=== PATIENT | male | born 1960 | race African-American/Black ===

== ENCOUNTER 2022-04-26 13:00 | Emergency (ER) | payer MEDICAID, SELFPAY ==
[2022-04-26] VITALS (7 sets, daily range): BP systolic 118–157; BP diastolic 45–88; PULSE 53–69; RESP 10–18; TEMP 36.8; O2SAT 98–100; BMI 23.5
--- NOTE | 2022-04-26 14:00 | ED_ITS ---
HPI - Chest Pain General Time Seen by Provider: 14:00 Date Seen: 04/26/22 Chief Complaint: Chest Pain Stated Complaint: Chest pain Time Seen by Provider: 04/26/22 13:59 Source: patient Mode of arrival: ambulatory Limitations: no limitations History of Present Illness HPI narrative: Patient is a 61-year-old male coming in with right-sided chest pain. He feels an area over the rib on the right side where the pain is but pain does not seem to be palpable or reproducible from that area. It is not pleuritic. Does seem to radiate up into the right chest down into the right upper quadrant of his abdomen may be over to the left upper quadrant and will wrap around into his back. There is no associated nausea vomiting or heartburn. No diarrhea. No urinary symptoms. He has not been sick with any cough or cold symptoms. No fevers chills. Denies any recent or remote trauma to the chest wall. He does admit to about a month ago he was lifting 30 lb weights doing some upper body maneuvers but did not have pain immediately at that time. He has no prior cardiopulmonary abnormality that he is aware of. No prior GA or cardiac condition. His mom had something with her heart but it was not a heart attack. He thinks his mom has had gallbladder issues. He does smoke. He has not noted any change in his symptoms with eating. 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 He believes they did routine preoperative stuff in preparation for the surgery but he cannot tell me if anything specific was done as far is stress testing etc.. complaint: chest pain Related Data Home Medications Medication Instructions Recorded Confirmed atorvastatin 80 mg tablet mg 04/26/22 clopidogrel 75 mg tablet mg 04/26/22 hydrochlorothiazide 25 mg tablet mg 04/26/22 morphine 15 mg tablet,extended mg PO 04/26/22 release Allergies Allergy/AdvReac Type Severity Reaction Status Date / Time lisinopril Allergy Verified 04/26/22 13:28 Review of Systems Status of ROS Reports: 10 or more systems reviewed and unremarkable except as noted in History and below [facility] Social History Smoking Status: Current every day smoker What tobacco products do you use: cigarettes Do you use any of these nicotine containing products: None How often do you have a drink containing alcohol: never How often do you have six or more drinks on one occasion: Never AUDIT-C Alcohol total score: 0 Non-prescribed substance use: marijuana (any form) service: No Exam Const Vital Signs, click to edit/add: Vital Signs - 24 hr 04/26/22 13:23 Temperature 98.2 F Pulse Rate [Right Pulse Oximeter] 69 Respiratory Rate 18 Blood Pressure [Left Upper Arm] 147/70 H Pulse Oximetry 98 Oxygen Delivery Method Room Air Documenting provider has reviewed patient's vital signs: yes Common normals: no apparent distress, oriented x3, no limitations, healthy appearing, alert and well nourished General appearance: cooperative, comfortable and well kempt Nutritional appearance: thin HENMT Common normals: normocephalic, head/scalp atraumatic, hearing grossly normal bilaterally, external ears normal and external nose normal Head and scalp: normocephalic and atraumatic Nose: external nose normal External ear: external ears normal Eye Common normals: PERRL, EOMs intact bilaterally, conjunctivae normal and no scleral icterus Conjunctiva: conjunctiva(e) normal Pupil: PERRL Neck & C-Spine Common normals: full ROM, no lymphadenopathy, supple, no meningeal signs, no JVD and thyroid normal Thyroid: thyroid normal Chest Common normals: inspection of chest normal Other: On the right anterior chest wall probably along the mid anterior axillary line there is a prominence of 1 of his ribs but there is no tenderness. I cannot say that it feels like a discrete mass but does seem more prominent in comparison to the other ribs in that area on the same side as well as the contralateral side. Resp Common normals: normal respiratory effort, no retractions, no use of accessory muscles and clear to auscultation bilaterally Auscultation: clear to auscultation bilaterally Cardio Common normals: no JVD, regular rate, regular rhythm, S1 normal heart sound, S2 normal heart sound, no gallops, no clicks, no murmurs and no rub Rate: regular rate Rhythm: regular rhythm Heart sounds: S1 normal and S2 normal GI Common normals: Normal to inspection, nondistended, normoactive bowel sounds present, soft to palpation, non-tender, no hepatosplenomegaly and no masses Palpation: soft and no hepatosplenomegaly Extremity Common normals: normal to inspection, full ROM, normal capillary refill, no joint enlargement, no clubbing, cyanosis or edema, no calf tenderness and no pedal edema Neuro Common normals: oriented x3 Sensorium/orientation: alert Meningeal signs: no meningeal signs Psych Appearance: well kempt Course Course Hospital Course: Reviewed with patient to the differential does include cardiopulmonary disease. Think a remote possibility could be gallbladder disease but on clinical examination he has no features of any right upper quadrant tenderness at all. Will get appropriate labs. He will be monitored on cardiac monitoring and pulse oximetry while here. Get initial EKG, portable chest x-ray. Given that he has had this for days, will look at the initial EKG. I think it is less likely to be ischemic heart disease given the duration. Will consider aspirin if I see anything different on his labs or cardiac monitoring. Reevaluation(s) Reevaluation #1: Reviewed with patient that the EKG, cardiac monitoring during his time here, D- dimer and troponin are normal. His AST is just mildly up and lipase is very minimally elevated at 325. I do not feel he has active pancreatitis at this time but do believe I would prefer to have a right upper quadrant ultrasound done to ensure no gallbladder pathology. If the ultrasound is normal, he understands I will discharge him to home for followup for repeat lipase within the next 1-2 weeks or sooner if increasing pain. This time he tells me he is out of his medicines, has an appointment with his [facility] tomorrow. States he is on gabapentin morphine and tramadol. I did subsequently go on [place] prescribing website and he indeed is on gabapentin, tramadol and morphine. He takes gabapentin 600 mg tablets, tramadol 50 mg tablets in morphine extended release 15 mg tablets. His tramadol and morphine prescriptions were obtained March 29 in should be a 30 day supply. Note March does have 1 extra day but he is seemingly off by 1 day by my count. Time: 15:25 Reevaluation #2: Patient and I discussed that his prelim ultrasound is limited by a eating recently. The preliminary report is that there is nothing significant there. If he has ongoing symptoms, would recommend re-evaluation and consideration for formal gallbladder ultrasound. We will provide 1 dose of tramadol and 1 dose of MS Contin here, he understands that he needs to obtain these through his Pain Clinic, not go through medicines early. This will be a 1 and only stop gap from us. He does understand that. Time: 16:19 Vital Signs Vital signs: Initial Vital Signs Temperature 98.2 F 04/26/22 13:23 Temperature Source Temporal Artery Scan 04/26/22 13:23 Pulse Rate 69 04/26/22 13:23 Respiratory Rate 18 04/26/22 13:23 Blood Pressure 147/70 H 04/26/22 13:23 Blood Pressure Mean 95 04/26/22 13:23 Blood Pressure Position Sitting 04/26/22 13:23 Pulse Oximetry 98 04/26/22 13:23 Oxygen Delivery Method 04/26/22 13:23 Vital Signs Temperature 98.2 F 04/26/22 13:23 Pulse Rate 69 04/26/22 13:23 Respiratory Rate 18 04/26/22 13:23 Blood Pressure 147/70 H 04/26/22 13:23 Pulse Oximetry 98 04/26/22 13:23 Oxygen Delivery Method 04/26/22 13:23 Temperature 98.2 F 04/26/22 13:23 Pulse Rate 69 04/26/22 13:23 Respiratory Rate 18 04/26/22 13:23 Blood Pressure 147/70 H 04/26/22 13:23 Pulse Oximetry 98 04/26/22 13:23 Oxygen Delivery Method 04/26/22 13:23 MDM - Chest Pain Lab Data Attestation: I reviewed the patient's lab results. Labs: Lab Results 04/26/22 04/26/22 04/26/22 Range/Units 14:20 14:20 14:20 WBC 7.18 (4.50-11.00) K/uL RBC 3.76 L (4.30-5.90) m/uL Hgb 11.5 L (13.5-17.5) gm/dL Hct 35.0 L (37.0-53.0) % MCV 93 (80-100) fL MCH 31 (26-34) pg MCHC 33 (32-36) gm/dL RDW Coeff of Lucius 14.7 (11.5-15.5) % Plt Count 247 (140-440) K/uL Neut % (Auto) 70.9 (42.0-72.0) % Lymph % (Auto) 19.8 L (20-44) % [place] % (Auto) 7.2 (0.0-11.0) % Eos % (Auto) 1.7 (0.0-7.0) % Baso % (Auto) 0.3 (0.0-3.0) % Neut # (Auto) 5.09 (1.7-7.0) K/uL Lymph # (Auto) 1.40 (0.90-2.90) K/uL [place] # (Auto) 0.50 (0.00-0.90) K/UL Eos # (Auto) 0.12 (0.00-0.50) K/uL Baso # (Auto) 0.02 (0.00-0.30) K/uL Abs Immat Gran (auto) 0.01 (0.00-0.30) K/uL D-Dimer Quant (PE/DVT) 0.47 (0.00-0.50) ug/ml Sodium 142 (135-149) mmol/L Potassium 4.5 (3.6-5.1) mmol/L Chloride 106 (96-114) mmol/L Carbon Dioxide 27 (20-32) mmol/L BUN 22 (7-30) mg/dL Creatinine 1.6 H (0.5-1.5) mg/dL Estimated Creat Clear 49.43 Estimated GFR 48 ml/min Glucose 103 (60-115) mg/dL Lactate (0.5-1.9) mmol/L Calcium 9.6 (8.4-10.6) mg/dL Total Bilirubin 0.3 (0.1-1.5) mg/dL AST 50 H (12-35) U/L ALT 46 (4-50) U/L Alkaline Phosphatase 117 (40-150) U/L Troponin I < 0.01 L (0.01-0.04) ng/mL C-Reactive Protein < 0.5 L (0.5-1.0) mg/dL NT-Pro-B Natriuret Pep 45 (0-125) PG/mL Total Protein 8.3 (6.0-8.3) g/dL Albumin 4.4 (3.3-5.0) g/dL Lipase 325 H (23-300) U/L 04/26/22 Range/Units 14:20 WBC (4.50-11.00) K/uL RBC (4.30-5.90) m/uL Hgb (13.5-17.5) gm/dL Hct (37.0-53.0) % MCV (80-100) fL MCH (26-34) pg MCHC (32-36) gm/dL RDW Coeff of Lucius (11.5-15.5) % Plt Count (140-440) K/uL Neut % (Auto) (42.0-72.0) % Lymph % (Auto) (20-44) % [place] % (Auto) (0.0-11.0) % Eos % (Auto) (0.0-7.0) % Baso % (Auto) (0.0-3.0) % Neut # (Auto) (1.7-7.0) K/uL Lymph # (Auto) (0.90-2.90) K/uL [place] # (Auto) (0.00-0.90) K/UL Eos # (Auto) (0.00-0.50) K/uL Baso # (Auto) (0.00-0.30) K/uL Abs Immat Gran (auto) (0.00-0.30) K/uL D-Dimer Quant (PE/DVT) (0.00-0.50) ug/ml Sodium (135-149) mmol/L Potassium (3.6-5.1) mmol/L Chloride (96-114) mmol/L Carbon Dioxide (20-32) mmol/L BUN (7-30) mg/dL Creatinine (0.5-1.5) mg/dL Estimated Creat Clear Estimated GFR ml/min Glucose (60-115) mg/dL Lactate 1.5 (0.5-1.9) mmol/L Calcium (8.4-10.6) mg/dL Total Bilirubin (0.1-1.5) mg/dL AST (12-35) U/L ALT (4-50) U/L Alkaline Phosphatase (40-150) U/L Troponin I (0.01-0.04) ng/mL C-Reactive Protein (0.5-1.0) mg/dL NT-Pro-B Natriuret Pep (0-125) PG/mL Total Protein (6.0-8.3) g/dL Albumin (3.3-5.0) g/dL Lipase (23-300) U/L Imaging Data Chest x-ray: Attestation: I have reviewed the pertinent imaging results. Radiologist's impression: Patient: AYO VARGHESE Facility:?[facility] Patient ID:?[id number] Site Patient ID:?[id number]. Site :?[id number] Study:?XRay Chest PCXR-04/26/2022 3:03:19 PM Ordering Physician:Floridalma Foote Final Report: Indication: Right chest pain. Technique: One view portable sitting AP upright chest x-ray. Comparison: None are available Findings: Lungs clear. Heart and pulmonary vascularity within normal limits. No pleural fluid or pneumothorax. Minor spurring both acromioclavicular joints. No other musculoskeletal abnormality identified. Impression: No evidence for acute cardiopulmonary pathology. Dictated by Flakito Pires MD @ 04/26/2022 3:06:27 PM (Electronic Signature) ECG Data Attestation: I personally reviewed and interpreted this ECG as follows: (Sinus bradycardia, 59 beats per minute. No acute pathology.) ECG interpretation date: 04/26/22 ECG interpretation time: 14:27 Prior ECG tracings: not available for review Critical Care Time Critical Care Time Critical Care Time: No Discharge Plan Discharge Clinical Impression: Chronic pain, Right-sided chest pain Condition: Stable Instructions: Chest Pain (ED), Noncardiac Chest Pain (ED) Additional Instructions: Need to schedule a follow-up with your primary care provider in the next 1-2 weeks, request that lipase and liver functions be redrawn that visit. Hopefully the level being minimally elevated today is just spurious as we sometimes can see in medicine. If you do develop increasing chest, right upper quadrant pain, develop fever or vomiting with this, do need to seek re-evaluation. Need to keep your pain clinic appointment tomorrow to get refills of your pain medicine. We will be unable to give further pain medicines for your chronic pain condition here. I would also like you to talk to your primary care provider and see if any cardiac stress testing has been done recently. Activity Level: Activity as Tolerated Prescriptions: No Action atorvastatin 80 mg tablet clopidogrel 75 mg tablet morphine 15 mg tablet extended release PO Label Comments: TAKE 1 TABLET BY MOUTH EVERY 12 HOURS FOR CHRONIC PAIN hydrochlorothiazide 25 mg tablet Follow Up/Referrals: Darby Ramirez DO [Primary Care Provider] - Stand Alone Forms: [employer] Info Instructions
--- NOTE | 2022-04-26 14:02 | CRLHL7_ITS ---
For Patients: As a result of the Century Cures Act, medical imaging exams and procedure reports are released immediately into your electronic medical record. You may view this report before your referring provider. If you have questions, please contact your health care provider. Indication: Right chest pain. Technique: One view portable sitting AP upright chest x-ray. Comparison: None are available Findings: Lungs clear. Heart and pulmonary vascularity within normal limits. No pleural fluid or pneumothorax. Minor spurring both acromioclavicular joints. No other musculoskeletal abnormality identified. Impression: No evidence for acute cardiopulmonary pathology. Dictated by Flakito Pires MD @ 04/26/2022 3:06:27 PM (Electronically Signed)
[2022-04-26 14:25] LABS: Lactate* 1.5 mmol/L (0.5-1.9)
[2022-04-26 14:26] LABS: Basophils Absolute Auto 0.02 K/uL (0.00-0.30); Basophils Percent Auto 0.3 % (0.0-3.0); Eosinophils Absolute Auto 0.12 K/uL (0.00-0.50); Eosinophils Percent Auto 1.7 % (0.0-7.0); Hemoglobin* 11.5 gm/dL (13.5-17.5); Immature Granulocytes Abs Auto 0.01 K/uL (0.00-0.30); Lymphocytes Percent Auto 19.8 % (20-44); Mean Corpuscular HGB Conc 33 gm/dL (32-36); Mean Corpuscular Hemoglobin 31 pg (26-34); Mean Corpuscular Volume 93 fL (80-100); Monocytes Percent Auto 7.2 % (0.0-11.0); Neutrophils Absolute Auto 5.09 K/uL (1.7-7.0); Neutrophils Percent Auto 70.9 % (42.0-72.0); Platelet Count* 247 K/uL (140-440); RDW Coefficient of Variation % 14.7 % (11.5-15.5); Red Blood Count 3.76 m/uL (4.30-5.90); White Blood Count* 7.18 K/uL (4.50-11.00)
[2022-04-26 14:29] LABS: Slide Review Reflex No
[2022-04-26 14:48] LABS: Albumin* 4.4 g/dL (3.3-5.0); Chloride* 106 mmol/L (96-114); Sodium* 142 mmol/L (135-149)
[2022-04-26 14:49] LABS: Potassium* 4.5 mmol/L (3.6-5.1)
[2022-04-26 14:50] LABS: Creatinine* 1.6 mg/dL (0.5-1.5); Est. Creatinine Clearance* 49.43; Estimated Glomerular Filt Rate 48 ml/min
[2022-04-26 14:51] LABS: Alanine Aminotransferase* 46 U/L (4-50); Alkaline Phosphatase* 117 U/L (40-150); Aspartate Amino Transferase* 50 U/L (12-35); Bilirubin Total* 0.3 mg/dL (0.1-1.5); Blood Urea Nitrogen* 22 mg/dL (7-30); Carbon Dioxide* 27 mmol/L (20-32); Lipase* 325 U/L (23-300); Total Protein* 8.3 g/dL (6.0-8.3)
[2022-04-26 14:52] LABS: Calcium* 9.6 mg/dL (8.4-10.6); D Dimer Quantitative* 0.47 ug/ml (0.00-0.50); Glucose* 103 mg/dL (60-115)
[2022-04-26 14:59] LABS: C Reactive Protein* < 0.5 mg/dL (0.5-1.0)
[2022-04-26 15:00] LABS: NT Pro B Type NatriureticPept* 45 PG/mL (0-125)
[2022-04-26 15:11] LABS: Troponin I* < 0.01 ng/mL (0.01-0.04)
--- NOTE | 2022-04-26 15:16 | CRLHL7_ITS ---
For Patients: As a result of the Century Cures Act, medical imaging exams and procedure reports are released immediately into your electronic medical record. You may view this report before your referring provider. If you have questions, please contact your health care provider. INDICATION: Right upper quadrant abdomen pain. TECHNIQUE: Ultrasound abdomen limited. Sonographic images of the right upper quadrant were obtained using roberts-scale and color Doppler images. COMPARISON: None. FINDINGS: Liver: The liver echotexture is slightly coarse and heterogeneous.. No masses. No intrahepatic biliary dilatation. Gallbladder: Gallbladder is decompressed, likely due to post-prandial state. Wall thickness is up to 3 millimeters, upper limits of normal but likely related to incomplete distention. No stones or sludge identified. Common bile duct: 6 millimeters. The duct is not well visualized at the pancreatic head due to overlying bowel gas. Pancreas: Not visualized due to overlying bowel gas. Right kidney: Normal in size. Normal echotexture and cortex. No suspicious masses, stones, or hydronephrosis. IMPRESSION: Pancreas is not well visualized due to overlying bowel gas. Gallbladder is decompressed. No intra or extrahepatic biliary ductal dilatation is identified within the limitations. Dictated by Lottie Peña MD @ 04/26/2022 4:37:52 PM (Electronically Signed)
[2022-04-26] MEDS: TRAMADOL HCL 50 MG TABLET PO (16:25)
== END 2022-04-26 16:50 | disposition home or self-care (01) ==
PROVIDERS: Emergency Provider Family Medicine; PCP Family Medicine
DX: R07.89 Other chest pain (principal); G89.29 Other chronic pain
CPT/HCPCS: 36415; 71045; 76705; 80053; 83605; 83690; 83880; 84484; 85025; 85379; 86140; 93005; 99284; A9270

== ENCOUNTER 2022-11-18 14:29 | Outpatient (CLI) | payer MEDICAID, SELFPAY ==
--- NOTE | 2022-11-18 14:30 | CRLHL7_ITS ---
For Patients: As a result of the Cures Act, medical imaging exams and procedure reports are released immediately into your electronic medical record. You may view this report before your referring provider. If you have questions, please contact your health care provider. Indication: Sacroiliitis Technique: Three views SI joints Comparison: None Findings: The SI joints appear intact without erosion or sclerosis. Degenerative changes L5-S1. No fracture. Vascular calcifications. Impression: Normal films of the SI joints. Dictated by Joni Glover MD @ 11/21/2022 8:55:49 AM (Electronically Signed)
--- NOTE | 2022-11-18 14:30 | CRLHL7_ITS ---
For Patients: As a result of the Century Cures Act, medical imaging exams and procedure reports are released immediately into your electronic medical record. You may view this report before your referring provider. If you have questions, please contact your health care provider. Indication: Sacroiliitis Technique: Pelvis and both hips 5 views Comparison: None Findings: Dense vascular calcifications are present. Narrowing and spurring are noted at both hips, right greater than left. Intact symphysis pubis. Small chronic ossicles adjacent to the lesser trochanters. Degenerative changes lower lumbar spine. The sacroiliac joints appear normal. No fracture. Impression: Degenerative joint disease both hips, right greater than left. Dictated by Joni Glover MD @ 11/21/2022 8:54:44 AM (Electronically Signed)
== END 2022-11-18 14:30 | disposition home or self-care (01) ==
PROVIDERS: PCP Family Medicine; Visit Provider Nurse Practitioner Family
DX: M46.1 Sacroiliitis, not elsewhere classified (principal)
CPT/HCPCS: 72202; 73521

== ENCOUNTER 2023-04-17 07:10 | Emergency (ER) | payer MEDICAID, SELFPAY ==
[2023-04-17 07:15] VITALS: BP 162/71; PULSE 77; RESP 18; TEMP 36.8; O2SAT 98; BMI 23.5
--- NOTE | 2023-04-17 07:27 | ED_ITS ---
HPI - General Adult General Time Seen by Provider: 07:27 Date Seen: 04/17/23 Chief complaint: Weakness Stated complaint: unable to hold food down Time Seen by Provider: 04/17/23 07:20 Source: patient Mode of arrival: ambulatory Limitations: no limitations History of Present Illness HPI narrative: Patient is a 62-year-old male with history of hypertension presents into the emergency department for nausea and vomiting. He states for past 3 days he has not been able to hold any solid food down. He has been able to eat a couple crackers occasionally. He has been drinking fluids without issue. Has been taking his medication as directed. States whenever he tries to eat solid foods it will cause him to vomit. Denies having symptoms like this before. Has not been around any sick people he is aware of. Denies fevers or chills. Has had diarrhea and that is the to 1 episode of incontinence yesterday. States he is feeling weak from this. Denies fevers, chills, headache, vision changes, chest pain, shortness of breath, numbness, dysuria. Does admit to some periumbilical abdominal pain. No previous abdominal surgery. Related Data Home Medications Medication Instructions Recorded Confirmed atorvastatin 80 mg tablet mg 04/26/22 03/24/23 clopidogrel 75 mg tablet mg 04/26/22 03/24/23 hydrochlorothiazide 25 mg tablet mg 04/26/22 03/24/23 allopurinol 300 mg tablet 300 mg PO 08/22/22 03/24/23 gabapentin 600 mg tablet 600 mg PO 08/22/22 03/24/23 losartan 50 mg tablet 50 mg PO 08/22/22 03/24/23 tramadol 50 mg tablet 50 mg PO 08/22/22 03/24/23 Previous Rx's Medication Instructions Recorded amoxicillin 875 mg-potassium 1 tab PO BID #20 tabs 03/24/23 clavulanate 125 mg tablet ondansetron 4 mg disintegrating 4 mg PO Q6H #20 tabs 04/17/23 tablet Allergies Allergy/AdvReac Type Severity Reaction Status Date / Time lisinopril Allergy Verified 08/22/22 12:48 Review of Systems Status of ROS: Reports: 10 or more systems reviewed and unremarkable except as noted in History and below [facility] Medical History (Updated 03/24/23 @ 17:11 by Leda Tucker APRN, DIRECTOR OF SPECIAL EVENTS) Oral infection ?K12.2 - Cellulitis and abscess of mouth (ICD-10) Social History Smoking Status: Current every day smoker What tobacco products do you use: cigarettes Do you use any of these nicotine containing products: None Second hand tobacco smoke exposure: No How often do you have a drink containing alcohol: never How often do you have six or more drinks on one occasion: Never AUDIT-C Alcohol total score: 0 Non-prescribed substance use: marijuana (any form) service: No Exam Narrative: Exam Narrative: Const: Well-nourished, Well-developed, in mild distress Eyes: PERRL, no conjunctival injection, and symmetrical lids ENMT: Atraumatic external nose and ears. Moist mucous membranes. Neck: Symmetric, trachea midline, No thyromegaly. CVS: RRR, No murmurs or gallops. Peripheral pulses 2+ and equal in all extremities RESP: Unlabored respiratory effort. Clear to auscultation bilaterally. GI: Mild periumbilical tenderness, Nondistended, No rebound or guarding. MSK:Extremities w/o deformity, Normal Active ROM Skin: Warm, Dry. No rashes or lesions. Neuro: Normal Muscle tone, No focal neurological deficits. Psych: Awake, Alert, & Oriented x3. Appropriate mood and affect. Const: Vital Signs, click to edit/add: Vital Signs - 24 hr 04/17/23 07:15 Temperature 98.3 F Pulse Rate [Pulse Oximeter] 77 Respiratory Rate 18 Blood Pressure [Ri ght Upper Arm] 162/71 H Pulse Oximetry 98 Oxygen Delivery Me thod Room Air Course Vital Signs Vital signs: Initial Vital Signs Temperature 98.3 F 04/17/23 07:15 Temperature Source Temporal Artery Scan 04/17/23 07:15 Pulse Rate 77 04/17/23 07:15 Pulse Rhythm Regular 04/17/23 07:15 Respiratory Rate 18 04/17/23 07:15 Blood Pressure 162/71 H 04/17/23 07:15 Blood Pressure Mean 101 04/17/23 07:15 Blood Pressure Position Supine 04/17/23 07:15 Pulse Oximetry 98 04/17/23 07:15 Oxygen Delivery Method Room Air 04/17/23 07:15 Vital Signs Temperature 98.3 F 04/17/23 07:15 Pulse Rate 77 04/17/23 07:15 Respiratory Rate 18 04/17/23 07:15 Blood Pressure 162/71 H 04/17/23 07:15 Pulse Oximetry 98 04/17/23 07:15 Oxygen Delivery Method Room Air 04/17/23 07:15 Temperature 98.3 F 04/17/23 07:15 Pulse Rate 77 04/17/23 07:15 Respiratory Rate 18 04/17/23 07:15 Blood Pressure 162/71 H 04/17/23 07:15 Pulse Oximetry 98 04/17/23 07:15 Oxygen Delivery Method Room Air 04/17/23 07:15 Medical Decision Making MDM Narrative Medical decision making narrative: Patient is a 62-year-old male presented emergency department for nausea and vomiting has been going on for the past 3 days. He has been able to eat very little solid food without vomiting. Has also associated diarrhea. Has been able to keep down fluids. No known sick contacts. Mild periumbilical pain no previous abdominal surgeries. Cbc, CMP, lipase all ordered for this patient. We also will give him Zofran for his nausea. At this time patient likely has a viral gastritis causing his symptoms above differential includes early appendicitis, cholecystitis, pancreatitis, very unlikely be SBO considering his no history of previous abdominal surgeries. Cbc and CMP returned showing no concerning abnormalities. We are unable to do a lipase at this time so cannot definitively rule out pancreatitis. Co was that fluids as RSV is negative. This evening his age and his symptoms I believe it is in his best interest of his CT scan of his abdomen pelvis to look for any further abnormalities. At this time CT scan has not been done new be signed out to my colleague Dr. Coronado. Lab Data Labs: Lab Results 04/17/23 04/17/23 Range/Units 07:28 07:39 WBC 6.31 (4.50-11.00) K/uL RBC 4.09 L (4.30-5.90) m/uL Hgb 12.6 L (13.5-17.5) gm/dL Hct 38.4 (37.0-53.0) % MCV 94 (80-100) fL MCH 31 (26-34) pg MCHC 33 (32-36) gm/dL RDW Coeff of Lucius 14.4 (11.5-15.5) % Plt Count 243 (140-440) K/uL Neut % (Auto) 65.8 (42.0-72.0) % Lymph % (Auto) 24.1 (20-44) % [place] % (Auto) 6.8 (0.0-11.0) % Eos % (Auto) 3.0 (0.0-7.0) % Baso % (Auto) 0.3 (0.0-3.0) % Neut # (Auto) 4.15 (1.7-7.0) K/uL Lymph # (Auto) 1.52 (0.90-2.90) K/uL [place] # (Auto) 0.40 (0.00-0.90) K/UL Eos # (Auto) 0.19 (0.00-0.50) K/uL Baso # (Auto) 0.02 (0.00-0.30) K/uL Abs Immat Gran (auto) 0.00 (0.00-0.30) K/uL Imm/Tot Granulo (auto) 0.0 % Sodium 138 (135-149) mmol/L Potassium 4.5 (3.6-5.1) mmol/L Chloride 104 (96-114) mmol/L Carbon Dioxide 25 (20-32) mmol/L Anion Gap 9 (7-15) mEq/L BUN 24 (7-30) mg/dL Creatinine 1.5 (0.5-1.5) mg/dL Estimated Creat Clear 52.05 Estimated GFR 52 ml/min Glucose 86 (60-115) mg/dL Calcium 10.1 (8.4-10.6) mg/dL Total Bilirubin 0.6 (0.1-1.5) mg/dL AST 44 H (12-35) U/L ALT 27 (4-50) U/L Alkaline Phosphatase 112 (40-150) U/L Total Protein 8.2 (6.0-8.3) g/dL Albumin 4.3 (3.3-5.0) g/dL SARS-CoV-2 (PCR) Negative SARS-CoV-2 (Negative) Influenza Type A (PCR) Negative PCR FLU A (Negative) Influenza Type B (PCR) Negative PCR FLU B (Negative) RSV (PCR) Negative PCR RSV (Negative) Discharge Plan Discharge Prescriptions: New ondansetron 4 mg tablet,disintegrating 4 mg PO Q6H Qty: 20 0RF No Action gabapentin 600 mg tablet 600 mg PO losartan 50 mg tablet 50 mg PO tramadol 50 mg tablet 50 mg PO allopurinol 300 mg tablet 300 mg PO amoxicillin-pot clavulanate 875-125 mg tablet 1 tab PO BID Qty: 20 0RF atorvastatin 80 mg tablet clopidogrel 75 mg tablet hydrochlorothiazide 25 mg tablet Follow Up/Referrals: Darby Ramirez DO [Primary Care Provider] -
[2023-04-17 07:50] LABS: Basophils Absolute Auto 0.02 K/uL (0.00-0.30); Basophils Percent Auto 0.3 % (0.0-3.0); Eosinophils Absolute Auto 0.19 K/uL (0.00-0.50); Hematocrit 38.4 % (37.0-53.0); Hemoglobin* 12.6 gm/dL (13.5-17.5); Lymphocytes Absolute Auto 1.52 K/uL (0.90-2.90); Lymphocytes Percent Auto 24.1 % (20-44); Mean Corpuscular HGB Conc 33 gm/dL (32-36); Mean Corpuscular Hemoglobin 31 pg (26-34); Mean Corpuscular Volume 94 fL (80-100); Monocytes Percent Auto 6.8 % (0.0-11.0); Neutrophils Absolute Auto 4.15 K/uL (1.7-7.0); Neutrophils Percent Auto 65.8 % (42.0-72.0); Platelet Count* 243 K/uL (140-440); RDW Coefficient of Variation % 14.4 % (11.5-15.5); Red Blood Count 4.09 m/uL (4.30-5.90); White Blood Count* 6.31 K/uL (4.50-11.00)
[2023-04-17 07:51] LABS: Slide Review Reflex No
[2023-04-17 08:02] LABS: Albumin* 4.3 g/dL (3.3-5.0); Chloride* 104 mmol/L (96-114)
[2023-04-17 08:03] LABS: Potassium* 4.5 mmol/L (3.6-5.1); Sodium* 138 mmol/L (135-149)
[2023-04-17 08:05] LABS: Alanine Aminotransferase* 27 U/L (4-50); Alkaline Phosphatase* 112 U/L (40-150); Anion Gap 9 mEq/L (7-15); Aspartate Amino Transferase* 44 U/L (12-35); Bilirubin Total* 0.6 mg/dL (0.1-1.5); Blood Urea Nitrogen* 24 mg/dL (7-30); Carbon Dioxide* 25 mmol/L (20-32); Creatinine* 1.5 mg/dL (0.5-1.5); Est. Creatinine Clearance* 52.05; Estimated Glomerular Filt Rate 52 ml/min; Total Protein* 8.2 g/dL (6.0-8.3)
[2023-04-17 08:06] LABS: Calcium* 10.1 mg/dL (8.4-10.6); Glucose* 86 mg/dL (60-115)
[2023-04-17 08:11] LABS: PCR FLU A Negative PCR FLU A (Negative); PCR FLU B Negative PCR FLU B (Negative); PCR RSV Negative PCR RSV (Negative)
--- NOTE | 2023-04-17 08:13 | CRLHL7_ITS ---
For Patients: As a result of the Century Cures Act, medical imaging exams and procedure reports are released immediately into your electronic medical record. You may view this report before your referring provider. If you have questions, please contact your health care provider. INDICATION: Nausea and periumbilical abdominal pain TECHNIQUE: Axial images were obtained from the diaphragm to the pubic symphysis. Reformats were obtained in the coronal and sagittal plane. IV Contrast: 80 cc Isovue 370 Oral Contrast: None COMPARISON: None. FINDINGS: Lower chest: No acute pulmonary consolidation. Severe coronary atherosclerosis. Liver: Unremarkable. Normal in size and attenuation. No masses. Gallbladder and bile ducts: Unremarkable. No stones or inflammation. No biliary dilatation. Spleen: Unremarkable. Normal in size without mass. Pancreas: Unremarkable. No mass or inflammation. Adrenal glands: Unremarkable. No nodules. Kidneys: Symmetric renal enhancement without hydronephrosis. Subcentimeter hypodense lesion within the left kidney, too small for characterization. Vasculature: Prominent atherosclerotic calcification with aunt abdominal aortic aneurysm. Slight fat stranding along the margin of the superior mesenteric artery proximally (series 2, image 60; series 5, image 73). GI tract: The stomach is unremarkable. No dilated loops of large or small intestine. Appendix unremarkable. Colonic diverticulosis. Pelvis: Moderate prostatic enlargement. Bones: Spondylolysis L4 with anterolisthesis L4-5 measuring 10 millimeters. IMPRESSION: 1. Colonic diverticulosis without CT evidence of diverticulitis. 2. Prominent atherosclerotic calcification with some slight fat stranding along the margin of the superior mesenteric artery. Differential includes idiopathic, retroperitoneal fibrosis or part of a vasculitis. 3. Moderate prostatic enlargement. 4. 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 Note the nomenclature is based on a rudimentary disc at the L5-S1 level. Please note that all CT scans at this facility use dose modulation, iterative reconstruction, and/or weight-based dosing when appropriate to reduce radiation dose to as low as reasonably achievable. Dictated by Emanuel Edgar MD @ 04/17/2023 10:30:49 AM (Electronically Signed)
[2023-04-17 08:15] LABS: SARS PCR* Negative SARS-CoV-2 (Negative)
[2023-04-17 08:42] VITALS: BP 127/58; PULSE 57; RESP 18; O2SAT 98
[2023-04-17] MEDS: ONDANSETRON ODT 4 MG TAB PO (08:53)
[2023-04-18 11:09] LABS: Lipase* 63 U/L (23-300)
== END 2023-04-17 10:53 | disposition home or self-care (01) ==
PROVIDERS: Emergency Provider Student in an Organized Health Care Education/Training Program; PCP Family Medicine
DX: Z20.822 Contact with and (suspected) exposure to COVID-19 (principal); K52.9 Noninfective gastroenteritis and colitis, unspecified
CPT/HCPCS: 36415; 74177; 80053; 83690; 85025; 87631; 99283; 99285; A9270; Q9967

== ENCOUNTER 2023-04-21 08:45 | Outpatient (RCR) | payer MEDICAID, SELFPAY | END 2023-06-28 10:50 | disposition home or self-care (01) | PROVIDERS: PCP Family Medicine; Visit Provider Nurse Practitioner Family | DX: M54.16 Radiculopathy, lumbar region (principal); Z51.89 Encounter for other specified aftercare | CPT/HCPCS: 97110; 97112; 97140; 97162 ==

== ENCOUNTER 2023-06-20 07:10 | Emergency (ER) | payer MEDICAID, SELFPAY ==
[2023-06-20 07:20] VITALS: BP 128/81; PULSE 87; RESP 16; TEMP 36.9; O2SAT 99; BMI 23.5
--- NOTE | 2023-06-20 09:30 | ED_ITS ---
HPI - General Adult General Chief complaint: Eye Problems Stated complaint: swollen r eye, redness Time Seen by Provider: 06/20/23 08:26 History of Present Illness HPI narrative: Pt wanting to get his eyes checked. C/o redness and swelling over the past couple days. 62-year-old man presenting to the emergency department with concern of pain and swelling in his right eye now 2nd day. Went to rub it and was particularly sore today. Family apparently noticed that it was swollen. Has not had any drainage. No trauma. No suspected foreign body. No visual changes. He does recall having stye sometime ago in his left eye that was treated with some antibiotic drops/ointment. Related Data Home Medications Medication Instructions Recorded Confirmed atorvastatin 80 mg tablet mg 04/26/22 03/24/23 clopidogrel 75 mg tablet mg 04/26/22 03/24/23 hydrochlorothiazide 25 mg tablet mg 04/26/22 03/24/23 allopurinol 300 mg tablet 300 mg PO 08/22/22 03/24/23 gabapentin 600 mg tablet 600 mg PO 08/22/22 03/24/23 losartan 50 mg tablet 50 mg PO 08/22/22 03/24/23 tramadol 50 mg tablet 50 mg PO 08/22/22 03/24/23 morphine 15 mg tablet,extended 15 mg PO Q8H chronic pain 06/20/23 06/20/23 release Previous Rx's Medication Instructions Recorded amoxicillin 875 mg-potassium 1 tab PO BID #20 tabs 03/24/23 clavulanate 125 mg tablet ondansetron 4 mg disintegrating 4 mg PO Q6H #20 tabs 04/17/23 tablet Allergies Allergy/AdvReac Type Severity Reaction Status Date / Time lisinopril Allergy Verified 06/20/23 07:25 Review of Systems Status of ROS: Reports: 6 or more systems reviewed and unremarkable except as noted in History and below [facility] Medical History Oral infection ?K12.2 - Cellulitis and abscess of mouth (ICD-10) Social History Smoking Status: Current every day smoker What tobacco products do you use: cigarettes Do you use any of these nicotine containing products: None Second hand tobacco smoke exposure: No How often do you have a drink containing alcohol: never How often do you have six or more drinks on one occasion: Never AUDIT-C Alcohol total score: 0 Non-prescribed substance use: marijuana (any form) service: No Exam Narrative: Exam Narrative: Very pleasant. NAD. Breathing easily. Left eye unremarkable. Right eye without notable scleral injection. There is perhaps some mild swelling of the upper lid but more so the right lower lid and more medially there is a punctum along the lower lid edge. Palpable nodules less swelling below that. Tender. No significant inflammatory changes or induration. Const: Vital Signs, click to edit/add: Vital Signs - 24 hr 06/20/23 07:20 Temperature 98.4 F Pulse Rate [Left P ulse Oximeter] 87 Respiratory Rate 16 Blood Pressure [Ri ght Upper Arm] 128/81 Pulse Oximetry 99 Oxygen Delivery Me thod Room Air Documenting provider has reviewed patient's vital signs: yes Course Vital Signs Vital signs: Initial Vital Signs Temperature 98.4 F 06/20/23 07:20 Temperature Source Temporal Artery Scan 06/20/23 07:20 Pulse Rate 87 06/20/23 07:20 Pulse Rhythm Regular 06/20/23 07:20 Respiratory Rate 16 06/20/23 07:20 Blood Pressure 128/81 06/20/23 07:20 Blood Pressure Mean 96 06/20/23 07:20 Blood Pressure Position Sitting 06/20/23 07:20 Pulse Oximetry 99 06/20/23 07:20 Oxygen Delivery Method Room Air 06/20/23 07:20 Vital Signs Temperature 98.4 F 06/20/23 07:20 Pulse Rate 87 06/20/23 07:20 Respiratory Rate 16 06/20/23 07:20 Blood Pressure 128/81 06/20/23 07:20 Pulse Oximetry 99 06/20/23 07:20 Oxygen Delivery Method Room Air 06/20/23 07:20 Temperature 98.4 F 06/20/23 07:20 Pulse Rate 87 06/20/23 07:20 Respiratory Rate 16 06/20/23 07:20 Blood Pressure 128/81 06/20/23 07:20 Pulse Oximetry 99 06/20/23 07:20 Oxygen Delivery Method Room Air 06/20/23 07:20 Medical Decision Making MDM Narrative Medical decision making narrative: Is not demonstrating significant discomfort that would be consistent with corneal ulceration or scleral abrasion perhaps. Clear findings of external hordeolum. Will treat as such. Given erythromycin ointment from stock. See patient discharge plan Discharge Plan Discharge Clinical Impression: Hordeolum externum of right lower eyelid Patient Disposition: Home, Self-Care Condition: Stable Additional Instructions: You might wash your eye with non-tearing baby shampoo couple of times daily over the next week. Place half a cm ribbon of this erythromycin ointment anterior right eye 3-4 times daily over the next week. Last dosing should be before you go to sleep. A couple of times daily apply warm moist compress. Prescriptions: No Action gabapentin 600 mg tablet 600 mg PO losartan 50 mg tablet 50 mg PO tramadol 50 mg tablet 50 mg PO allopurinol 300 mg tablet 300 mg PO amoxicillin-pot clavulanate 875-125 mg tablet 1 tab PO BID Qty: 20 0RF ondansetron 4 mg tablet,disintegrating 4 mg PO Q6H Qty: 20 0RF morphine 15 mg tablet extended release 15 mg PO Q8H atorvastatin 80 mg tablet clopidogrel 75 mg tablet hydrochlorothiazide 25 mg tablet Follow Up/Referrals: Darby Ramirez DO [Primary Care Provider] - Stand Alone Forms: [employer] Info Instructions
[2023-06-20] MEDS: ERYTHROMYCIN OPHTH OINT 3.5 GM 1 APPLIC EYE-RIGHT (09:38)
== END 2023-06-20 09:38 | disposition home or self-care (01) ==
PROVIDERS: Emergency Provider Family Medicine; PCP Family Medicine
DX: H00.012 Hordeolum externum right lower eyelid (principal)
CPT/HCPCS: 99283; A9270

== ENCOUNTER 2024-01-20 06:23 | Emergency (ER) | payer MEDICARE, MEDICAID, SELFPAY ==
[2024-01-20 06:27] VITALS: BP 152/82; PULSE 91; RESP 16; TEMP 35.6; O2SAT 98; BMI 23.5
--- NOTE | 2024-01-20 06:40 | ED_ITS ---
HPI - Nausea/Vomiting/Diarrhea General Date Seen: 01/20/24 Chief complaint: Diarrhea Stated complaint: diarrhea Time Seen by Provider: 01/20/24 06:26 Source: patient Mode of arrival: ambulatory Limitations: no limitations History of Present Illness HPI Narrative: Patient is a 63-year-old male with history of peripheral artery disease, hypertension presenting to emergency department for diarrhea. States for the past 3 days he has been having diarrhea every single time he eats or drinks anything. He describes it as watery diarrhea. States he has similar symptoms in past and was given some medication that helped. States the med that was given dissolved under his tongue. Denies lightheadedness, dizziness, chest pain, shortness of breath, abdominal pain, nausea, vomiting, weakness. No other concerns at all at this time other than the diarrhea. Denies any recent antibiotic use. No history of C diff. Related Data Home Medications ?Medication ?Instructions ?Recorded ?Confirmed atorvastatin 80 mg tablet mg 04/26/22 03/24/23 clopidogrel 75 mg tablet mg 04/26/22 03/24/23 hydrochlorothiazide 25 mg tablet mg 04/26/22 03/24/23 allopurinol 300 mg tablet 300 mg PO 08/22/22 03/24/23 gabapentin 600 mg tablet 600 mg PO 08/22/22 03/24/23 losartan 50 mg tablet 50 mg PO 08/22/22 03/24/23 tramadol 50 mg tablet 50 mg PO 08/22/22 03/24/23 morphine 15 mg tablet,extended 15 mg PO Q8H chronic pain 06/20/23 06/20/23 release Previous Rx's ?Medication ?Instructions ?Recorded amoxicillin 875 mg-potassium 1 tab PO BID #20 tabs 03/24/23 clavulanate 125 mg tablet ondansetron 4 mg disintegrating 4 mg PO Q6H #20 tabs 04/17/23 tablet loperamide 2 mg capsule (Imodium 2 mg PO Q6H PRN loose stool #20 01/20/24 A-D) caps ondansetron 4 mg disintegrating 4 mg PO Q6H #20 tabs 01/20/24 tablet Allergies Allergy/AdvReac Type Severity Reaction Status Date / Time lisinopril Allergy Verified 06/20/23 07:25 Review of Systems Status of ROS: Reports: 10 or more systems reviewed and unremarkable except as noted in History and below PFSH PFSH Medical History Oral infection ?K12.2 - Cellulitis and abscess of mouth (ICD-10) Social History Smoking Status: Current every day smoker What tobacco products do you use: cigarettes Do you use any of these nicotine containing products: None Second hand tobacco smoke exposure: No How often do you have a drink containing alcohol: never How often do you have six or more drinks on one occasion: Never AUDIT-C Alcohol total score: 0 Non-prescribed substance use: marijuana (any form) service: No Exam Narrative: Exam Narrative: Const: Well-nourished, Well-developed, in no distress Eyes: PERRL, no conjunctival injection, and symmetrical lids HENT: Atraumatic external nose and ears. Moist mucous membranes. Neck: Symmetric, trachea midline, No thyromegaly. CVS: RRR, No murmurs or gallops. Peripheral pulses 2+ and equal in all extremities RESP: Unlabored respiratory effort. Clear to auscultation bilaterally. GI: Nontender/Nondistended, No rebound or guarding. MSK:Extremities w/o deformity, Normal Active ROM Skin: Warm, Dry. No rashes or lesions. Neuro: Normal Muscle tone, No focal neurological deficits. Psych: Awake, Alert, & Oriented x3. Appropriate mood and affect. Const: Vital Signs, click to edit/add: Vital Signs - 24 hr 01/20/24 06:27 Temperature 96.1 F L Pulse Rate [Pulse Oximeter] 91 Respiratory Rate 16 Blood Pressure [Ri ght Upper Arm] 152/82 H Pulse Oximetry 98 Oxygen Delivery Me thod Room Air Course Vital Signs Vital signs: Initial Vital Signs Temperature 96.1 F L 01/20/24 06:27 Temperature Source Temporal Artery Scan 01/20/24 06:27 Pulse Rate 91 01/20/24 06:27 Pulse Rhythm Regular 01/20/24 06:27 Respiratory Rate 16 01/20/24 06:27 Blood Pressure 152/82 H 01/20/24 06:27 Blood Pressure Mean 105 01/20/24 06:27 Blood Pressure Position Sitting 01/20/24 06:27 Pulse Oximetry 98 01/20/24 06:27 Oxygen Delivery Method Room Air 01/20/24 06:27 Vital Signs Temperature 96.1 F L 01/20/24 06:27 Pulse Rate 91 01/20/24 06:27 Respiratory Rate 16 01/20/24 06:27 Blood Pressure 152/82 H 01/20/24 06:27 Pulse Oximetry 98 01/20/24 06:27 Oxygen Delivery Method Room Air 01/20/24 06:27 Temperature 96.1 F L 01/20/24 06:27 Pulse Rate 91 01/20/24 06:27 Respiratory Rate 16 01/20/24 06:27 Blood Pressure 152/82 H 01/20/24 06:27 Pulse Oximetry 98 01/20/24 06:27 Oxygen Delivery Method Room Air 01/20/24 06:27 MDM - Nausea/Vomiting/Diarrhea MDM Narrative Medical decision making narrative: Patient is a 63-year-old male presenting to the emergency department for diarrhea. No history of C diff and no recent antibiotic use. C diff seems very unlikely. States he only has the diarrhea after he eats. Describes as liquidy in nature. Considering he is having a lot of diarrhea I will order CBC, CMP, magnesium. He is having a pulse rate of 91 which is when the criteria for SIRS and his temperature was 96.1? but this was taken via the temporal thermometer. Either way will do a lactate. Since he is not having any abdominal pain I do not believe is necessary to do a CT scan at this time. Does not seem to be dehydrated and fluids were not given. His lab work returned showing no concerning abnormalities. He now states he has some very mild nausea and would like some Zofran. This was given to him. Also given prescription for Zofran and Imodium. He is agreeable to this plan. Has not had any bowel movements 1 the emergency department and I do not believe is necessary to test for C diff. Lab Data Labs: Lab Results 01/20/24 Range/Units 06:55 WBC 6.43 (4.50-11.00) K/uL RBC 3.89 L (4.30-5.90) m/uL Hgb 12.0 L (13.5-17.5) gm/dL Hct 36.4 L (37.0-53.0) % MCV 94 (80-100) fL MCH 31 (26-34) pg MCHC 33 (32-36) gm/dL RDW Coeff of Lucius 14.6 (11.5-15.5) % Plt Count 267 (140-440) K/uL Neut % (Auto) 67.4 (42.0-72.0) % Lymph % (Auto) 24.1 (20-44) % [place] % (Auto) 5.4 (0.0-11.0) % Eos % (Auto) 2.0 (0.0-7.0) % Baso % (Auto) 0.2 (0.0-3.0) % Neut # (Auto) 4.33 (1.7-7.0) K/uL Lymph # (Auto) 1.55 (0.90-2.90) K/uL [place] # (Auto) 0.30 (0.00-0.90) K/UL Eos # (Auto) 0.13 (0.00-0.50) K/uL Baso # (Auto) 0.01 (0.00-0.30) K/uL Abs Immat Gran (auto) 0.06 (0.00-0.30) K/uL Imm/Tot Granulo (auto) 0.9 % Sodium 140 (135-149) mmol/L Potassium 4.9 (3.6-5.1) mmol/L Chloride 109 (96-114) mmol/L Carbon Dioxide 27 (20-32) mmol/L Anion Gap 4 L (7-15) mEq/L BUN 13 (7-30) mg/dL Creatinine 1.1 (0.5-1.5) mg/dL Estimated Creat Clear 70.05 Estimated GFR 75 ml/min Glucose 102 (60-115) mg/dL Lactate 0.8 (0.5-1.9) mmol/L Calcium 9.9 (8.4-10.6) mg/dL Magnesium 1.9 (1.5-2.6) mg/dL Total Bilirubin 0.8 (0.1-1.5) mg/dL AST 39 H (12-35) U/L ALT 25 (4-50) U/L Alkaline Phosphatase 90 (40-150) U/L Total Protein 9.1 H (6.0-8.3) g/dL Albumin 4.9 (3.3-5.0) g/dL Discharge Plan Discharge Clinical Impression: Diarrhea Patient Disposition: Home, Self-Care Condition: Stable Instructions: Acute Diarrhea (ED) Additional Instructions: Use the Zofran as needed for nausea. Take female DM as directed for diarrhea. Return to emergency department for new or worsening symptoms. Make sure to stay well hydrated. Prescriptions: New loperamide [Imodium A-D] 2 mg capsule 2 mg PO Q6H PRN (Reason: loose stool) Qty: 20 0RF ondansetron 4 mg tablet,disintegrating 4 mg PO Q6H Qty: 20 0RF No Action gabapentin 600 mg tablet 600 mg PO losartan 50 mg tablet 50 mg PO tramadol 50 mg tablet 50 mg PO allopurinol 300 mg tablet 300 mg PO amoxicillin-pot clavulanate 875-125 mg tablet 1 tab PO BID Qty: 20 0RF ondansetron 4 mg tablet,disintegrating 4 mg PO Q6H Qty: 20 0RF morphine 15 mg tablet extended release 15 mg PO Q8H atorvastatin 80 mg tablet clopidogrel 75 mg tablet hydrochlorothiazide 25 mg tablet Follow Up/Referrals: Darby Ramirez DO [Primary Care Provider] - Stand Alone Forms: [employer] Info Instructions
[2024-01-20 07:00] LABS: Lactate* 0.8 mmol/L (0.5-1.9)
[2024-01-20 07:03] LABS: Basophils Absolute Auto 0.01 K/uL (0.00-0.30); Basophils Percent Auto 0.2 % (0.0-3.0); Eosinophils Absolute Auto 0.13 K/uL (0.00-0.50); Hematocrit 36.4 % (37.0-53.0); Immature Granulocytes Abs Auto 0.06 K/uL (0.00-0.30); Immature Granulocytes Pct Auto 0.9 %; Lymphocytes Absolute Auto 1.55 K/uL (0.90-2.90); Lymphocytes Percent Auto 24.1 % (20-44); Mean Corpuscular HGB Conc 33 gm/dL (32-36); Mean Corpuscular Hemoglobin 31 pg (26-34); Mean Corpuscular Volume 94 fL (80-100); Monocytes Percent Auto 5.4 % (0.0-11.0); Neutrophils Absolute Auto 4.33 K/uL (1.7-7.0); Neutrophils Percent Auto 67.4 % (42.0-72.0); Platelet Count* 267 K/uL (140-440); RDW Coefficient of Variation % 14.6 % (11.5-15.5); Red Blood Count 3.89 m/uL (4.30-5.90); White Blood Count* 6.43 K/uL (4.50-11.00)
[2024-01-20 07:09] LABS: Slide Review Reflex No
--- OUTSIDE RECORDS SUMMARY | 2024-01-20 07:22 | XMS_ITS | Referral Summary ---
Author Organization [facility] Address [address] [place] [address] Care Team Providers Care Tool Grinding Machine Operator Name Role Phone Theodore Denise MD Unavailable [phone] No Ref-Primary, Physician Primary Care Provider Allergies Active Allergy Reactions Criticality Noted Date Comments Tk Inhibitors Angioedema 12/27/2021 lip swelling. Medications Medication Sig Dispensed Refills Start Date End Date Status allopurinoL (ZYLOPRIM) 300 MG tablet [ALLOPURINOL (ZYLOPRIM) 300 MG TABLET] Take 300 mg by mouth. 08/20/2020 Active gabapentin (NEURONTIN) 600 MG tablet [GABAPENTIN (NEURONTIN) 600 MG TABLET] Take 600 mg by mouth. 07/08/2020 Active morphine (MS CONTIN) 15 MG 12 hr tablet [MORPHINE (MS CONTIN) 15 MG 12 HR TABLET] Take 15 mg by mouth. 08/05/2020 Active sildenafil (REVATIO) 20 mg tablet [SILDENAFIL (REVATIO) 20 MG TABLET] Take by mouth as needed. 08/12/2019 Active traMADoL (ULTRAM) 50 mg tablet [TRAMADOL (ULTRAM) 50 MG TABLET] TAKE 1 TABLET BY MOUTH THREE TIMES DAILY NEEDED FOR PAIN 08/28/2020 Active docusate sodium (COLACE) 100 MG capsule Take 100 mg by mouth 10/22/2021 Active hydrochlorothiazide (HYDRODIURIL) 25 MG tablet Take 25 mg by mouth 12/27/2021 Active losartan (COZAAR) 50 MG tablet Take 50 mg by mouth 12/27/2021 Active aspirin (ASA) 81 MG EC tablet Take 81 mg by mouth 04/15/2022 Active cilostazol (PLETAL) 100 MG tabletIndications:P AD (peripheral artery disease) (H24) Take 1 tablet (100 mg) by mouth 2 times daily 180 tablet 3 05/26/2022 Active diclofenac (VOLTAREN) 1 % topical gel APPLY 2GRAMS BY TOPICAL ROUTE THREE TIMES DAILY TO THE AFFECTED AREAS NEEDED FOR OA. Active RECTASMOOTHE 5 % CREA APPLY PEA SIZED AMOUNT TOPICALLY BOTH FEET THREE TIMES DAILY NEEDED 05/05/2023 Active ibuprofen (ADVIL/MOTRIN) 600 MG tablet TAKE 1 TABLET BY MOUTH EVERY 6 HOURS FOR DENTAL PAIN 12/02/2022 Active erythromycin (ROMYCIN) 5 MG/GM ophthalmic ointment 08/22/2022 Activ e atorvastatin (LIPITOR) 80 MG tabletIndications:P AD (peripheral artery disease) (H24) Take 1 tablet (80 mg) by mouth at bedtime 90 tablet 3 07/27/2023 Active Active Problems Problem Noted Date Diagnosed Date Hand pain, right 08/25/2015 Overview: Aug 2015: EMG shows mild Carpal Tunnel Syndrome findings, but normal Ulnar nerve. Pain medication agreement 12/19/2014 History of hand fracture 05/28/2014 Erectile dysfunction 08/19/2013 Tobacco use disorder 04/13/2012 Gout 01/06/2012 Hidradenitis suppurativa 01/06/2012 Hypertension 01/06/2012 Social History Tobacco Use Types Packs/Day Years Used Date Smoking Tobacco: Every Day Cigarettes Smokeless Tobacco: Never Tobacco Cessation:Ready to Q uit: No; Counseling Given: No Alcohol Use Standard Drinks/Week Comments Not Currently 0 (1 standard drink = 0.6 oz pur e alcohol) Adolescent Education Answer Date Record ed Getting School Help Needed Not on file 05/13 Sex and Gender Information Value Date Recorded Sex Assigned at Not on file Gender Identity Not on file Sexual Orientation Not on file Last Filed Vital Signs Vital Sign Reading Time Taken Comments Blood Pressure 138/71 06/05/2023 12:52 PM CDT Pulse 67 06/05/2023 12:52 PM CDT Temperature 36.4 ??C (97.5 ??F) 04/06/2022 10:15 AM C DT Respiratory Rate 18 06/05/2023 12:52 PM CDT Oxygen Saturation 99% 06/05/2023 12:52 PM CDT Inhaled Oxygen Concentration - - Weight 74.4 kg (164 lb) 05/26/2022 1:20 PM CDT Height 177.8 cm (5' 10) 04/06/2022 7:26 AM CDT Body Mass Index 23.53 04/06/2022 7:26 AM CDT Plan of Treatment Not on file Procedures Procedure Name Priority Date/Time Associated Diagnosis Comments BASIC METABOLIC PANEL STAT 04/06/2022 7:11 AM CDT HEPATITIS C (HIM EXTERNAL RESULT) Routine 08/28/2019 LIPID PROFILE Routine 04/15/2019 HIM COLONOSCOPY SCAN Routine 03/17/2016 from Last 3 Months or Most Recently Relevant to Health Maintenance Results * (ABNORMAL) Basic metabolic panel (04/06/2022 7:11 AM CDT) Sodium 141 136 - 145 mmol/L 04/06/2022 7:54 AM CDT [facility] Potassium 4.5 3.5 - 5.0 mmol/L 04/06/2022 7:54 AM CDT [facility] Chloride 108(H) 98 - 107 mmol/L 04/06/2022 7:54 AM CDT [facility] Carbon Dioxide (CO2) 28 22 - 31 mmol/L 04/06/2022 7:54 AM CDT [facility] Anion Gap 5 5 - 18 mmol/L 04/06/2022 7:54 AM CDT N [facility] Urea Nitrogen 18 8 - 22 mg/dL 04/06/2022 7:54 AM CDT [facility] Creatinine 1.37(H) 0.70 - 1.30 mg/dL 04/06/2022 7:54 AM CDT [facility] Calcium 9.5 8.5 - 10.5 mg/dL 04/06/2022 7:54 AM CDT [facility] Glucose 95 70 - 125 mg/dL 04/06/2022 7:54 AM CDT [facility] GFR Estimate 58(L) >60 mL/min/1.7 3m2 04/06/2022 7:54 AM CDT [facility] Comment:Effective July 222020 eGFRcr in adults is calculated using the 2020 CKD-EPI creatinine equation which includes age and gender (Anshul et al., NEJM, DOI: 10.1056/TXEWae3564790) Blood STRUCTURE OF LEFT UPPER LIMB / Unknown Venipuncture / Unknown 04/06/2022 7:11 AM CDT 04/06/2022 7:35 AM CDT Sheri Thompson DO LAB - BLOOD ORDERABL ES Performing Organization Address City/[facility]/ZIP Co de Phone Number [facility] [address] [place] [address], [facility] [phone] * Hep C - HIM (08/28/2019) Hep C HIM See Scanned Report [facility] Comment:Non-Reactive 08/28/2019 Narrative 08/28/2019 [facility] External Result Historical Provider LAB - HIM EXTERNAL R ESULT Performing Organization Address [facility] Co de Phone Number [facility] [address] [place] [address] * Lipid Profile (04/15/2019) Cholesterol 142 100 - 199 mg/dL [facility] Triglycerides 61 <150 mg/dL [facility] HDL Cholesterol 44 >40 mg/dL [facility] LDL Cholesterol Calculated 86 <=130 mg/dL [facility] Non HDL Chol. (LDL+VLDL) 98 <145 mg/dL [facility] Blood specimen (specimen) 04/15/2019 Narrative 04/15/2019 [facility] External Result Historical Provider LAB - BLOOD ORDERABL ES Performing Organization Address [facility] Co de Phone Number [facility] [address] [place] [address] * - HIM Screen Colonoscopy Scan (03/17/2016) Narrative Hyacinth Doran - 03/17/2016 This order was created through External Result Entry [facility] - progress note Historical Provider PROCEDURES from Last 3 Months or Most Recently Relevant to Health Maintenance Care Teams Tool Grinding Machine Operator Relationship Specialty Start Date End Date No Ref-Primary, Physician PCP - General 01/12/22 Theodore Denise MD [address] [address] Assigned Heart and Vascular Provider 03/05/21
--- OUTSIDE RECORDS SUMMARY | 2024-01-20 07:22 | XMS_ITS | Clinical Summary ---
Author Organization [facility] Address [address] [place] [address] Care Team Providers Care Department Head College Or [employer] Name Role Phone Theodore Denise MD Unavailable [phone] No Ref-Primary, Physician Primary Care Provider Allergies [...] 04/06/2022 7:26 AM CDT Plan of Treatment Health Maintenance Due Date Last Done Comments ADVANCE CARE PLANNING 1960 ANNUAL REVIEW OF HM ORDERS 1959 CT COLONOGRAPHY 1959 FIT 1959 FLEX SIG 1959 NICOTINE/TOBACCO CESSATION COUNSELING Q 1 YR 1959 YEARLY PREVENTIVE VISIT 1959 sDNA (Cologuard) 1959 HIV SCREENING 11/11/1974 LUNG CANCER SCREENING 11/11/2009 ZOSTER IMMUNIZATION (1 of 2) 11/11/2009 Pneumococcal Vaccine: Pediatrics (0 to 5 Years) and At-Risk Patients (6 to 64 Years) (2 of 2 - PCV) 11/10/2011 11/09/2010 RSV VACCINE ( & 60+ ) (1 - 1-dose 60+ series) 2019 LIPID 04/15/2020 04/15/2019 COVID-19 Vaccine (3 - 2022-2 4 season) 2023 05/20/2021, 04/12/2021 PHQ-2 (once per calendar year) 2023 INFLUENZA VACCINE (Season Ended) 2024 GLUCOSE 04/06/2025 04/06/2022 COLONOSCOPY 03/17/2026 03/17/2016 COLORECTAL CANCER SCREENING 03/17/2026 DTAP/TDAP/TD IMMUNIZATION (3 - Td or Tdap) 10/23/2031 10/22/2021, 11/09/2010 HEPATITIS C SCREENING Completed 08/28/2019 HPV IMMUNIZATION Aged Out No longer e ligible based on patient's age to complete this topic IPV IMMUNIZATION Aged Out No longer e ligible based on patient's age to complete this topic MENINGITIS IMMUNIZATION Aged Out No l onger eligible based on patient's age to complete this topic RSV MONOCLONAL ANTIBODY Aged Out No l onger eligible based on patient's age to complete this topic Procedures Procedure Name Priority Date/Time Associated Diagnosis [...] - 18 mmol/L 04/06/2022 7:54 AM CDT [facility] Urea Nitrogen 18 8 - 22 mg/dL 04/06/2022 7:54 AM CDT [facility] Creatinine 1.37(H) 0.70 - 1.30 mg/dL 04/06/2022 7:54 AM CDT [facility] Calcium 9.5 8.5 - 10.5 mg/dL 04/06/2022 7:54 AM CDT [facility] Glucose 95 70 - 125 mg/dL 04/06/2022 7:54 AM CDT [facility] GFR Estimate 58(L) >60 mL/min/1.7 3m2 04/06/2022 7:54 AM CDT [facility] Comment:Effective July 222020 eGFRcr in adults is calculated using the 2020 CKD-EPI creatinine equation which includes age and gender (Anshul et al., NEJM, DOI: 10.1056/UTHPfq3696295) Blood STRUCTURE OF LEFT UPPER LIMB / Unknown Venipuncture / Unknown 04/06/2022 7:11 AM CDT 04/06/2022 7:35 AM CDT Sheri Thompson DO LAB - BLOOD ORDERABL ES [facility] [address] [place] [address], [facility] [phone] * Hep C - HIM (08/28/2019) Hep C HIM See Scanned Report [facility] Comment:Non-Reactive 08/28/2019 Narrative 08/28/2019 [facility] External Result Historical Provider LAB - HIM EXTERNAL R ESULT Performing Organization Address [facility] Co de Phone Number [facility] [address] [place] [address] * Lipid Profile (04/15/2019) Cholesterol 142 100 - 199 mg/dL [facility] Triglycerides 61 <150 mg/dL [facility] HDL Cholesterol 44 >40 mg/dL [facility] LDL Cholesterol Calculated 86 <=130 mg/dL [facility] Non HDL Chol. (LDL+VLDL) 98 <145 mg/dL [facility] Blood specimen (specimen) 04/15/2019 Narrative 04/15/2019 [facility] External Result Historical Provider LAB - BLOOD ORDERABL ES Performing Organization Address [facility] Co de Phone Number [facility] [address] [place] [address] * - HIM Screen Colonoscopy Scan (03/17/2016) Narrative Hyacinth Doran - 03/17/2016 This order was created through External Result Entry [facility] - progress note Historical Provider PROCEDURES from Last 3 Months or Most Recently Relevant to Health Maintenance Care Teams Department Head College Or University Relationship Specialty Start Date End Date No Ref-Primary, Physician PCP - General 01/12/22 Theodore Denise MD [address] [facility] [address] [address] Assigned Heart and Vascular Provider 03/05/21
[2024-01-20 07:23] LABS: Albumin* 4.9 g/dL (3.3-5.0); Chloride* 109 mmol/L (96-114)
--- OUTSIDE RECORDS SUMMARY | 2024-01-20 07:23 | XMS_ITS | Clinical Summary ---
Author Organization [facility] Address [place], [place] [address] Care Team Providers Care Oil And Gas Recruiter Name Role Phone Darby Ramirez DO Primary Care Provider Allergies Active Allergy Reactions Criticality Noted Date Comments Tk Inhibitors Angioedema 12/27/2021 lip swelling. Medications Medication Sig Dispensed Refills Start Date End Date Status morphine CONTROLLED-RELEASE (MS CONTIN) 15 mg tabletIndications: Claudication of both lower extremities (HC) Take 1 Tablet (15 mg) by mouth every 12 hours. 60 Tablet 02/18/2021 Active cilostazoL (PLETAL) 50 mg tabletIndications: Claudication of both lower extremities (HC),PAD (peripheral artery disease) (HC) Take 1 Tablet (50 mg) by mouth 2 times daily before meals. 0 10/22/2021 Active sildenafiL, pulm.hypertension, (REVATIO) 20 mg tabletIndications: Other male erectile dysfunction TAKE 1 TO 3 TABLETS BY MOUTH EVERY DAY NEEDED 20 Tablet 3 12/27/2021 Active aspirin (ECOTRIN) 81 mg enteric coated tabletIndications: PAD (peripheral artery disease) (HC) Take 1 Tablet (81 mg) by mouth once daily with a meal. 0 04/15/2022 Active sennosides (SENNA) 8.6 mg tabletIndications: Chronic constipation Take 1 Tablet (8.6 mg) by mouth 2 times daily if needed for Constipation. 120 Tablet 5 12/26/2022 Active polyethylene glycol-electrolyte (GOLYTELY) 236-22.74-6.74 -5.86 gram suspensionIndicati ons:Encounter for screening colonoscopy Drink 2 liters the day before the procedure and 2 liters 6 hours prior to procedure. 4000 mL 10/13/2023 Active atorvastatin (LIPITOR) 80 mg tabletIndications: Hypertension,Jona ication of both lower extremities (HC),PAD (peripheral artery disease) (HC) TAKE 1 TABLET(80 MG) BY MOUTH EVERY DAY WITH THE EVENING MEAL 90 Tablet 2 07/27/2023 Active HYDROcodone-acetam inophen (5-325 mg/tablet) TAKE 1 TABLET BY MOUTH EVERY 6 HOURS NEEDED. MAX 4 PER DAY 08/23/2023 Active losartan (COZAAR) 50 mg tabletIndications: Hypertension TAKE 1 TABLET(50 MG) BY MOUTH EVERY DAY 90 Tablet 2 09/24/2023 Active hydroCHLOROthiazid e (HCTZ) 25 mg tabletIndications: Hypertension TAKE 1 TABLET(25 MG) BY MOUTH EVERY DAY 90 Tablet 2 09/24/2023 Active gabapentin (NEURONTIN) 300 mg capsuleIndications :Lumbar radiculopathy TAKE 2 CAPSULE BY MOUTH IN THE AM AND IN THE AFTERNOON AND 3 CAPSULES AT BEDTIME 630 Capsule 11/09/2023 Active allopurinoL (ZYLOPRIM) 300 mg tabletIndications: Acute idiopathic gout, unspecified site Take 1 Tablet (300 mg) by mouth once daily. 90 Tablet 1 11/26/2023 Active traMADoL (ULTRAM) 50 mg tabletIndications: Hand pain, right TAKE 1 TABLET BY MOUTH THREE TIMES DAILY NEEDED FOR PAIN 90 Tablet 2 04/15/2022 4 Discontinued (*Patient states no longer taking) erythromycin ophthalmic ointment 0.5% 08/22/2022 4 Discontinued (*Patient states no longer taking) amoxicillin-clavul anate 875-125 mg tablet (AUGMENTIN)Indicat ions:Tooth infection Take 1 Tablet by mouth two times daily with meals for 10 days. 20 Tablet 12/26/2023 4 Active Problems Problem Noted Date Diagnosed Date Chronic pain due to injury 10/22/2021 Overview: sees pain clinical partner for pain medications. Hand pain, right 08/25/2015 Overview: Aug 2015: EMG shows mild Carpal Tunnel Syndrome findings, but normal Ulnar nerve. Pain medication agreement 12/19/2014 History of hand fracture 05/28/2014 Erectile dysfunction 08/19/2013 Tobacco use disorder 04/13/2012 Hidradenitis suppurativa 01/06/2012 Hypertension 01/06/2012 Gout, unspecified 01/06/2012 Resolved Problems Problem Noted Date Diagnosed Date Resolved Date Controlled substance agreement broken 12/08/2017 01/05/2018 Encounters Date Type Department Care Team Description 12/26/2023 9:05 AM CDT Office Visit [facility] [address] [place] [address] Pao Pacheco PA Dental Problem 12/26/2023 Travel 12/26/2023 Nurse Triage [facility] [address] [place] [address] Darby Ramirez DO 12/22/2023 Orders Only [facility] Scanner 1 scan: (1-Ord) CAROL 11/25/2023 Refill [facility] [address] [place] [address] Darby Ramirez DO Refill Request (Allopurinol) 11/08/2023 Refill [facility] [address] [place] [address] Darby Ramirez DO Refill Request (Gabapentin) from Last 3 Months Immunizations Name Administration Dates Next Due COVID-19 vaccine (Moderna 100mcg/0.5mL) OSMEL HUDSON 05/20/2021,04/12/2021 Pneumococcal Poly,23-Valent (Pneumovax) 11/10/19 11 Td (Age >=7 Years) 10/22/2021 Tdap 11/09/2010 Family History Medical History Relation Name Comments Diabetes Brother 1 Stroke Brother 2 Hypertension Father Stroke Father Diabetes Mother Stroke Mother Diabetes Sister Relation Name Status Comments Brother 1 Brother 2 Father Mother Alive Sister Social History Tobacco Use Types Packs/Day Years Used Date Smoking Tobacco: Every Day Cigarettes 1.5 10 Smokeless Tobacco: Never Tobacco Cessation:Ready to Q uit: Not Asked; Counseling Given: Not Answered Comments:advised to pick quit date Alcohol Use Standard Drinks/Week Comments No 0 (1 standard drink = 0.6 oz pur e alcohol) PHQ-2 Answer Date Recorded PHQ-2 TOTAL SCORE 0 06/28/2023 Social Connections Answer Date Recorded Frequency of Communication with Friends and Fami ly 0 06/28/2023 Financial Resource Strain Answer Date R ecorded Difficulty of Paying Living Expenses 2 06/28/2023 Difficulty of Paying Living Expenses 1 06/28/2023 Food Insecurity Answer Date Recorded Worried About Running Out of Food in the Last Ye ar 1 06/28/2023 Transportation Needs Answer Date Record ed Lack of Transportation (Medical) 2 06/28/2023 Housing Stability Answer Date Recorded Unable to Pay for Housing in the Last Year 1 06/28/2023 Sex and Gender Information Value Date Recorded Sex Assigned at Not on file Gender Identity Not on file Sexual Orientation Not on file Obstetrics History Last Filed Vital Signs Vital Sign Reading Time Taken Comments Blood Pressure 116/65 12/26/2023 9:02 AM CDT Pulse 74 12/26/2023 9:02 AM CDT Temperature 36.8 ??C (98.2 ??F) 12/26/2023 9:02 AM CD T Respiratory Rate - - Oxygen Saturation 95% 12/26/2023 9:02 AM CDT Inhaled Oxygen Concentration - - Weight 75.3 kg (166 lb 1.6 oz) 12/26/2023 9:02 A M CDT Height 174 cm (5' 8.5) 06/28/2023 9:08 AM TUBE LASER OPERATOR Body Mass Index 24.89 06/28/2023 9:08 AM TUBE LASER OPERATOR Plan of Treatment Health Maintenance Due Date Last Done Comments Zoster (shingles) series for age 50+ (1 of 2) 11/11/2009 Pneumococcal series for age 6-64 (2 of 2 - PCV) 11/10/2011 11/09/2010 Colonoscopy through age 75 03/28/202103/28, 03/28/2016, 12/22/2009 COVID-19 vaccine series ( season) 2023 05/20/2021, 04/12/2021 Influenza for age 50-64 04/21/2024 BMI (ht and wt on same day) for age 18+ 06/28/2024 06/28/2023, 08/10/2020, 02/21/2020, Additional history exists Depression screening for age 12+ 06/28/2024 06/28/2023, 06/28/2023, 10/22/2021, Additional history exists Lipids for age 45-75 07/06/2028 07/06/2023, 12/26/2022, 10/22/2021, Additional history exists Tetanus booster 10/23/2031 10/22/2021, 11/09/2010 Tdap Completed 11/09/2010 Fecal testing non-DNA (FIT,FOBT,iFOBT) for age 45-75 Discontinued 03/30/2015 Hepatitis C screening for ag e 18-79 Completed 08/28/2019 HIV for age 15-65 Completed 07/06/2023 Goals Goal Patient Goal Type Associated Problems Recent Progress Patient-Stated? Author BLOOD PRESSURE - MAINTAINS BP less than 140/90 Blood Pressure No Gume Fuentes MD Procedures Procedure Name Priority Date/Time Associated Diagnosis Comments SCAN-ELECTROMYOGR AM EMG 12/22/2023 12:00 AM CDT ANTI HIV 1/2 Routine 07/06/2023 9:20 AM TUBE LASER OPERATOR Screening for HIV (human immunodeficiency virus) LIPID PANEL W REFLEX MEASURED LDL Routine 07/06/2023 9:20 AM TUBE LASER OPERATOR Lipid screening ANTI HCV Routine 08/28/2019 4:49 PM TUBE LASER OPERATOR Unexplained weight loss SCAN-COLONOSCOPY 03/28/2016 12:0 0 AM CDT OCCULT BLOOD IFOBT STOOL Routine 03/30/2015 1:08 PM CDT Screening for colorectal cancer from Last 3 Months or Most Recently Relevant to Health Maintenance Results * SCAN-ELECTROMYOGRAM EMG (12/22/2023 12:00 AM CDT) Scanner OTHER * LIPID PANEL W REFLEX MEASURED LDL (07/06/2023 9:20 AM TUBE LASER OPERATOR) CHOLESTEROL,TOTAL 133 100 - 199 mg/dL 07/06/2023 5:44 PM TUBE LASER OPERATOR [facility] Comment: Cholesterol, Total Reference Ranges Desirable <200 mg/dL Borderline 200-239 mg/dL High >=240 mg/dL TRIGLYCERIDES 57 <150 mg/dL 07/06/2023 5:44 PM TUBE LASER OPERATOR [facility] HDL CHOLESTEROL 50 >40 mg/dL 5:44 PM TUBE LASER OPERATOR [facility] NON-HDL CHOLESTEROL 83 <145 mg/dl 07/06/2023 5:44 PM TUBE LASER OPERATOR [facility] CHOL/HDL RATIO 2.66 <4.50 07/06/2023 5:44 PM TUBE LASER OPERATOR [facility] LDL CHOLESTEROL 72 <=130 mg/dL 07/06/2023 5:44 PM TUBE LASER OPERATOR [facility] VLDL CHOLESTEROL 11 <=30 mg/dL 07/06/2023 5:44 PM TUBE LASER OPERATOR [facility] PROVIDER ORDERED STATUS RANDOM 07/06/2023 5:44 PM TUBE LASER OPERATOR [facility] Blood BLOOD SPECIMEN / Unknown Venipuncture / Unknown 07/06/2023 9:20 AM TUBE LASER OPERATOR 07/06/2023 9:22 AM TUBE LASER OPERATOR Darby Ramirez DO CHEMISTRY Performing Organization Address City/[facility]/ZIP Co de Phone Number [facility] [address] [place] [address], * ANTI HIV 1/2 [46301.0] (07/06/2023 9:20 AM TUBE LASER OPERATOR) HIV-1/HIV-2 SCREEN Non-Reacti ve Non-Reacti ve 07/06/2023 6:15 PM TUBE LASER OPERATOR [facility] Comment:HIV-1 p24 and HIV-1/ HIV-2 Ab Not Detected. Blood BLOOD SPECIMEN / Unknown Venipuncture / Unknown 07/06/2023 9:20 AM TUBE LASER OPERATOR 07/06/2023 9:22 AM TUBE LASER OPERATOR Darby Ramirez DO SEND OUTS Performing Organization Address City/[facility]/ZIP Co de Phone Number [facility] [address] [place] [address], * ANTI HCV (08/28/2019 4:49 PM TUBE LASER OPERATOR) HEPATITIS C ANTIBODY Non-React alexandra Non-React alexandra 08/29/2019 1:59 PM TUBE LASER OPERATOR [facility] Comment:Antibodies to HCV no t detected; does not exclude the possibility of exposure to HCV. Blood BLOOD SPECIMEN / Unknown Butterfly / Unknown 08/28/2019 4:49 PM TUBE LASER OPERATOR 08/28/2019 4:50 PM TUBE LASER OPERATOR Darby Ramirez DO [facility]END OUTS [facility] [address] [place] [address], * SCAN-COLONOSCOPY (03/28/2016 12:00 AM CDT) Scanner OTHER * OCCULT BLOOD IFOBT STOOL (03/30/2015 1:08 PM CDT) STOOL BLOOD ,IFOBT Negative Negative, Invalid 04/03/2015 1:55 PM CDT [facility] Stool specimen (specimen) STOOL SPECIMEN / Unknown Non-Blood / Unknown 03/30/2015 1:08 PM CDT 04/03/2015 1:08 PM CDT Darby Ramirez DO LABORATORY [facility] [address] [place] [address], from Last 3 Months or Most Recently Relevant to Health Maintenance Care Teams Oil And Gas Recruiter Relationship Specialty Start Date End Date Darby Ramirez DO [address] [place] [address] PCP - General Family Practice 11/02/21
--- OUTSIDE RECORDS SUMMARY | 2024-01-20 07:23 | XMS_ITS | Encounter Summary ---
Author Organization [facility] Address [address] [place] [address] Care Team Providers Care Top Steep Tender Name Role Phone Theodore Denise MD Unavailable [phone] No Ref-Primary, Physician Primary Care Provider Reason for Visit * Reason Onset Date Comments symptome 04/07/2022 Encounter Details Date Type Department Care Team (Late st Contact Info) Description 04/07/[address] [phone] Theodore Denise MD [address] [place] [id number] symptome Social History Tobacco Use Types Packs/Day Years Used Date Smoking Tobacco: Every Day Cigarettes Smokeless Tobacco: Never Alcohol Use Standard Drinks/Week Comments Not Currently 0 (1 standard drink = 0.6 oz pur e alcohol) Sex and Gender Information Value Date Recorded Sex Assigned at Not on file Gender Identity Not on file Sexual Orientation Not on file COVID-19 Exposure Response Date Recorded In the last 10 days, have yo u been in contact with someone who was confirmed or suspected to have Coronavirus/COVID-19? No / Unsure 04/06/2022 6:32 AM CDT documented as of this encounter Miscellaneous Notes * Telephone Encounter - Leda Licea - 04/07/2022 7:57 AM CDT Reason for call: Patient reporting a symptom Symptom or request: Right side pain Duration (how long have symptoms been present): 04/06/22 Have you been treated for this before? No Additional comments: Patient called stating he had surgery yesterday on left side and that feel fine. Patient is complaining his right side is tender and cant put any weight on it without pain and iswondering if this is normal. Phone Number patient can be reached at: Home number on file [phone] (home) Best Time: anytime Can we leave a detailed message on this number: YES Call taken on 04/07/2022 at 7:57 AM by Leda Licea documented in this encounter Plan of Treatment Not on file documented as of this encounter Visit Diagnoses Not on filedocumented in this encounter Care Teams Top Steep Tender Relationship Specialty Start Date End Date No Ref-Primary, Physician PCP - General 01/12/22 Theodore Denise MD [address] [place] [id number] Assigned Heart and Vascular Provider 03/05/21 documented as of this encounter
--- OUTSIDE RECORDS SUMMARY | 2024-01-20 07:23 | XMS_ITS | Encounter Summary ---
Author Organization [facility] Address [address] [place] [address] Care Team Providers Care Vamp Maker Name Role Phone Theodore Denise MD Unavailable [phone] No Ref-Primary, Physician Primary Care Provider Reason for Visit * Reason Comments Leg Pain Encounter Details Date Type Department Care Team (Late st Contact Info) Description 02/22/2021 Office Visit - [facility] [address] [place] [phone] Theodore Denise MD [address] [place] [phone] PAD (peripheral artery disease) (H) Social History Tobacco Use Types Packs/Day Years Used Date Smoking Tobacco: Every Day Cigarettes Smokeless Tobacco: Never Alcohol Use Standard Drinks/Week Comments Not Currently 0 (1 standard drink = 0.6 oz pur e alcohol) Sex and Gender Information Value Date Recorded Sex Assigned at Not on file Gender Identity Not on file Sexual Orientation Not on file documented as of this encounter Last Filed Vital Signs Vital Sign Reading Time Taken Comments Blood Pressure 126/52 02/22/2021 11:11 AM CDT Pulse 64 02/22/2021 11:11 AM CDT Temperature 36.9 ??C (98.5 ??F) 02/22/2021 11:11 AM C DT Respiratory Rate - - Oxygen Saturation - - Inhaled Oxygen Concentration - - Weight - - Height - - Body Mass Index - - documented in this encounter Progress Notes * Yaa Hyatt - 02/22/2021 11:00 AM CDT Progress Notes by Yaa Hyatt LPN at 02/22/2021 11:00 AM Author: Yaa Hyatt LPN Service: -- Author Type: Licensed Nurse Filed: 02/22/2021 11:45 AM Encounter Date: 02/22/2021 Status: Signed Teacher Theater Arts: Yaa Hyatt LPN (Licensed Nurse) 6 month follow up- Bilateral lower extremity claudication. Carotid US today. Patient states he can walk a block or two before experiencing pain, but the pain doesn't begin until he becomes stationary. * Theodore Denise MD - 02/22/2021 11:00 AM CDT Progress Notes by Theodore Denise MD at 02/22/2021 11:00 AM Author: Theodore Denise MD Service: -- Author Type: Physician Filed: 02/22/2021 11:45 AM Encounter Date: 02/22/2021 Status: Signed Teacher Theater Arts: Theodore Denise MD (Physician) VASCULAR SURGERY PROGRESS NOTE VASCULAR SURGEON: Theodore Denise MD, RPVI LOCATION: [facility] Velasquez Abreu Date of : 1960 Age: 60 y.o. Date of Service: 02/22/2021 PRIMARY CARE PROVIDER: Provider, No Primary Care Reason for visit: Follow-up IMPRESSION: Bilateral lower extremity claudication, right is worse than left. Underlying peripheralarterial disease with multifocal disease involving bilateral SFAs. Patient is improving clinically being on best medical management therapy including aspirin, statin, and cilostazol. Patient continues to smoke three fourths of a pack a day. He states that his symptoms are not lifestyle limiting. The exercise program was not covered by his insurance but he mentions that he uses treadmill every day. RECOMMENDATION/RISKS: Patient patient symptoms I would not recommend any intervention. Would recommend follow-up in 1 year with repeat noninvasive vascular studies. Continue best medical management therapy. Emphasized importance of smoking cessation. HPI: Velasquez Abreu is a 60 y.o. male who was seen today for follow-up. Overall patient is doing well inall regards and denies any new complaints. He states that he can walk for over a block without stopping. He says that his symptoms are overall improved since we started best medical management therapy. He completed exercise program and continues to use treadmill every day. REVIEW OF SYSTEMS: A 12 point ROS was reviewed and is negative except for right lower extremity claudication PHH: No past medical history on file. No past surgical history on file. ALLERGIES: Patient has no known allergies. MEDS: Current Outpatient Medications: ? allopurinoL (ZYLOPRIM) 300 MG tablet, Take 300 mg by mouth., Disp: , Rfl: ? atorvastatin (LIPITOR) 80 MG tablet, Take 1 tablet (80 mg total) by mouth at bedtime., Disp: 90 tablet, Rfl: 3 ? gabapentin (NEURONTIN) 600 MG tablet, Take 600 mg by mouth., Disp: , Rfl: ? lisinopriL-hydrochlorothiazide (PRINZIDE,ZESTORETIC) 20-25 mg per tablet, Take 1 tablet by mouth., Disp: , Rfl: ? morphine (MS CONTIN) 15 MG 12 hr tablet, Take 15 mg by mouth., Disp: , Rfl: ? sildenafil (REVATIO) 20 mg tablet, Take by mouth as needed. , Disp: , Rfl: ? traMADoL (ULTRAM) 50 mg tablet, TAKE 1 TABLET BY MOUTH THREE TIMES DAILY NEEDED FOR PAIN, Disp: , Rfl: ? cilostazoL (PLETAL) 50 MG tablet, Take 1 tablet (50 mg total) by mouth daily for 14 days, THEN 1 tablet (50 mg total) 2 (two) times a day for 14 days, THEN 2 tablets (100 mg total) 2 (two) times a day., Disp: 402 tablet, Rfl: 0 SOCIAL HABITS: Social History Tobacco Use Smoking Status Current Every Day Smoker ? Packs/day: 0.75 ? Types: Cigarettes Smokeless Tobacco Never Used Social History Substance and Sexual Activity Alcohol Use Not Currently ? Frequency: Never ? Binge frequency: Never Social History Substance and Sexual Activity Drug Use Not on file FAMILY HISTORY: No family history on file. PE: BP 126/52 Pulse 64 Temp 98.5 ??F (36.9 ??C) Wt Readings from Last 1 Encounters: 09/24/20 168 lb (76.2 kg) There is no height or weight on file to calculate BMI. EXAM: GENERAL: This is a well-developed 60 y.o. male who appears his stated age EYES: Grossly normal. MOUTH: Buccal mucosa normal CARDIAC: Normal S1 and S2, no Murmur CHEST/LUNG: Clear lung hobson bilaterally GASTROINTESINAL (ABDOMEN):Soft, non-tender, B/S present, no pulsatile mass MUSCULOSKELETAL: Grossly normal and both lower extremities are intact. HEME/LYMPH: No lymphedema NEUROLOGIC: Focally intact, Alert and oriented x 3. PSYCH: appropriate affect INTEGUMENT: No open lesions or ulcers Pulse Exam: Monophasic signals present bilaterally DIAGNOSTIC STUDIES: Images: Us Carotid Bilateral Result Date: 02/22/2021 BILATERAL CAROTID ULTRASOUND (02/22/21) Indication: SURVEILLANCE BILATERAL CAROTID STENOSIS. Previous: NONE Symptoms: Hypertension and Current Smoker TECHNIQUE: Duplex exam performed utilizing 2D roberts-scale imaging, Doppler interrogation with color-flow and spectral waveform analysis. Right Velocity Chart (cm/sec) Location Right CCA-PS 110 CCA- ED 15 ICA-PS 130 ICA-ED 28 ECA-PS 156 ECA-ED 8.6 Vertebral- Antegrade 80 Subclavian A- Triphasic 153 Ratio ICA/CCA-PS 1.18 Ratio ICA/CCA-ED 1.86 Left Velocity Chart (cm/sec) Location Left CCA-PS 93 CCA- ED 14 ICA-PS 98 ICA-ED 21 ECA-PS 147 ECA-ED 15 Vertebral- Antegrade 92 Subclavian A- Biphasic 95 Ratio ICA/CCA-PS 1.05 Ratio ICA/CCA-ED 1.5 FINDINGS:RIGHT: There is uniformly echogenic atheromatous plaque. LEFT: There is uniformly echogenic atheromatous plaque. RIGHT: Vertebral artery and subclavian artery waveforms are antegrade. LEFT: Vertebralartery and subclavian artery waveforms are antegrade. Impression: 1. 50-69% diameter stenosis of the right ICA relative to the distal ICA diameter. The waveform is relatively normal with precise spectral window present, this would suggest that elevated velocities are probably related to tortuosity of ICA instead of real stenosis. 2. Less than 50% diameter stenosis of the left ICA relative to the distal ICA diameter. Evaluation based on velocities and NASCET criteria Category PSV (cm/s) Plaque Imaging EDV (cm/s) ICA/CCA Ratio Normal, <125 None <40 <2 Mild <50% <125 < than 50%DR stenosis <40 <2 Moderate Disease 50-69% 125-230 > than 50% DR stenosis 40-100 2.0-4.0 Severe->70% but less than near occlusion >230 > than 50% DR stenosis >100 >4.0 Near Occlusion May be low or undetectable Visible, extensive Variable Variable Occlusion No Flow Visible with no detectable lumen N/A N/A Plaquetype Description Type 1 Uniformly echolucent Type 2 Predominantly echolucent >50% Type 3 Predominantly echogenic >50% Type 4 Uniformly echogenic Type 5 Unclassified due to poor visualization Ulcer Visible Ulcerative Plaque Us Arterial Legs Bilateral Complete Result Date: 02/22/2021 Arterial Duplex Ultrasound (02/22/21) Lower Extremity Artery Evaluation Indication: SURVEILLANCE: BILATERAL LEG CLAUDICATION. RIGHT MORE THAN LEFT. Previous: NONE. 09/24/2020 CTA ABD/AO/ ILIOFEM WITH RUNOFF History: Current Smoker, Hypertension, PAD, Rest Pain and Claudication Technique: Duplex imaging is performed utilizing roberts-scale, two-dimensional images, and color-flow imaging. Doppler waveform analysis and spectral Doppler imaging is also performed. LOWER EXTREMITY ARTERIAL DUPLEX EXAM WITH WAVEFORMS Right Leg:(cm/s) Location: Velocities Waveforms EIA: 121 B TOBACCO SAMPLE PULLER: 104 B PFA: 190 B SFA Proximal: 80 /94 M SFA Mid: 119 /222/199 M SFA Distal: 97 /73 M Popliteal Artery: 62/67 M FIRE FIGHTER AIRPORT: 42 M MELLISA: 40 M DPA: 38 M Waveforms: T=Triphasic, M=Monophasic, B=Biphasic Stenotic Profile Ratio: 222 / 119 = 1.86 Left Leg:(cm/s) Location: Velocities Waveforms EIA: 75 M TOBACCO SAMPLE PULLER: 135 B PFA: 305 /149 B SFA Proximal: OCC N/A SFA Mid: OCC/ 257(RECANN.)/76 M SFA Distal: 45 M Popliteal Artery: 107/67 M FIRE FIGHTER AIRPORT: 41 M AT A: 15 M DPA: 58 M Waveforms: T=Triphasic, M=Monophasic, B=Biphasic Stenotic Profile Ratio: 305 / 135 = 2.25 Impression: Right Lower Extremity: Moderately elevated velocities at the level of mid SFA. Transition to monophasic flow with flattened systolic upstroke suggesting hemodynamically significant stenosis in the proximal SFA/mid SFA. Left Lower Extremity: Long segment occlusion of the proximalto mid SFA with transition to monophasic flow with flattened systolic upstroke distally. Moderatelyelevated velocities in the proximal profunda femoris suggesting orificial stenosis. Reference: Category Normal 1-19% 20-49% 50-99% Occluded PSV <160 cm/sec without spectral broadening <160 cm/sec with spectral broadening Increased Increased Absent Flow Ratio N/A N/A < 2.0 >2.0 N/A Post-Stenotic Turbulence No No No Yes N/A Us Ankle Brachial Indices Pre And Post Exercise Result Date: 02/22/2021 BILATERAL Ankle Brachial Index with Exercise (02/22/21) Indication: SURVEILLANCE DOM'S: BILATERAL LEG CLAUDICATION. RIGHT MORE THAN LEFT. Previous: NONE. 09/24/2020 CTA ABD/AO/ ILIOFEM WITH RUNOFF History: Current Smoker, Hypertension, PAD, Rest Pain and Claudication Resting DOM's Right: mmHg Index Brachial: 127 Ankle-(PT): 88 0.69 Ankle-(DP): 78 0.61 Digit: 63 0.49 Left: mmHg Index Brachial: 128 Ankle-(PT): 87 0.68 Ankle-(DP): 102 0.80 Digit: 68 0.53 Resting ankle-brachial index of 0.69 on the right. Toe Pressures of 63 mmHg and TBI of 0.49. Resting ankle-brachial index of 0.80 on the left. Toe Pressures of 68 mmHg and TBI of 0.53. WAVEFORMS: The right dorsalis pedis and posterior tibial usha min show monphasic waveforms. The left dorsalis pedis and posterior tibial arteries show monophasic waveforms. Exercise Testing: PAYAN RICCI TESTING: Time (min) Grade Level % Rate MPH Level of Pain (1-10) Area of Pain 1 0 2.0 0 2 0 2.0 0 3 2 2.0 0 4 2 2.0 0 5 4 2.0 6 LEFT CALF PAIN 6 4 2.0 3 BILATERAL CALF PAIN 7 6 2.0 3 BILATERAL CALF PAIN 8 6 2.0 8 STOPPED 7:42/ TOO PAINFUL Post Exercise Pressures: Location: Rest 1 minute 3 minute 5 minute 7 minute 10 minute Right Ankle PT 88 42 41 38 3838 Left Ankle DP 102 47 44 51 51 53 Left Brachial 128 156 138 133 125 117 Right DOM: 0.69 0.27 0.300.29 0.30 0.32 Left DOM: 0.80 0.30 0.32 0.38 0.41 0.45 Impression: 1. RIGHT LOWER EXTREMITY: DOM isAbnormal with an DOM of 0.69. and Mildly abnormal, but adequate for healing toe pressures of 64 mmHg. 2. LEFT LOWER EXTREMITY: DOM is Abnormal with an DOM of 0.80. and Mildly abnormal, but adequate for healing toe pressures of 68 mmHg. 3. PAYAN RICCI TESTING: Patient able to walk for a total of10 minutes . Significant drop in DOM supports that the patient's symptoms may be consistent with vascular claudication. Reference: Wound classification Grade DOM Ankle Systolic Pressure Toe Pressures0 > 0.80 > 100 mmHg > 60 mmHg 1 0.6 - 0.79 70 - 100 mmHg 40 - 59 mmHg 2 0.4 - 0.59 50-70 mmHg 30 - 39 mmHg 3 < 0.39 < 50 mmHg < 30 mmHg Digit Pressures DBI Disease Category > 0.70 Normal < 0.70 Abnormal > 30 mmHg Potential wound healing < 30 mmHg Impaired wound healingAnkle Brachial Pressures DOM Disease Category > 1.3 Likely vessel calcification with monophasic waveforms, non-diagnostic 0.95-1.30 Normal with multiphasic waveforms 0.50-0.95 Single level disease0.30-0.50 Multilevel disease < 0.30 Critical limb ischema Post Exercise Stress Testing Normal Post Stress DOM > resting DOM, or Ankle systolic pressure falls < 20% below resting DOM with return to baseline in 3 minutes Abnormal Ankle systolic pressure falls > 20% below resting DOM and /or without return to baseline within 3 minutes Volume Plethysmography Recording (VPR) at all levels Normal Sharp systolic peak, fast upstroke, prominent dicrotic notch in wave Mild Sharp systolic peak, fast upstroke, absent dicrotic notch in wave Moderate Flattened systolic peak, slowed upstroke, absent dicrotic notch in wave Severe Low-amplitude wave with = upslope and down slope Occluded Flat Line Multiple Level Segmental Pressures Normal Abnormal Upper Thigh > 1.2 pressure indices, <30 mmHg between lateral and horizontal cuffs < 0.8 pressure indices suggest proximal occlusion, 0.8-1.2 pressure indices suggest inflow disease, > 30 mmHg between lateral and horizontal cuffs LowerThigh < 30 mmHg between lateral and horizontal cuffs > 30 mmHg between lateral and horizontalcuffs Upper Calf < 30 mmHg between lateral and horizontal cuffs > 30 mmHg between lateral andhorizontal cuffs Note: As limb diameter increases, pressure measurements also increase. I personally reviewed the images and my interpretation is stable ABIs and bilateral lower extremityduplex. LABS: Creatinine Date Value Ref Range Status 08/28/2019 1.60 (H) 0.72 - 1.25 mg/dL Final 04/15/2019 1.30 (H) 0.72 - 1.25 mg/dL Final Total time spent 30 minutes face to face with patient with more than 50% time spent in counseling and coordination of care. Theodore Denise MD, [facility]GERY documented in this encounter Miscellaneous Notes * Patient Instructions - HE - Tara Moore RN - 02/22/2021 11:00 AM CDT Images from the original note were not included. Patient Instructions by Halley Moore RN at 02/22/2021 11:00 AM Author: Halley Moore RN Service: -- Author Type: Registered Nurse Filed: 02/22/2021 11:44 AM Encounter Date: 02/22/2021 Status: Signed Teacher Theater Arts: Halley Moore RN (Registered Nurse) Take 100mg of Pletal two times a day Lower Extremity Arterial Ultrasound Description Ultrasound examinations are painless and easy for the patient. The vascular laboratory will containa bed and just two or three pieces of equipment. You will be asked to remove pants or shorts and gowns will be provided. It usually takes about 30 minutes. The auto emissions technician will tuck a towel under your underpants in the groin. The gel is water-soluble and will not stain your skin or clothes. Ultrasound gel, usually warmed for your comfort, will be placed on the inner side of your legs. Through the gel, the auto emissions technician will apply to your legs a small hand-held device that emits sound waves. When the test is completed, the auto emissions technician will remove excess gel from your legs. Risks There are typically no side effects or complications associated with a lower extremity arterial duplex ultrasound. How to Prepare Eat and take medications as usual. There is no preparation required for a lower extremity arterial duplex ultrasound. What Can I Expect After the Test? The auto emissions technician will send the ultrasound images to your vascular surgeon for evaluation. Typically, a report is available in 2-3 days. If anything critical is found, it is standard practice to notify the vascular surgeon immediately. Reference: https://vascular.org/patient-resources/vascular-tests Ankle-Brachial Index (DOM) or Physiologic Test Description An ankle-brachial index test is relatively pain free. Blood pressure cuffs of various sizes are placed on your thigh, calf, foot and toes. Similar to having your blood pressure checked with an arm cuff, as the auto emissions technician inflates the cuffs, they progressively tighten and are then quickly released. You may feel some discomfort, but generally for less than 60 seconds for each measurement. You will be asked to remove your socks and shoes and possibly your pants or shorts. Gowns will be provided. It usually takes about 30-60 minutes. Depending on the initial readings and patient symptoms, you may be asked to perform a light walk linda treadmill. The auto emissions technician will apply ultrasound gel, usually warmed for your comfort, to your ankles and wrists. Through the gel, the auto emissions technician will use a small hand- held device that emits sound waves. Risks There are typically no side effects or complications associated with a physiologic study. How to Prepare Eat and take medications as usual. There is no preparation required for an ankle-brachial index (DOM) or physiologic exam. What Can I Expect After the Test? The auto emissions technician will send the ultrasound images to your vascular surgeon for evaluation. Typically, a report is available in 2-3 days. If anything critical is found, it is standard practice to notify the vascular surgeon immediately. Reference: https://vascular.org/patient-resources/vascular-tests documented in this encounter Plan of Treatment Not on file documented as of this encounter Visit Diagnoses Diagnosis PAD (peripheral artery disease) (H24) Unspecified disorders of arteries and arterioles documented in this encounter Care Teams Vamp Maker Relationship Specialty Start Date End Date No Ref-Primary, Physician PCP - General 01/12/22 Theodore Denise MD [address] [place] [address], [place] [address] Assigned Heart and Vascular Provider 03/05/21 documented as of this encounter
--- OUTSIDE RECORDS SUMMARY | 2024-01-20 07:23 | XMS_ITS | Encounter Summary ---
Author Organization [facility] Address [address] [place] [address] Care Team Providers Care Coffee Grower Name Role Phone Theodore Denise MD Unavailable [phone] No Ref-Primary, Physician Primary Care Provider Encounter Details Date Type Department Care Team (Late st Contact Info) Description 09/02/2020 Records - [facility] CONVERSION Scan, Non-Provider Social History Tobacco Use Types Packs/Day Years Used Date Smoking Tobacco: Never Assessed Sex and Gender Information Value Date Recorded Sex Assigned at Not on file Gender Identity Not on file Sexual Orientation Not on file documented as of this encounter Plan of Treatment Not on file documented as of this encounter Visit Diagnoses Not on filedocumented in this encounter Care Teams Coffee Grower Relationship Specialty Start Date End Date No Ref-Primary, Physician PCP - General 01/12/22 Theodore Denise MD [address] [facility] [address] [place] [address] Assigned Heart and Vascular Provider 03/05/21 documented as of this encounter
--- OUTSIDE RECORDS SUMMARY | 2024-01-20 07:23 | XMS_ITS | Continuity of Care Document ---
Author Organization [facility] Address [address] [place] [address] Care Team Providers Care Web Services Architect Name Role Phone Kenji Sheikh CRNA Unavailable Unavailable Procedures Procedure Date Percutaneous Image guided injection, dra pozo, or Advance Directives Directive Yes / No Effective Date File Name No Information Encounters Encounter Description Practice Location Reason(s) For Visit Diagnoses Date Provider Providers Copied on Encounter [facility], [address] [place], [place], [id number], [facility] No Information Aguilar Phillip. [address] [place], [place], [id number] , . tel:[phone] Referring Provider: Kellen Shrestha, [address] [place], [address] . tel:[phone] Family History Family Member Type Diagnosis Age At Onset No Information Payers Payer name Insurance type Covered alliance party ID Authoriza tion(s) No Information Social History Type Description Quantity Date Captured Comments Sex Male Smoking Status No Information Chief Complaint And Reason For Visit No Information Reason For Referral Reason For Referral No Information History Of Present Illness Encounter Date Complaint History Of Prese nt Illness No Information Functional Status Date Functional Assessmen t No Information Instructions Date Instruction Additional Infor mation No Information Assessments Type Assessment Date No Information Patient Care Teams Name Effective Dates (start - stop) Status Members No Information
--- OUTSIDE RECORDS SUMMARY | 2024-01-20 07:23 | XMS_ITS | Continuity of Care Document ---
Author Organization [facility] enter Address [address] [phone] Phone Care Team Providers Care Popcorn Candy Maker Name Role Phone [facility] Unavailable Unava ilable Procedures Procedure Date INJ FORAMEN EPIDURAL L/S Advance Directives Directive Yes / No Effective Date File Name No Information Encounters Encounter Description Practice Location Reason(s) For Visit Diagnoses Date Provider Providers Copied on Encounter [facility], [address] [place] [address], [id number], tel:[phone] [facility] No Information [facility]. [address] [place] [address], [id number], . tel:[phone] Referring Provider: Kellen Shrestha, [address] [place], [address] . tel:[phone] Family History Family Member Type Diagnosis Age [...]
--- OUTSIDE RECORDS SUMMARY | 2024-01-20 07:23 | XMS_ITS | Continuity of Care Document ---
Author Organization [facility] Address [address] [place] [address] Phone Care Team Providers Care Senior Principal Name Role Phone Dante ASAFSandy Unavailable Unavailable Allergies, Adverse Reactions, Alerts Substance Reaction Status Criticality lisinopril Lip swelling Active No Information Medications Medication Instructions Dosage Effective Dates (start - stop) Status Comments gabapentin 300 mg capsule take 3 capsule by oral route 3 times every day 900 MG - Active senna 8.6 mg tablet Take 1 Tablet (8.6 mg) by mouth 2 times daily if needed for Constipation. - Active aspirin 81 mg tablet,delayed release Take 81 mg by mouth - Active losartan 50 mg tablet Take 50 mg by mouth - Active hydrochlorothiazide 25 mg tablet Take 25 mg by mouth - Active amoxicillin 875 mg-potassium clavulanate 125 mg tablet take 1 tablet by oral route every 12 hours 1.00 tablet - Active Colace Clear 50 mg capsule take 1 capsule by oral route 2 times every day at bedtime as needed 50 MG - Active Revatio 20 mg tablet take 1 tablet by oral route 3 times every day 20 MG - Active atorvastatin 80 mg tablet take 1 tablet by oral route every day 80 MG - Active gabapentin 600 mg tablet take 1 tablet b y oral route 3 times every day 600 MG - Active cilostazol 50 mg tablet take 1 tablet by oral route 2 times every day 1/2 hour before or 2 hours after breakfast and dinner 50 MG - Active allopurinol 300 mg tablet take 1 tablet by oral route every day 300 MG - Active MS Contin 15 mg tablet,extended release take 1 tablet by ORAL route every 8 hours for chronic pain 15 MG - No Longer Active hydrocodone 5 mg-acetaminophen 325 mg tablet take 1 tablet by ORAL route every 6 hours prn, max 4 per day - No Longer Active MS Contin 15 mg tablet,extended release take 1 tablet by ORAL route every 8 hours for chronic pain 15 MG - No Longer Active hydrocodone 5 mg-acetaminophen 325 mg tablet take 1 tablet by ORAL route every 6 hours prn, max 4 per day - No Longer Active Procedures Procedure Date OFFICE/OUTPATIENT VISIT, EST Drug Urine Toxology With Chromatography Drug test def 8-14 classes OFFICE/OUTPATIENT VISIT, EST OFFICE/OUTPATIENT VISIT, EST OFFICE/OUTPATIENT VISIT, EST OFFICE/OUTPATIENT VISIT, EST Drug Urine Toxology With Chromatography Drug test def 8-14 classes OFFICE/OUTPATIENT VISIT, EST OFFICE/OUTPATIENT VISIT, EST OFFICE/OUTPATIENT VISIT, EST OFFICE/OUTPATIENT VISIT, EST Drug Urine Toxology With Chromatography Drug test def 8-14 classes OFFICE/OUTPATIENT VISIT, EST OFFICE/OUTPATIENT VISIT, EST OFFICE/OUTPATIENT VISIT, EST OFFICE/OUTPATIENT VISIT, EST OFFICE/OUTPATIENT VISIT, EST Foll-up eval q3mo opiod tx OFFICE/OUTPATIENT VISIT, EST Foll-up eval q3mo opiod tx OFFICE/OUTPATIENT VISIT, EST Foll-up eval q3mo opiod tx OFFICE/OUTPATIENT VISIT, EST Drug Urine Toxology With Chromatography Drug test def 8-14 classes Foll-up eval q3mo opiod tx OFFICE/OUTPATIENT VISIT, EST Foll-up eval q3mo opiod tx OFFICE/OUTPATIENT VISIT, EST INJ FORAMEN EPIDURAL L/S BILATERAL Dec- Foll-up eval q3mo opiod tx OFFICE/OUTPATIENT VISIT, EST Foll-up eval q3mo opiod tx OFFICE/OUTPATIENT VISIT, EST Foll-up eval q3mo opiod tx OFFICE/OUTPATIENT VISIT, EST Drug test def 8-14 classes Drug Urine Toxology With Chromatography Foll-up eval q3mo opiod tx OFFICE/OUTPATIENT VISIT, EST Substance Interv 15-30mn Foll-up eval q3mo opiod tx OFFICE/OUTPATIENT VISIT, EST Drug test def 8-14 classes Drug Urine Toxology With Chromatography Foll-up eval q3mo opiod tx OFFICE/OUTPATIENT VISIT, EST Foll-up eval q3mo opiod tx OFFICE/OUTPATIENT VISIT, EST OFFICE/OUTPATIENT VISIT, EST Foll-up eval q3mo opiod tx Foll-up eval q3mo opiod tx Drug test def 8-14 classes Drug Urine Toxology With Chromatography Foll-up eval q3mo opiod tx OFFICE/OUTPATIENT VISIT, EST Foll-up eval q3mo opiod tx OFFICE/OUTPATIENT VISIT, EST Foll-up eval q3mo opiod tx OFFICE/OUTPATIENT VISIT, EST Foll-up eval q3mo opiod tx OFFICE/OUTPATIENT VISIT, EST Foll-up eval q3mo opiod tx OFFICE/OUTPATIENT VISIT, EST ROUTINE BLOOD DRAW Drug test def 1-7 classes Drug Urine Toxology With Chromatography DAST 15-30 MIN OFFICE/OUTPATIENT VISIT, NEW Results Test Name Date and Time Measure Units Reference Range Abnormal Flag Status Comments Panel Description: URINE DRUG SCREEN Preliminar y Image UDT 1 AMPHETAMINE 01:46:00 -85 (Negativ e) ng/mL 0 Preliminary Performed by:[facility] (1) BARBITURATES 01:46:00 -89 (Negativ e) ng/mL 0 Preliminary Performed by:[facility] (1) COCAINE 01:46:00 -96 (Negativ e) ng/mL 0 Preliminary Performed by:[facility] (1) METHADONE 01:46:00 -101 (Negativ e) ng/mL 0 Preliminary Performed by:[facility] (1) OPIATES 01:46:00 390 (Positiv e) ng/mL 0 A Preliminary Performed by:[facility] (1) BENZODIAZEPINES 01:46:00 -103 (Negativ e) ng/mL 0 Preliminary Performed by:[facility] (1) PHENCYCLIDINE - PCP 01:47:00 -94.00 (Negativ e) ng/mL 0.00 Preliminary Performed by:[facility] (1) CANNABINOIDS - THC - MARIJUANA 01:47:00 97 (Positiv e) ng/mL 0 A Preliminary Performed by:[facility] (1) ECSTASY - MDMA 01:47:00 -79 (Negativ e) ng/mL 0 Preliminary Performed by:[facility] (1) OXYCODONE 01:47:00 -103 (Negativ e) ng/mL 0 Preliminary Performed by:[facility] (1) ETHYL ALCOHOL 01:47:00 1 (Negativ e) mg/dL 100 Preliminary Performed by:[facility] (1) URINE SPECIFIC GRAVITY 01:47:00 1.013 (Accepta ble) 1.003 - 1.035 Preliminary Performed by:[facility] (1) URINE PH 01:47:00 5.4 (Accepta ble) 4.4 - 9.0 Preliminary Performed by:[facility] (1) URINE CREATININE 01:47:00 166 (Accepta ble) mg/dL 20 - 400 Preliminary Performed by:[facility] (1) Panel Description: Full Confirmation Panel Renee khan Alprazolam 12:19:00 < 20 (CONSIST ENT) ng/mL 20.0 Final Performed by:[facility] (1) 7-Idjip-Qddesraxae 12:19:00 < 40 (CONSIST ENT) ng/mL 40.0 Final Performed by:[facility] (1) Nordiazepam 12:19:00 < 20 (CONSIST ENT) ng/mL 20.0 Final Performed by:[facility] (1) Temazepam 12:19:00 < 20 (CONSIST ENT) ng/mL 20.0 Final Performed by:[facility] (1) Lorazepam 12:19:00 < 20 (CONSIST ENT) ng/ml 20.0 Final Performed by:[facility] (1) Amphetamine 12:19:00 < 50 (CONSIST ENT) ng/mL 50.0 Final Performed by:[facility] (1) Methamphetamine 12:19:00 < 50 (CONSIST ENT) ng/mL 50.0 Final Performed by:[facility] (1) Methylphenidate 12:19:00 < 40 (CONSIST ENT) ng/mL 40.0 Final Performed by:[facility] (1) MDMA 12:19:00 < 50 (CONSIST ENT) ng/mL 50.0 Final Performed by:[facility] (1) Buprenorphine 12:19:00 < 10 (CONSIST ENT) ng/mL 10.0 Final Performed by:[facility] (1) Norbuprenorphine 12:19:00 < 40 (CONSIST ENT) ng/mL 40.0 Final Performed by:[facility] (1) Naloxone 12:19:00 < 20 (CONSIST ENT) ng/mL 20.0 Final Performed by:[facility] (1) Propoxyphene 12:19:00 < 20 (CONSIST ENT) ng/mL 20.0 Final Performed by:[facility] (1) EDDP 12:19:00 < 20 (CONSIST ENT) ng/mL 20.0 Final Performed by:[facility] (1) Carisoprodol 12:19:00 < 50 (CONSIST ENT) ng/mL 50.0 Final Performed by:[facility] (1) Meprobamate 12:19:00 < 50 (CONSIST ENT) ng/mL 50.0 Final Performed by:[facility] (1) Zolpidem 12:19:00 < 20 (CONSIST ENT) ng/mL 20.0 Final Performed by:[facility] (1) Codeine 12:19:00 < 50 (CONSIST ENT) ng/mL 50.0 Final Performed by:[facility] (1) Morphine 12:19:00 > 800 (CONSIST ENT) ng/mL 20.0 Final Performed by:[facility] (1) Hydrocodone 12:19:00 222.6 (CONSIST ENT) ng/mL 20.0 Final Performed by:[facility] (1) Hydromorphone 12:19:00 463.8 (CONSIST ENT) ng/mL 20.0 Final Performed by:[facility] (1) Oxycodone 12:19:00 < 50 (CONSIST ENT) ng/mL 50.0 Final Performed by:[facility] (1) Oxymorphone 12:19:00 < 20 (CONSIST ENT) ng/mL 20.0 Final Performed by:[facility] (1) Thebaine 12:19:00 < 10 (CONSIST ENT) ng/mL 10.0 Final Performed by:[facility] (1) Norfentanyl 12:19:00 < 20 (CONSIST ENT) ng/mL 20.0 Final Performed by:[facility] (1) 6-Acetyl Morphine 12:19:00 < 20 (CONSIST ENT) ng/mL 20.0 Final Performed by:[facility] (1) Phencyclidine 12:19:00 < 20 (CONSIST ENT) ng/mL 20.0 Final Performed by:[facility] (1) Ketamine 12:19:00 < 40 (CONSIST ENT) ng/mL 40.0 Final Performed by:[facility] (1) Benzoylecgonine(Co c Met) 12:19:00 < 10 (CONSIST ENT) ng/ml 20.0 Final Performed by:[facility] (1) Nortriptyline 12:19:00 < 50 (CONSIST ENT) ng/mL 50.0 Final Performed by:[facility] (1) Amtriptyline 12:19:00 < 50 (CONSIST ENT) ng/mL 50.0 Final Performed by:[facility] (1) Fentanyl 12:19:00 < 10 (CONSIST ENT) ng/mL 10.0 Final Performed by:[facility] (1) Norfentanyl 12:19:00 < 20 (CONSIST ENT) ng/mL 20.0 Final Performed by:[facility] (1) LSD 12:19:00 < 10 (CONSIST ENT) ng/ml 10.0 Final Performed by:[facility] (1) O Desmethyl Cis Tramadol 12:19:00 < 50 (CONSIST ENT) ng/ml 50.0 Final Performed by:[facility] (1) Zolpidem 12:19:00 < 20 (CONSIST ENT) ng/mL 20.0 Final Performed by:[facility] (1) Tapentadol 12:19:00 < 40 (CONSIST ENT) ng/mL 40.0 Final Performed by:[facility] (1) Pregabalin 12:19:00 < 50 (CONSIST ENT) ng/mL 50.0 Final Performed by:[facility] (1) Panel Description: URINE DRUG SCREEN Final Image UDT 2 AMPHETAMINE 12:19:00 -85 (Negativ e) ng/mL 0 Final Performed by:[facility] (1) BARBITURATES 12:19:00 -89 (Negativ e) ng/mL 0 Final Performed by:[facility] (1) COCAINE 12:19:00 -96 (Negativ e) ng/mL 0 Final Performed by:[facility] (1) METHADONE 12:19:00 -101 (Negativ e) ng/mL 0 Final Performed by:[facility] (1) OPIATES 12:19:00 390 (Positiv e) ng/mL 0 A Final Performed by:[facility] (1) BENZODIAZEPINES 12:19:00 -103 (Negativ e) ng/mL 0 Final Performed by:[facility] (1) PHENCYCLIDINE - PCP 12:19:00 -94.00 (Negativ e) ng/mL 0.00 Final Performed by:[facility] (1) CANNABINOIDS - THC - MARIJUANA 12:19:00 97 (Positiv e) ng/mL 0 A Final Performed by:[facility] (1) ECSTASY - MDMA 12:19:00 -79 (Negativ e) ng/mL 0 Final Performed by:[facility] (1) OXYCODONE 12:19:00 -103 (Negativ e) ng/mL 0 Final Performed by:[facility] (1) ETHYL ALCOHOL 12:19:00 1 (Negativ e) mg/dL 100 Final Performed by:[facility] (1) URINE SPECIFIC GRAVITY 12:19:00 1.013 (Accepta ble) 1.003 - 1.035 Final Performed by:[facility] (1) URINE PH 12:19:00 5.4 (Accepta ble) 4.4 - 9.0 Final Performed by:[facility] (1) URINE CREATININE 12:19:00 166 (Accepta ble) mg/dL 20 - 400 Final Performed by:[facility] (1) Advance Directives Directive Yes / No Effective Date File Name No Information Encounters Encounter Description Practice Location Reason(s) For Visit Diagnoses Date Provider Providers Copied on Encounter OFFICE/OUTPA TIENT VISIT, EST [facility], [address] [place] [address], [id number] , [place] tel: [phone] [facility] low back pain (chief complaint) Chronic pain syndromePADRadiculo ramy, lumbar regionPain in right handPain in right footLong term (current) use of opiate analgesicEncounter for therapeutic drug level monitoring 4 Dante Delgado. [address], [place], [id number] , [place]. tel: [phone] Referring Provider: Ac Ortiz[address], [address]. tel:[phone] [facility], [address] [place] [address], [id number] , [place] tel: [phone] [facility] No Information 4 Dante Delgado. [address] [facility] [address], [place], [place], [id number] , [place]. tel: [phone] OFFICE/OUTPA TIENT VISIT, EST [facility], [address] [place] [address], [id number] , [place] tel:[phone] [facility] low back pain (chief complaint) Chronic pain syndromePADRadiculo ramy, lumbar regionPain in right handPain in right footLong term (current) use of opiate analgesic Nov-0 - 4 Dante Delgado. [address] [place] [address], [place], [place], [id number] , [place]. tel:[phone] Referring Provider: Darby Ramirez [address], [address]. tel:[phone] OFFICE/OUTPA TIENT VISIT, [facility], [address] [place] [address], [id number] , [place] tel:[phone] [facility] low back pain (chief complaint) Chronic pain syndromePADRadiculo ramy, lumbar regionPain in right handPain in right footLong term (current) use of opiate analgesic Oct-0 [address] Tiffany Sandy[address] [place] [address], [id number] , [place]. tel:[phone] Referring Provider: Darby Ramirez [address], [address]. tel:[phone] OFFICE/OUTPA TIENT VISIT, [facility], [address] [place] [address], [id number] , [place] tel:[phone] [facility] low back pain (chief complaint) Chronic pain syndromePADRadiculo ramy, lumbar regionPain in right handPain in right footLong term (current) use of opiate analgesic Fe-0 4 Nyonge Sandy. [address] [place] [address], [id number] , [place]. tel:[phone] Referring Provider: Darby Ramirez [address], [address]. tel:[phone] OFFICE/OUTPA TIENT VISIT, [facility], [address] [place] [address], [id number] , [place] tel:[phone] [facility] low back pain (chief complaint) Chronic pain syndromePADRadiculo ramy, lumbar regionPain in right handPain in right footLong term (current) use of opiate analgesic Doni-0 4 Nyongesa Sandy. [address] [place] [address] e, [place], [id number] , [place]. tel:[phone] Referring Provider: Jenni [facility] [address], [address]. tel:[phone] [facility], [address] [place] [address], [id number] , [place] tel: [phone] [facility] No Information 3 [facility]. [address], [place], [place], [id number] , [place]. tel: [phone] OFFICE/OUTPA TIENT VISIT, [facility], [address] [place] [address], [id number] , [place] tel: [phone] [facility] low back pain (chief complaint) Chronic pain syndromePADRadiculo ramy, lumbar regionPain in right handPain in right footLong term (current) use of opiate analgesicEncounter for therapeutic drug level monitoring 3 [facility]. [address] [place] [address], [id number] , [place]. tel:[phone] Referring Provider: Darby Ramirez [address], [address]. tel:[phone] OFFICE/OUTPA TIENT VISIT, [facility], [address] [place] [address], [id number] , [place] tel:[phone] [facility] low back pain (chief complaint) Chronic pain syndromePADRadiculo ramy, lumbar regionPain in right footLong term (current) use of opiate analgesicPain in right hand 3 [facility]. [address] [place] [address], [id number] , [place]. tel:[phone] Referring Provider: Darby Ramirez [address], [address]. tel:[phone] OFFICE/OUTPA TIENT VISIT, [facility], [address] [place] [address], [id number] , [place] [phone] [facility] [place] low back pain (chief complaint) Chronic pain syndromePADRadiculo ramy, lumbar regionPain in right footPain in left footLong term (current) use of opiate analgesic May-0 3 [facility]. [address] [facility] [address], [place], [place], [id number] , [place]. tel:[phone] Referring Provider: Darby Ramirez [address], [address]. tel:[phone] OFFICE/OUTPA TIENT VISIT, [facility], [address] [place] [address], [id number] , [place] [phone] [facility] low back pain (chief complaint) Chronic pain syndromePADRadiculo ramy, lumbar regionLong term (current) use of opiate analgesicEncounter for therapeutic drug level monitoringPain in right footPain in left foot Sep-0 3 [facility]. [address] [facility] [address], [place], [place], [id number] , [place]. tel:[phone] Referring Provider: Darby Ramirez [address], [address]. tel:[phone] [facility], [address] [place] [address], [id number] , [place] [phone] [facility] [place] No Information Sep-0 3 [facility]. [address] [address] [address] [address], [place], [place], [id number] , [place]. [phone] OFFICE/OUTPA TIENT VISIT, [facility], [address] [place] [address], [id number] , [place] tel:[phone] [facility] [place] low back pain (chief complaint) Chronic pain syndromePADPain in right hipPain in left hipSacroiliitis, not elsewhere classifiedRadiculop athy, lumbar regionPain in right handLong term (current) use of opiate analgesic 3 Nyongesa Sandy. [address] [facility] [address], [place], [place], [id number] , [place]. tel:[phone] Referring Provider: Darby Ramirez [address], [address]. tel:[phone] OFFICE/OUTPA TIENT VISIT, [facility], [address] [place] [address], [id number] , [place] tel: [phone] [facility] low back pain (chief complaint) Chronic pain syndromePADPain in right hipPain in left hipSacroiliitis, not elsewhere classifiedRadiculop athy, lumbar regionPain in right handLong term (current) use of opiate analgesic 3 Wyongesa Sandy. [address] [facility] [address] [facility] [address], [place], [place], [id number] , [place]. tel:[phone] Referring Provider: Darby Ramirez [address], [address]. tel:[phone] OFFICE/OUTPA TIENT VISIT, [facility], [address] [place] [address], [id number] , [place] tel: [phone] [facility] low back pain (chief complaint) Chronic pain syndromePADPain in right hipPain in left hipSacroiliitis, not elsewhere classifiedRadiculop athy, lumbar regionPain in right handLong term (current) use of opiate analgesic 3 Wyongesa Sandy. [address] [place] [address], [place], [place], [id number] , [place]. tel:[phone] Referring Provider: Darby Ramirez [facility] [address], [address]. tel:[phone] OFFICE/OUTPA TIENT VISIT, [facility], [address] [place] [address], [id number] , [place] tel:[phone] [facility] low back pain (chief complaint) Chronic pain syndromePADPain in right hipPain in left hipSacroiliitis, not elsewhere classifiedRadiculop athy, lumbar regionPain in right handLong term (current) use of opiate analgesicEncounter for therapeutic drug level monitoring 3 Dante Delgado. [address] [facility] [address], [place], [id number] , [place]. tel:[phone] Referring Provider: Darby Ramirez [address], [address]. tel:[phone] OFFICE/OUTPA TIENT VISIT, [facility], [address] [place] [address], [id number] , [place] tel:[phone] [facility] [place] low back pain (chief complaint) Chronic pain syndromePADSacroili itis, not elsewhere classifiedRadiculop athy, lumbar regionPain in right handLong term (current) use of opiate analgesicPain in right hipPain in left hip 3 Dante Delgado. [address] [facility] [address], [place], [id number] , [place]. tel:[phone] Referring Provider: Darby Ramirez[address], [address]. tel:[phone] [facility], [address] [place] [address], [id number] , [place] tel:[phone] [facility] [place] No Information 3 Diogo Dey. [address] [place] [address], [id number] , [place]. tel:[phone] OFFICE/OUTPA TIENT VISIT, EST [facility], [address] [place] [address], [id number] , [place] tel:[phone] [facility] [place] low back pain (chief complaint) Chronic pain syndromePADSacroili itis, not elsewhere classifiedRadiculop athy, lumbar regionPain in right handLong term (current) use of opiate analgesic 3 Dante Delgado. [address] [facility], [place], [id number] , [place]. tel: [phone] Referring Provider: Darby Ramirez [address], [address]. tel:[phone] OFFICE/OUTPA TIENT VISIT, [facility], [address] [place] [address], [id number] , [place] tel: [phone] [facility] low back pain (chief complaint) Chronic pain syndromePADSacroili itis, not elsewhere classifiedRadiculop athy, lumbar regionPain in right handLong term (current) use of opiate analgesic Oct-2 0- 3 [facility]. [address] [address], [place], [place], [id number] , [place]. tel: [phone] Referring Provider: Darby Ramirez [address], [address]. tel:[phone] OFFICE/OUTPA TIENT VISIT, [facility], [address] [place] [address], [id number] , [place] tel: [phone] [facility] low back pain (chief complaint) Chronic pain syndromePADSacroili itis, not elsewhere classifiedRadiculop athy, lumbar regionPain in right handLong term (current) use of opiate analgesicEncounter for therapeutic drug level monitoring 3 [facility]. [address] [facility] [address], [place], [place], [id number] , [place]. tel: [phone] Referring Provider: Darby Ramirez [address], [address]. tel:[phone] [facility], [address] [place] [address], [id number] , [place] tel: [phone] [facility] No Information 3 [facility]. [address] [facility] [address], [place], [place], [id number] , [place]. tel: [phone] Referring Provider: Darby Ramirez [address], [address]. tel:[phone] OFFICE/OUTPA TIENT VISIT, [facility], [address] [place] [address], [id number] , [place] tel: [phone] [facility] low back pain (chief complaint) Chronic pain syndromePADRadiculo ramy, lumbar regionPain in right handLong term (current) use of opiate analgesicSacroiliit is, not elsewhere classified 3 Nyongesa Sandy. [address] [place] [address] [address], [place], [place], [id number] , [place]. tel: [phone] Referring Provider: Jenni Ortiz [address], [facility]. tel:[phone] OFFICE/OUTPA TIENT VISIT, [facility], [address] [place] [address], [id number] , [place] tel: [phone] [facility] Pain [facility] low back pain (chief complaint) Chronic pain syndromePADRadiculo ramy, lumbar regionPain in right handLong term (current) use of opiate analgesic 2 Nyongesa Sandy. [id number] [place] [address] [address], [place], [place], [id number] , [place]. tel: [phone] Referring Provider: [facility] [address], [address]. tel:[phone] [facility], [address] [place] [address], [id number] , [place] tel: [phone] [facility]inosaur Radiculopathy, lumbar region 2 Henrietta Foreman. [address] [place] [address], [id number] , [place]. tel: [phone] Referring Provider: Jenni Ortiz [address], [address]. tel:[phone] OFFICE/OUTPA TIENT VISIT, [facility], [address] [place] [address], [id number] , [place] tel:[phone] [facility] low back pain (chief complaint) Chronic pain syndromePADRadiculo ramy, lumbar regionPain in right handLong term (current) use of opiate analgesic Jun-2 2 Nyongesa Sandy. [address] [facility] [address], [place], [place], [id number] , [place]. tel:[phone] Referring Provider: Darby Ramirez [address], [address]. tel:[phone] OFFICE/OUTPA TIENT VISIT, [facility], [address] [place] [address], [id number] , [place] tel:[phone] [facility] low back pain (chief complaint) Chronic pain syndromePADRadiculo ramy, lumbar regionPain in right handLong term (current) use of opiate analgesic Jun-0 2 Nyongesa Sandy. [address] [address], [place], [place], [id number] , [place]. tel:[phone] Referring Provider: Darby Ramirez [address], [address]. tel:[phone] OFFICE/OUTPA TIENT VISIT, EST [facility], [address] [place] [address], [id number] , [place] tel:[phone] [facility] low back pain (chief complaint) Chronic pain syndromePADRadiculo ramy, lumbar regionPain in right handLong term (current) use of opiate analgesicEncounter for therapeutic drug level monitoring 2 Nyongesa Sandy. [address] [facility] [address] [address], [place], [place], [id number] , [place]. tel:[phone] Referring Provider: Darby Ramirez [address], [address]. tel:[phone] [facility], [address] [place] [address], [id number] , [place] tel:[phone] [facility] No Information 0 2 Nyongesa Sandy. [address], [place], [id number] , [place]. tel:[phone] Referring Provider: Darby Ramirez [address], [address]. tel:[phone] OFFICE/OUTPA TIENT VISIT, [facility], [address] [place] [address], [id number] , [place] tel: [phone] [facility] low back pain (chief complaint) Chronic pain syndromePADRadiculo ramy, lumbar regionPain in right handLong term (current) use of opiate analgesicEncounter for screening for other disorder Sep-0 2 Wyjerri Delgado. [id number] [place] [address], [place], [place], [id number] , [place]. tel:[phone] Referring Provider: Darby Ramirez [address], [address]. tel:[phone] OFFICE/OUTPA TIENT VISIT, [facility], [address] [place] [address], [id number] , [place] tel: [phone] [facility] low back pain (chief complaint) Chronic pain syndromeRadiculopat hy, lumbar regionPain in right handLong term (current) use of opiate analgesicPAD Aug-0 2 Wyjerri Delgado. [address] [facility] [address] [address], [place], [place], [id number] , [place]. tel:[phone] Referring Provider: Darby Ramirez [address], [address]. tel:[phone] [facility], [address] [place] [address], [id number] , [place] tel:[phone] [facility] No Information 0 2 Dante Delgado. [address] [facility] 11 [facility] 100, [place], [id number] , [place]. tel:[phone] Referring Provider: Tiburcio Montes, [address] [place], [address] . tel:[phone] OFFICE/OUTPA TIENT VISIT, [facility], [address] [place] [address], [id number] , [place] tel: [phone] [facility] low back pain (chief complaint) Chronic pain syndromeRadiculopat hy, lumbar regionPain in right handUnspecified Housing or Economic ProblemLong term (current) use of opiate analgesic Tal-0 6- 2 Nyongesa Sandy. [address], [place], [place], [id number] , [place]. tel: [phone] Referring Provider: [facility] [address], [address]. tel:[phone] OFFICE/OUTPA TIENT VISIT, [facility], [address] [place] [address], [id number] , [place] tel: [phone] [facility] low back pain (chief complaint) Chronic pain syndromeRadiculopat hy, lumbar regionPain in right handUnspecified Housing or Economic ProblemLong term (current) use of opiate analgesic Eric-0 2 Nyongesa Sandy. [address] [place] [address], [place], [place], [id number] , [place]. tel: [phone] Referring Provider: Ac Ortiz[address], [address]. tel:[phone] OFFICE/OUTPA TIENT VISIT, [facility], [address] [place] [address], [id number] , [place] tel: [phone] [facility] low back pain (chief complaint) Chronic pain syndromeRadiculopat hy, lumbar regionPain in right handLong term (current) use of opiate analgesicUnspecifie d Housing or Economic Problem May-0 5- 2 Nyongesa Sandy. [address], [place], [place], [id number] , [place]. tel:[phone] Referring Provider: Darby Detert, [address], [address]. tel:[phone] [facility], [address] [place] [address], [id number] , [place] tel:[phone] [facility] low back pain (chief complaint) Chronic pain syndromeRadiculopat hy, lumbar regionPain in right handLong term (current) use of opiate analgesic Apr-0 2 Arpitaongesa Sandy. [address] [facility] [address], [place], [place], [id number] , [place]. tel:[phone] Referring Provider: Darby Ramirez, [address], [address]. tel:[phone] [facility], [address] [place] [address], [id number] , [place] tel:[phone] [facility] No Information 2 Nyongesa Sandy. [address] [place] [address] [address], [place], [id number] , [place]. tel:[phone] Referring Provider: Tiburcio Montes, [address] [place], [place] [address], [address] . tel:[phone] OFFICE/OUTPA TIENT VISIT, [facility], [address] [place] [address], [id number] , [place] tel:[phone] [facility] low back pain (chief complaint) Pain in right handLong term (current) use of opiate analgesicChronic pain syndromeRadiculopat hy, lumbar regionEncounter for therapeutic drug level monitoring 2 Tiffanysa Sandy. [address] [facility] [address], [place], [id number] , [place]. tel:[phone] Referring Provider: Darby Ramirez, [address], [address]. tel:[phone] OFFICE/OUTPA TIENT VISIT, [facility], [address] [place] [address], [id number] , [place] tel: [phone] [facility] low back pain (chief complaint) Pain in right handLong term (current) use of opiate analgesicChronic pain syndromeRadiculopat hy, lumbar region 1 Nyongesa Sandy. [address] [facility] 11 [facility] 100, [place], [place], [id number] , [place]. tel: [phone] Referring Provider: Darby Ramirez [address], [address]. tel:[phone] OFFICE/OUTPA TIENT VISIT, [facility], [address] [place] [address], [id number] , [place] tel: [phone] [facility] low back pain (chief complaint) Pain in right handLong term (current) use of opiate analgesicChronic pain syndromeRadiculopat hy, lumbar region 1 Nyongesa Sandy. [address] [address], [place], [place], [id number] , [place]. tel: [phone] Referring Provider: Darby Ramirez [address], [address]. tel:[phone] OFFICE/OUTPA TIENT VISIT, [facility], [address] [place] [address], [id number] , [place] tel: [phone] [facility] low back pain (chief complaint) Radiculopathy, lumbar regionPain in right handLong term (current) use of opiate analgesicChronic pain syndrome Sep-0 1 Nyongesa Sandy. [address] [facility] 11 [facility] [address], [place], [place], [id number] , [place]. tel: [phone] Referring Provider: Darby Ramirez [address], [address]. tel:[phone] OFFICE/OUTPA TIENT VISIT, [facility], [address] [place] [address], [id number] , [place] tel: [phone] [facility] low back pain (chief complaint) Radiculopathy, lumbar regionPain in right handLong term (current) use of opiate analgesicChronic pain syndrome 1 Dante Delgado. [address] [facility] [address], [place], [id number] , [place]. [phone] Referring Provider: Ac Ortiz[address], [address]. tel:[phone] [facility], [address] [place] [address], [id number] , [place] [phone] [facility] No Information Dante Delgado. [address] [facility] [address], [place], [id number] , [place]. [phone] Referring Provider: Tiburcio Montes, [address] [place] [address] [place], [address] . tel:[phone] OFFICE/OUTPA TIENT VISIT, [facility], [address] [place] [address], [id number] , [place] tel:[phone] [facility] low back pain (chief complaint) hand pain right (chief complaint) Chronic pain syndromeEncounter for screening for other disorderRadiculopat hy, lumbar regionPain in right handEncounter for therapeutic drug level monitoringLong term (current) use of opiate analgesic Dante Delgado. [address] [facility] [address], [place], [id number] , [place]. [phone] Referring Provider: Jenni Ortiz [address], [address]. tel:[phone] Family History Family Member Type Diagnosis Age At Onset No Information Payers Payer name Insurance type Covered green party ID Khanh onofre(s) Medicare MB [id number] Ne [facility] [id number] Social History Type Description Quantity Date Captured Comments Alcohol Use Details No Caffeine Use Details Unknown Tobacco Use Status Occasional cigarette smoker Smoking Status Heavy tobacco smoker Smoking Tobacco Use Details Cigarette: No Details Available Cigarette: 1 Packs per day Sex Male Chief Complaint And Reason For Visit From encounter dated 12/20/2023 09:20'. low back pain (chief complaint). Description: Severity level is 5. Duration: chronic. The problem is stable. It occurs persistently. The client describes the pain as tingling. Symptoms are aggravatedby bending, lifting, lying/rest, sitting, twisting, walking, housework, movement, rising from sitting position, standing on one leg and prolonged positioning. Symptoms are relieved by heat, pain meds/drugs and sitting. Reason For Referral Reason For Referral No Information Plan Of Treatment Date Type Action Status Goal Medication Recon ciliation. Due on due Goal FIT. Due on due Goal OARS. Due on due Goal AST (SGOT). Due on due Goal Order Annual PT. Due on due Goal TECHNICIAN TERMINAL AND REPEATER Paperwork. Due on due Goal SPECIAL NEEDS NANNY Scanned. Due on due Goal Creatinine. Due on due Goal ALT (SGPT). Due on due Goal UDT. Due on due Goal Unhealthy drug u se screening. Due on due Goal PHQ-9. Due on du e Goal Height. Due on d ue Goal FIT-DNA. Due on due Goal Hepatitis C scre ening. Due on due Goal Update Social Hi story. Due on due Goal Lipid panel. Due on due Goal CT-Colonography. Due on due Goal Weight. Due on d ue Goal Zoster vaccine ( 1st). Due on due Goal Tobacco Use. Due on due Goal Review Allergy L ist. Due on due Goal ALT (SGPT). Due on due Goal OARS. Due on due Goal Creatinine. Due on due Goal CT-Colonography. Due on due Goal Unhealthy drug u se screening. Due on due Goal Hepatitis C scre ening. Due on due Goal Review Allergy L ist. Due on due Goal Medication Recon ciliation. Due on due Goal Tobacco Use. Due on due Goal Height. Due on d ue Goal Zoster vaccine ( 1st). Due on due Goal Weight. Due on d ue Goal FIT-DNA. Due on due Goal Update Social Hi story. Due on due Goal PHQ-9. Due on du e Goal Lipid panel. Due on due Goal FIT. Due on due Goal TECHNICIAN TERMINAL AND REPEATER Paperwork. Due on due Goal SPECIAL NEEDS NANNY Scanned. Due on due Goal AST (SGOT). Due on due Goal UDT. Due on due Goal Order Annual PT. Due on due Goal Creatinine. Due on due Goal Medication Recon ciliation. Due on due Goal SPECIAL NEEDS NANNY Scanned. Due on due Goal TECHNICIAN TERMINAL AND REPEATER Paperwork. Due on due Goal AST (SGOT). Due on due Goal ALT (SGPT). Due on due Goal OARS. Due on due Goal UDT. Due on due Goal Order Annual PT. Due on due Goal Update Social Hi story. Due on due Goal Tobacco Use. Due on due Goal Zoster vaccine ( 1st). Due on due Goal FIT. Due on due Goal Unhealthy drug u se screening. Due on due Goal Lipid panel. Due on due Goal CT-Colonography. Due on due Goal Height. Due on d ue Goal Weight. Due on d ue Goal Hepatitis C scre ening. Due on due Goal Review Allergy L ist. Due on due Goal PHQ-9. Due on du e Goal FIT-DNA. Due on due Goal Order Annual PT. Due on due Goal Unhealthy drug u se screening. Due on due Goal SPECIAL NEEDS NANNY Scanned. Due on due Goal ALT (SGPT). Due on due Goal Creatinine. Due on due Goal UDT. Due on due Goal TECHNICIAN TERMINAL AND REPEATER Paperwork. Due on due Goal OARS. Due on due Goal AST (SGOT). Due on due Goal Review Allergy L ist. Due on due Goal Tobacco Use. Due on due Goal Weight. Due on d ue Goal CT-Colonography. Due on due Goal Zoster vaccine ( 1st). Due on due Goal PHQ-9. Due on du e Goal Height. Due on d ue Goal FIT. Due on due Goal Update Social Hi story. Due on due Goal Hepatitis C scre ening. Due on due Goal Lipid panel. Due on due Goal Medication Recon ciliation. Due on due Goal FIT-DNA. Due on due Goal AST (SGOT). Due on due Goal OARS. Due on due Goal UDT. Due on due Goal SPECIAL NEEDS NANNY Scanned. Due on due Goal ALT (SGPT). Due on due Goal Order Annual PT. Due on due Goal Creatinine. Due on due Goal TECHNICIAN TERMINAL AND REPEATER Paperwork. Due on due Goal Tobacco Use. Due on due Goal Review Allergy L ist. Due on due Goal Weight. Due on d ue Goal Update Social Hi story. Due on due Goal Height. Due on d ue Goal CT-Colonography. Due on due Goal Hepatitis C scre ening. Due on due Goal PHQ-9. Due on du e Goal Zoster vaccine ( ). Due on due Goal FIT. Due on due Goal FIT-DNA. Due on due Goal Unhealthy drug u se screening. Due on due Goal Medication Recon ciliation. Due on due Goal Lipid panel. Due on due Goal TECHNICIAN TERMINAL AND REPEATER Paperwork. Due on due Goal Unhealthy drug u se screening. Due on due Goal UDT. Due on due Goal AST (SGOT). Due on due Goal OARS. Due on due Goal Creatinine. Due on due Goal ALT (SGPT). Due on due Goal Order Annual PT. Due on due Goal SPECIAL NEEDS NANNY Scanned. Due on due Goal PHQ-9. Due on du e Goal Hepatitis C scre ening. Due on due Goal Lipid panel. Due on due Goal Zoster vaccine ( ). Due on due Goal FIT-DNA. Due on due Goal Tobacco Use. Due on 022 due Goal Height. Due on d ue Goal Update Social Hi story. Due on due Goal CT-Colonography. Due on due Goal Review Allergy L ist. Due on due Goal FIT. Due on due Goal Weight. Due on d ue Goal Medication Recon ciliation. Due on due Goal Medication Recon ciliation. Due on due Goal Unhealthy drug u se screening. Due on due Goal Weight. Due on d ue Goal FIT. Due on due Goal Review Allergy L ist. Due on due Goal CT-Colonography. Due on due Goal Update Social Hi story. Due on due Goal Height. Due on d ue Goal Tobacco Use. Due on due Goal FIT-DNA. Due on due Goal Zoster vaccine ( 1st). Due on due Goal Lipid panel. Due on due Goal Hepatitis C scre ening. Due on due Goal PHQ-9. Due on du e Goal SPECIAL NEEDS NANNY Scanned. Due on due Goal Order Annual PT. Due on due Goal ALT (SGPT). Due on due Goal Creatinine. Due on due Goal OARS. Due on due Goal AST (SGOT). Due on due Goal UDT. Due on due Goal TECHNICIAN TERMINAL AND REPEATER Paperwork. Due on due Goal Unhealthy drug u se screening. Due on due Goal Height. Due on d ue Goal ALT (SGPT). Due on due Goal SPECIAL NEEDS NANNY Scanned. Due on due Goal UDT. Due on due Goal TECHNICIAN TERMINAL AND REPEATER Paperwork. Due on due Goal Order Annual PT. Due on due Goal OARS. Due on due Goal AST (SGOT). Due on due Goal Creatinine. Due on due Goal FIT-DNA. Due on due Goal Medication Recon ciliation. Due on due Goal Zoster vaccine ( 1st). Due on due Goal PHQ-9. Due on du e Goal Hepatitis C scre ening. Due on due Goal Tobacco Use. Due on 022 due Goal Update Social Hi story. Due on due Goal Lipid panel. Due on due Goal FIT. Due on due Goal Review Allergy L ist. Due on due Goal Weight. Due on d ue Goal CT-Colonography. Due on due Goal FIT-DNA. Due on due Goal Medication Recon ciliation. Due on due Goal SPECIAL NEEDS NANNY Scanned. Due on due Goal Creatinine. Due on due Goal AST (SGOT). Due on due Goal Order Annual PT. Due on due Goal OARS. Due on due Goal ALT (SGPT). Due on due Goal TECHNICIAN TERMINAL AND REPEATER Paperwork. Due on due Goal UDT. Due on due Goal CT-Colonography. Due on due Goal Update Social Hi story. Due on due Goal Zoster vaccine ( 1st). Due on due Goal Unhealthy drug u se screening. Due on due Goal PHQ-9. Due on du e Goal Hepatitis C scre ening. Due on due Goal Height. Due on d ue Goal Tobacco Use. Due on due Goal Review Allergy L ist. Due on due Goal FIT. Due on due Goal Lipid panel. Due on due Goal Weight. Due on d ue Goal AST (SGOT). Due on due Goal Lipid panel. Due on due Goal TECHNICIAN TERMINAL AND REPEATER Paperwork. Due on due Goal Order Annual PT. Due on due Goal OARS. Due on due Goal SPECIAL NEEDS NANNY Scanned. Due on due Goal UDT. Due on due Goal ALT (SGPT). Due on due Goal Creatinine. Due on due Goal Tobacco Use. Due on due Goal Unhealthy drug u se screening. Due on due Goal Zoster vaccine ( 1st). Due on due Goal Update Social Hi story. Due on due Goal FIT. Due on due Goal Weight. Due on d ue Goal FIT-DNA. Due on due Goal Review Allergy L ist. Due on due Goal PHQ-9. Due on du e Goal CT-Colonography. Due on due Goal Medication Recon ciliation. Due on due Goal Height. Due on d ue Goal Hepatitis C scre ening. Due on due Goal Order Annual PT. Due on due Goal Medication Recon ciliation. Due on due Goal TECHNICIAN TERMINAL AND REPEATER Paperwork. Due on due Goal ALT (SGPT). Due on due Goal AST (SGOT). Due on due Goal SPECIAL NEEDS NANNY Scanned. Due on due Goal Creatinine. Due on due Goal OARS. Due on due Goal UDT. Due on due Goal Hepatitis C scre ening. Due on due Goal Review Allergy L ist. Due on due Goal Weight. Due on d ue Goal Update Social Hi story. Due on due Goal FIT. Due on due Goal Lipid panel. Due on 023 due Goal Tobacco Use. Due on 022 due Goal FIT-DNA. Due on due Goal CT-Colonography. Due on due Goal Height. Due on d ue Goal Unhealthy drug u se screening. Due on due Goal PHQ-9. Due on du e Goal Zoster vaccine ( ). Due on due Goal TECHNICIAN TERMINAL AND REPEATER Paperwork. Due on due Goal Review Allergy L ist. Due on due Goal Update Social Hi story. Due on due Goal FIT-DNA. Due on due Goal CT-Colonography. Due on due Goal Height. Due on d ue Goal Zoster vaccine ( ). Due on due Goal Hepatitis C scre ening. Due on due Goal PHQ-9. Due on du e Goal Unhealthy drug u se screening. Due on due Goal ALT (SGPT). Due on due Goal UDT. Due on due Goal AST (SGOT). Due on due Goal Order Annual PT. Due on due Goal SPECIAL NEEDS NANNY Scanned. Due on 023 due Goal Creatinine. Due on due Goal OARS. Due on due Goal Medication Recon ciliation. Due on due Goal Tobacco Use. Due on due Goal Lipid panel. Due on due Goal FIT. Due on due Goal Weight. Due on d ue Goal OARS. Due on due Goal Medication Recon ciliation. Due on due Goal SPECIAL NEEDS NANNY Scanned. Due on due Goal Creatinine. Due on due Goal TECHNICIAN TERMINAL AND REPEATER Paperwork. Due on due Goal ALT (SGPT). Due on due Goal AST (SGOT). Due on due Goal Order Annual PT. Due on due Goal UDT. Due on due Goal FIT-DNA. Due on due Goal Review Allergy L ist. Due on due Goal Tobacco Use. Due on due Goal Update Social Hi story. Due on due Goal Lipid panel. Due on due Goal Unhealthy drug u se screening. Due on due Goal CT-Colonography. Due on due Goal Hepatitis C scre ening. Due on due Goal Height. Due on d ue Goal Weight. Due on d ue Goal PHQ-9. Due on du e Goal Zoster vaccine ( 1st). Due on due Goal FIT. Due on due Goal AST (SGOT). Due on due Goal TECHNICIAN TERMINAL AND REPEATER Paperwork. Due on due Goal Order Annual PT. Due on due Goal Hepatitis C scre ening. Due on due Goal CT-Colonography. Due on due Goal Tobacco Use. Due on due Goal Update Social Hi story. Due on due Goal Unhealthy drug u se screening. Due on due Goal SPECIAL NEEDS NANNY Scanned. Due on due Goal OARS. Due on due Goal UDT. Due on due Goal Creatinine. Due on due Goal ALT (SGPT). Due on due Goal Medication Recon ciliation. Due on due Goal Weight. Due on d ue Goal Height. Due on d ue Goal Review Allergy L ist. Due on due Goal FIT. Due on due Goal PHQ-9. Due on du e Goal Lipid panel. Due on due Goal FIT-DNA. Due on due Goal Zoster vaccine ( ). Due on due Goal Medication Recon ciliation. Due on due Goal Zoster vaccine ( 1st). Due on due Goal TECHNICIAN TERMINAL AND REPEATER Paperwork. Due on due Goal Creatinine. Due on due Goal Order Annual PT. Due on due Goal AST (SGOT). Due on due Goal OARS. Due on due Goal UDT. Due on due Goal SPECIAL NEEDS NANNY Scanned. Due on due Goal ALT (SGPT). Due on due Goal FIT-DNA. Due on due Goal Lipid panel. Due on due Goal FIT. Due on due Goal Update Social Hi story. Due on due Goal Weight. Due on d ue Goal Hepatitis C scre ening. Due on due Goal Height. Due on d ue Goal Tobacco Use. Due on due Goal Unhealthy drug u se screening. Due on due Goal CT-Colonography. Due on due Goal PHQ-9. Due on du e Goal Review Allergy L ist. Due on due Goal AST (SGOT). Due on due Goal Hepatitis C scre ening. Due on due Goal SPECIAL NEEDS NANNY Scanned. Due on due Goal ALT (SGPT). Due on due Goal UDT. Due on due Goal OARS. Due on due Goal Order Annual PT. Due on due Goal Creatinine. Due on due Goal TECHNICIAN TERMINAL AND REPEATER Paperwork. Due on due Goal CT-Colonography. Due on due Goal Zoster vaccine ( 1st). Due on due Goal Lipid panel. Due on due Goal Medication Recon ciliation. Due on due Goal Update Social Hi story. Due on due Goal Unhealthy drug u se screening. Due on due Goal Review Allergy L ist. Due on due Goal Weight. Due on d ue Goal PHQ-9. Due on du e Goal FIT-DNA. Due on due Goal Height. Due on d ue Goal FIT. Due on due Goal Tobacco Use. Due on due Goal Tobacco cessation counseling completed Goal UDT. Due on due Goal FIT. Due on due Goal Order Annual PT. Due on due Goal TECHNICIAN TERMINAL AND REPEATER Paperwork. Due on due Goal OARS. Due on due Goal AST (SGOT). Due on due Goal ALT (SGPT). Due on due Goal Creatinine. Due on due Goal SPECIAL NEEDS NANNY Scanned. Due on due Goal Zoster vaccine ( 1st). Due on due Goal Unhealthy drug u se screening. Due on due Goal Review Allergy L ist. Due on due Goal Hepatitis C scre ening. Due on due Goal Weight. Due on d ue Goal Height. Due on d ue Goal PHQ-9. Due on du e Goal Lipid panel. Due on due Goal FIT-DNA. Due on due Goal CT-Colonography. Due on due Goal Medication Recon ciliation. Due on due Goal Update Social Hi story. Due on due Goal Tobacco Use. Due on due Goal OARS. Due on due Goal TECHNICIAN TERMINAL AND REPEATER Paperwork. Due on due Goal Creatinine. Due on due Goal ALT (SGPT). Due on due Goal AST (SGOT). Due on due Goal Order Annual PT. Due on due Goal UDT. Due on due Goal SPECIAL NEEDS NANNY Scanned. Due on due Goal FIT-DNA. Due on due Goal Unhealthy drug u se screening. Due on due Goal Medication Recon ciliation. Due on due Goal Review Allergy L ist. Due on due Goal Tobacco Use. Due on due Goal PHQ-9. Due on du e Goal CT-Colonography. Due on due Goal Height. Due on d ue Goal Zoster vaccine ( 1st). Due on due Goal FIT. Due on due Goal Lipid panel. Due on due Goal Weight. Due on d ue Goal Update Social Hi story. Due on due Goal Hepatitis C scre ening. Due on due Goal UDT. Due on due Goal ALT (SGPT). Due on due Goal OARS. Due on due Goal AST (SGOT). Due on due Goal TECHNICIAN TERMINAL AND REPEATER Paperwork. Due on due Goal Order Annual PT. Due on due Goal SPECIAL NEEDS NANNY Scanned. Due on due Goal Creatinine. Due on due Goal Review Allergy L ist. Due on due Goal Unhealthy drug u se screening. Due on due Goal Height. Due on d ue Goal Update Social Hi story. Due on due Goal CT-Colonography. Due on due Goal Tobacco Use. Due on due Goal Zoster vaccine ( 1st). Due on due Goal Lipid panel. Due on 023 due Goal FIT. Due on due Goal Weight. Due on d ue Goal PHQ-9. Due on du e Goal Hepatitis C scre ening. Due on due Goal FIT-DNA. Due on due Goal Medication Recon ciliation. Due on due Goal OARS. Due on due Goal UDT. Due on due Goal TECHNICIAN TERMINAL AND REPEATER Paperwork. Due on due Goal AST (SGOT). Due on due Goal ALT (SGPT). Due on due Goal Zoster vaccine ( 1st). Due on due Goal Order Annual PT. Due on due Goal SPECIAL NEEDS NANNY Scanned. Due on due Goal Creatinine. Due on due Goal PHQ-9. Due on du e Goal FIT. Due on due Goal Hepatitis C scre ening. Due on due Goal Weight. Due on d ue Goal Unhealthy drug u se screening. Due on due Goal Height. Due on d ue Goal Lipid panel. Due on 023 due Goal FIT-DNA. Due on due Goal Tobacco Use. Due on due Goal CT-Colonography. Due on due Goal Medication Recon ciliation. Due on due Goal Update Social Hi story. Due on due Goal Review Allergy L ist. Due on due Goal SPECIAL NEEDS NANNY Scanned. Due on due Goal Tobacco Use. Due on due Goal TECHNICIAN TERMINAL AND REPEATER Paperwork. Due on due Goal Hepatitis C scre ening. Due on due Goal Update Social [employer] story. Due on due Goal Lipid panel. Due on due Goal Medication Recon ciliation. Due on due Goal FIT. Due on due Goal CT-Colonography. Due on due Goal Weight. Due on d ue Goal Unhealthy drug u se screening. Due on due Goal Zoster vaccine ( 1st). Due on due Goal Height. Due on d ue Goal PHQ-9. Due on du e Goal FIT-DNA. Due on due Goal Review Allergy L ist. Due on due Goal ALT (SGPT). Due on due Goal AST (SGOT). Due on due Goal UDT. Due on due Goal OARS. Due on due Goal Order Annual PT. Due on due Goal Creatinine. Due on due Goal ALT (SGPT). Due on due Goal Order Annual PT. Due on due Goal SPECIAL NEEDS NANNY Scanned. Due on due Goal Creatinine. Due on due Goal TECHNICIAN TERMINAL AND REPEATER Paperwork. Due on due Goal PHQ-9. Due on du e Goal Review Allergy L ist. Due on due Goal Tobacco Use. Due on due Goal FIT-DNA. Due on due Goal FIT. Due on due Goal Zoster vaccine ( 1st). Due on due Goal Unhealthy drug u se screening. Due on due Goal Medication Recon ciliation. Due on due Goal CT-Colonography. Due on due Goal Weight. Due on d ue Goal Lipid panel. Due on due Goal Update Social Hi story. Due on due Goal Hepatitis C scre ening. Due on due Goal Height. Due on d ue Goal UDT. Due on due Goal OARS. Due on due Goal AST (SGOT). Due on due Goal ALT (SGPT). Due on due Goal SPECIAL NEEDS NANNY Scanned. Due on due Goal OARS. Due on due Goal TECHNICIAN TERMINAL AND REPEATER Paperwork. Due on due Goal AST (SGOT). Due on due Goal UDT. Due on due Goal Creatinine. Due on due Goal Order Annual PT. Due on due Goal FIT. Due on due Goal Zoster vaccine ( ). Due on due Goal Update Social Hi story. Due on due Goal Hepatitis C scre ening. Due on due Goal Tobacco Use. Due on due Goal Review Allergy L ist. Due on due Goal PHQ-9. Due on du e Goal Medication Recon ciliation. Due on due Goal CT-Colonography. Due on due Goal Height. Due on d ue Goal Lipid panel. Due on due Goal Weight. Due on d ue Goal Unhealthy drug u se screening. Due on due Goal FIT-DNA. Due on due Goal TECHNICIAN TERMINAL AND REPEATER Paperwork. Due on due Goal SPECIAL NEEDS NANNY Scanned. Due on due Goal Creatinine. Due on due Goal AST (SGOT). Due on due Goal ALT (SGPT). Due on due Goal Height. Due on d ue Goal Lipid panel. Due on due Goal Tobacco Use. Due on due Goal Hepatitis C scre ening. Due on due Goal Medication Recon ciliation. Due on due Goal Unhealthy drug u se screening. Due on due Goal Zoster vaccine ( ). Due on due Goal FIT-DNA. Due on due Goal FIT. Due on due Goal PHQ-9. Due on du e Goal Weight. Due on d ue Goal Update Social Hi story. Due on due Goal Review Allergy L ist. Due on due Goal CT-Colonography. Due on due Goal Order Annual PT. Due on due Goal UDT. Due on due Goal OARS. Due on due Goal Height. Due on d ue Goal PHQ-9. Due on du e Goal SPECIAL NEEDS NANNY Scanned. Due on due Goal TECHNICIAN TERMINAL AND REPEATER Paperwork. Due on due Goal Order Annual PT. Due on due Goal UDT. Due on due Goal Creatinine. Due on due Goal OARS. Due on due Goal ALT (SGPT). Due on due Goal AST (SGOT). Due on due Goal Update Social Hi story. Due on due Goal CT-Colonography. Due on due Goal Tobacco Use. Due on due Goal Zoster vaccine ( 1st). Due on due Goal FIT. Due on due Goal Lipid panel. Due on due Goal Unhealthy drug u se screening.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 injection but is open to either consulting with an surgeon or starting PT.Reports current medication provides 95% pain relief and allows for increased functionality. Continues to utilize MSER 15mg and Tramadol 50mg with significant benefit. Expressed little interest in starting opioid patches. Denies OIC, which is managed with Colace, or other side effects from current medication regimen. No other concerns today. low back pain Severity level i s 7. Duration: chronic. The problem is fluctuating. It occurs persistently. Symptoms are relieved by pain meds/drugs. Comments: Velasquez is a 62 y/o male who presents for follow up and medication refill in the setting of chronic low back pain (R>L) with radiation into the posterior BLE d/t PAD. Pain has been improving this month. Denies any new symptoms or changes. Willing to consult with a spine surgeon after following up with his vascular specialist.Reports current medication provides 95% pain relief and allows for increased functionality such as walking and going fishing. Rates his pain as 9/10 without medications and 8/10 with medications. Continues to utilize MSER 15mg and Tramadol 50mg with significant benefit. Denies OIC, which is managed with Colace, or other side effects from current medication regimen. No other concerns today. low back pain Severity level i s 8. Duration: chronic. The problem is improving. It occurs persistently. The client describes the pain as an ache. Symptoms are aggravated by bending, lifting, running, standing, walking, housework, stairs and movement. Symptoms are relieved by heat, lying down and pain meds/drugs. Comments: Velasquez is a 62 y/o male who presents for follow up and medication refill in the setting of chronic low back pain (R>L) with radiation into the posterior BLE d/t PAD. Pain has been improving this month. Notes he has an upcoming appointment with a specialist for the balloon in his leg but is unsure about the exact date.Reports current medication provides 95% pain relief and allows for increased functionality such as walking and going fishing. Rates his pain as 9/10 without medications and 5/10 with medications. Continues to utilize MSER 15mg and Tramadol 50mg with significant benefit. Denies OIC, which is managed with Colace, or other side effects from current medication regimen. No other concerns today. low back pain Severity level i s 5. Duration: chronic. The problem is improving. It occurs persistently. The client describes the pain as an ache. Symptoms are aggravated by bending, lifting, running, walking, housework, movement, stairs and prolonged positioning. Symptoms are relieved by heat, lying down, pain meds/drugs, rest and sitting. Comments: Velasquez is a 62 y/o male who presents for follow up and medication refill in the setting of chronic low back pain (R>L) with radiation into the posterior BLE d/t PAD. Pain has been stable this month. Denies any new symptoms or changes. BL hip pain (R>L) has been the most bothersome. Notes the pain typically radiates into the groin which makes movement painful. Inquires about the results of his most recent hip XR. Expressed hesitance with receiving cortisone injections for the hips as he had increased pain following his LESI. Reports current medication provides 95% pain relief and allows for increased functionality. Continues to utilize MSER 15mg and Tramadol 50mg with significant benefit. Notes he left his medications in the medical ride and is unsure if he can retrieve them again. Denies OIC, which is managed with Colace, or other side effects from current medication regimen. No other concerns today. low back pain Severity level i s 9. Duration: chronic. The problem is stable. It occurs persistently. Symptoms are aggravated by bending, lifting, running, standing, walking, movement, stairs and housework. Symptoms are relieved by heat, lying down, pain meds/drugs, rest and sitting. Comments: Velasquez is a 62 y/o male who presents for follow up and medication refill in the setting of chronic low back pain (R>L) with radiation into the posterior BLE d/t PAD. Pain has been stable this month. Denies any new symptoms or changes. Have obtained imaging at [facility].Reports current medication provides 85% pain relief and allows for increased functionality. Rates his pain as 10/10 without medications and 8/10 with medications. Continues to utilize MSER 15mg and Tramadol 50mg with significant benefit. Denies OIC, which is managed with Colace, or other side effects from current medication regimen. No other concerns today. low back pain Severity level i s 8. Duration: chronic. The problem is stable. It occurs persistently. Symptoms are aggravated by bending, lifting, running, sitting, standing, walking and movement. Symptoms are relieved by heat, lying down, pain meds/drugs and sitting. low back pain Severity level i s 9. Duration: chronic. The problem is stable. Symptoms are aggravated by bending, running, sitting, standing, twisting, walking, movement, housework and stairs. Symptoms are relieved by heat, lying down and sitting. Comments: Velasquez is a 61 y/o male who presents for follow up and medication refill in the setting of chronic low back pain (R>L) with posterior BLE pain d/t PAD. Pain has been stable this month. R sided low back pain with radiation into the groin fluctuates with positions. Believes the pain is from the TFESI on 07/28/22. Plans to obtain imaging soon. Expressed little interest in consulting with a surgeon at this time.States he recently received his TENS unit, but has yet to use it due to difficulties placing it on his back.Reports current medication regimen provides moderate relief and allows for increased functionality. Continue to utilize MSER 15mg and Tramadol 50mg with significant benefit. Presents 4 days short with MSER and tramadol today. Denies OIC, which is managed with Colace, or other side effects from current medication regimen. No other concerns today. low back pain Severity level i s 4. Duration: chronic. The problem is worsening. It occurs persistently. The client describes the pain as an ache. Symptoms are aggravated by bending, lifting, running, sitting, standing, twisting, walking, housework, movement, stairs and prolonged positioning. Symptoms are relieved by pain meds/drugs and rest. Comments: Velasquez is a 61 y/o male who presents for follow up and medication refill in the setting of chronic low back pain (R>L) with posterior BLE pain d/t PAD. Pain has been worse this month. R sided low back pain with radiation into the groin have been the most bothersome. Notes difficulty going from a sitting position to a standing position. Believes the pain is from the TFESI on 07/28/22. Plans to obtain imaging soon. Expressed little interest in consulting with a surgeon at this time.Reports current medication regimen provides 70% relief and allows for increased functionality. Rates his pain as 9/10 without medications and 4/10 with medications. Continue to utilize MSER 15mg and Tramadol 50mg with significant benefit. Denies OIC, which is managed with Colace, or other side effects from current medication regimen. No other concerns today. low back pain Severity level i s 8. Duration: chronic. The problem is worsening. It occurs persistently. Symptoms are relieved by pain meds/drugs. Comments: Velasquez is a 61 y/o male who presents for follow up and medication refill in the setting of chronic low back pain with posterior BLE pain d/t PAD (R>L). Pain has been worse this month. S/p BL L5-S1 TFESI on 07/28/[address] Shrestha provided minimal relief. Notes additional pain in the R buttocks with radiation down the lateral aspect of the R thigh. Endorses pain in the groin with difficulty going to the bathroom. He states he needs to put more weight on the L side when he sits down in order to take pressure off the R buttocks. Inquires if he should obtain imaging. Did not express interest in taking oral steroids. Reports current medication regimen provides 90% relief and allows for increased functionality. Rates his pain as 10/10 without medications and 8/10 with medications. Continue to utilize MSER 15mg and Tramadol 50mg with significant benefit. Denies OIC, which is managed with Colace, or other side effects from current medication regimen. No other concerns today. Comments: Velasquez is a 61 y/o male who presents for follow up and medication refill in the setting of chronic low back pain with posterior BLE pain d/t PAD (R>L). Pain has been worse this month. S/p BL L5-S1 TFESI on 07/28/[address] Shrestha provided minimal relief. He states he has been experiencing pain in the R side of the low back with radiation into the R upper thigh. Notes his R leg feels jiggly. Standing and walking aggravates the pain. Also reports difficulty sleeping which causes him to toss and turn in order to feel comfortable. Denies any fevers but does endorses intermittent chills.Reports current medication regimen provides 90% relief and allows for increased functionality. Rates his pain as 10/10 without medications and 8/10 with medications. Continue to utilize MSER 15mg and Tramadol 50mg with significant benefit. Denies OIC, which is managed with Colace, or other side effects from current medication regimen. No other concerns today. low back pain Severity level i s 8. Duration: chronic. The problem is worsening. It occurs persistently. The client describes the pain as an ache. Symptoms are aggravated by bending, lifting, running, standing, twisting, walking, housework, movement, stairs and prolonged positioning. Symptoms are relieved by lying down, pain meds/drugs, sitting and changing positions. Comments: Velasquez is a 61 y/o male who presents for follow up and medication refill in the setting of chronic low back pain with posterior BLE pain d/t PAD (R>L). Pain has been stable this month. Denies any new symptoms or changes.S/p PAD surgery on 04/06/22. He states he has been experiencing pain at the surgical area. Continues to endorse pain radiating down the R leg. Notes it feels like there is a balloon in his leg. Has an upcoming appointment for the BL L5-S1 TFESI scheduled on 07/28/[address] Shrestha. Understands he needs to hold off on Aspirin 81mg and his opioid medications. Reports current medication regimen provides 95% relief and allows for increased functionality. Continue to utilize MSER 15mg and Tramadol 50mg with significant benefit. Denies OIC, which is managed with Colace, or other side effects from current medication regimen. No other concerns today. low back pain Severity level i s 8. Duration: chronic. The problem is stable. It occurs persistently. The client describes the pain as an ache, burning, sharp and tingling. Symptoms are aggravated by bending, lifting, running, sitting, standing, twisting, walking, housework, movement, stairs and prolonged positioning. Symptoms are relieved by pain meds/drugs and rest. low back pain Severity level i s 8. Duration: chronic. The problem is fluctuating. It occurs persistently. Location of pain is right leg and right hand. The client describes the pain as burning. Symptoms are aggravated by bending, lifting, running, standing, twisting, walking, stairs and housework. Symptoms are relieved by heat, lying down, pain meds/drugs and rest. Comments: Velasquez is a 61 y/o male who presents for follow up and medication refill in the setting of chronic low back pain with posterior BLE pain d/t PAD (R>L). Pain has been fluctuating this month.S/p PAD surgery on 04/06/22. He states he has been experiencing pain at the surgical area. . Continues to endorse pain radiating down the R leg. Notes it feels like there is a balloon" in his leg. Has finished with the blood thinners and is fine to move forward with an JOHN for the low back. Expressed interest in trying the JOHN , he is off Plavix.Patient states his R hand have been the most bothersome this month. Notes there is a burning sensation in the hand and has to utilize a hand brace in order to help further relieve the pain. He reports the opioid medications help with the pain but does not help enough. Reports current medication regimen provides 96% relief and allows for increased functionality. Continue to find benefit in utilizing MSER 15mg and Tramadol 50mg. Denies OIC, which is managed with Colace, or other side effects from current medication regimen. No other concerns today. Comments: Velasquez is a 61 y/o male who presents for follow up and medication refill in the setting of chronic low back pain with posterior BLE pain d/t PAD (R>L). Pain has been worse this month.S/p PAD surgery on 04/06/22. Continues to endorse a swollen bump on the side of his R thigh which contributes to his ongoing pain. As there is a possibly the bump might be d/t a blood clot, he will hold off on moving forward with an JOHN. He states he is still currently on blood thinners. Will plan to follow up with his concrete puddler on 05/26/22 for the persistent chest pain.Patient states his R hand have been the most bothersome this month. Notes there is a burning sensation in the hand and has to utilize a hand brace in order to help further relieve the pain. He reports the opioid medications help with the pain but does not help enough. Reports current medication regimen provides 95% relief and allows for increased functionality. States he takes Gabapentin 3x/day. Continue to find benefit in utilizing MSER 15mg and Tramadol 50mg. Denies OIC or other side effects from current medication regimen. No other concerns today. low back pain Severity level i s 5. Duration: chronic. The problem is worsening. It occurs persistently. Location of pain is lower back, thighs and left hand. The client describes the pain as an ache, burning, sharp and tingling. Symptoms are aggravated by bending, lifting, standing, walking and housework. Symptoms are relieved by heat, lying down, pain meds/drugs and rest. low back pain Severity level i s 8. Duration: chronic. The problem is fluctuating. It occurs persistently. Location of pain is lower back. The client describes the pain as an ache, burning, sharp and tingling. Symptoms are aggravated by bending, lifting, running, sitting, standing, twisting, walking, housework, movement, stairs and prolonged positioning. Symptoms are relieved by lying down, pain meds/drugs and rest. Comments: Velasquez is a 61 y/o male who presents for follow up and medication refill in the setting of chronic low back pain with posterior BLE pain d/t PAD (R>L). Pain has been worse this month.S/p PAD surgery on 04/06/22. Patient continues to recover from the surgery. He states he recently noticed a swollen bump on the side of his R thigh and is unsure if it is a blood clot or not. Will consider applying heat to the inflamed area. Despite expressing interested in receiving an JOHN, he was advised not to move forward with it since he is currently on blood thinners. He also reports being in the hospital yesterday d/t chest pain and was told it was not a heart problem. Chest pain continues to persist and he plans to follow up with his concrete puddler on 05/26/22. Reports current medication regimen provides moderate relief and allows for increased functionality. Denies OIC or other side effects from current medication regimen. No other concerns today. low back pain Severity level i s moderate. Duration: chronic. The problem is fluctuating. It occurs persistently. Location of pain is lower back and legs. The client describes the pain as an ache and burning. Symptoms are aggravated by changing positions and walking. Symptoms are relieved by pain meds/drugs and rest. Comments: Velasquez is a 61 y/o male who presents for follow up and medication refill in the setting of chronic low back pain with posterior BLE pain d/t PAD (R>L). Pain has been worse this month He states he will have a PAD surgery rescheduled to 04/06/22. He still expressed interest in receiving an JOHN after his surgery. JHON will depend on whether pt is on blood thinners or notHe reports he has recently found stable housing in [place].Reports current medication regimen provides moderate relief and allows for increased functionality. . Denies OIC or other side effects from current medication regimen. No other concerns today.Patient presents with no medications to count - he is followed up after due date low back pain Severity level i s 6. Duration: chronic. The problem is stable. It occurs persistently. Location of pain is lower back. The client describes the pain as an ache, burning and sharp. Symptoms are aggravated by bending, lifting, standing, twisting, walking, housework, movement and prolonged positioning. Symptoms are relieved by massage, pain meds/drugs and rest. Comments: Velasquez is a 61 y/o male who presents for follow up and medication refill in the setting of chronic low back pain with posterior BLE pain d/t PAD (R>L). Pain has been stable this month. He states he will have a PAD surgery on 03/02/22. He still expressed interest in receiving an EPI after his surgery. Will discussed more at next OV. He reports he has recently found stable housing in [place]. He states he is currently sleeping on the floor as he has yet to purchase any furniture. Reports current medication regimen provides moderate relief and allows for increased functionality. He was previously on Amoxicillin 500mg 3x/day and recently finished. He states he did try recreational cannabis during a recent celebration. Denies OIC or other side effects from current medication regimen. No other concerns today. low back pain Duration: chroni c. The problem is worsening. It occurs persistently. Location of pain is lower back. The client describes the pain as an ache and sharp. Symptoms are aggravated by lifting, standing and walking. Symptoms are relieved by pain meds/drugs, physical therapy and rest. Comments: Velasquez is a 61 y/o male, who presents for follow up and medication refill in the setting of chronic low back pain with posterior BLE pain d/t PAD (R>L). He states his pain is worse this month d/t increased activity and stress. He states he does not feel safe in the residential where he is currently staying as he is worried about being robbed. He notes he sometimes sleeps in his car, at [facility] in [place] or [facility].Patient presents without meds to count, d/o tomorrow 01/26/22. He notes that his back has been flaring up and the meds are the only thing that helps. Medication provides 70% relief and allows for increased functionality. Denies side effects from current medication regimen. No other concerns today. low back pain Severity level i s 8. Duration: chronic. The problem is worsening. The client describes the pain as burning. Symptoms are aggravated by ascending stairs, bending, descending stairs, lifting, running, sitting, standing, walking and movement. Symptoms are relieved by heat and pain meds/drugs. Comments: Velasquez is a 61 y/o male, who presents for follow up and medication refill in the setting of chronic low back pain with posterior BLE pain d/t PAD (R>L). He states his pain is worse this month d/t increased activity and stress. 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 He reports a hx of 2 injections in his back 8-9 years ago and notes that he had increased pain so he is hesitant to pursue further injections. He states he is also not interested in a surgical referral or oral steroids. He states he does not feel safe in the residential where he is currently staying as he is worried about being robbed. He notes he sometimes sleeps in his car, at [facility] in [place] or [facility]. He notes he is currently on a waiting list for housing and the [facility] is helping him find a hotel. He notes he is also in six figure debt regarding child support.His right hand pain continues to persist and is worse this month d/t his new job and increased stress. Medication provides 70% relief and allows for increased functionality. Denies side effects from current medication regimen. No other concerns today. low back pain Severity level i s 5. Duration: chronic. The problem is fluctuating. It occurs persistently. Location of pain is lower back. Pain is radiated to the right posterior leg. The client describes the pain as an ache and burning. Symptoms are aggravated by ascending stairs, bending, lifting, pushing, standing and walking. Symptoms are relieved by heat, ice, massage, pain meds/drugs, stretching and rest. Comments: Velasquez presents for a follow up and medication refill. Patient c/o chronic low back pain with posterior BLE pain d/t PAD. Pain has been stable since last visit.His right hand pain continues to persist. Medication provides 70% relief and allows for increased functionality. Denies side effects from current medication regimen. No other concerns today. Of note, patient recently lost his apartment d/t the loss of his job. States he has been staying with a couple. He also has an interview at [employer] today and notes they are willing to accommodate for his chronic pain. He is awaiting approval of disability. low back pain (comments) Velasquez is a 60 y/o male, here for follow up and medication refill in the setting of chronic low back and R hand pain. He also reports leg pain in the setting of PAD, and is following up with vascular specialist. He was last seen 08/02/21. He states his 43 y/o nephew a week ago and he just returned from [place] for the .He reports he lost his job 06/03/21 and has no insurance currently. He states he is pursuing legal action to try to get his job back. He reports he is limited in his job options as he has PAD and many jobs require lots of bending and lifting which aggravates his back pain. He states he is currently pursuing disability and SSI and states he may be sending some ppw to the clinic. He reports that he is currently having trouble paying his medical bills as he is paying for all his visits and services out of pocket. Reports current medication regimen provides 70% pain relief and allows for increased functionality. He notes SE of forgetfulness and will talk to his PCP next month 10/2021 about this. He reports he smoked some marijuana while he was in [place]. Denies side effects from current medication regimen.No other concerns today. low back pain Severity level i s 8. Duration: chronic. The problem is stable. It occurs intermittently. The patient describes the pain as an ache. Symptoms are aggravated by lifting, running, standing and walking. Symptoms are relieved by heat, pain meds/drugs and sitting. low back pain (comments) Velasquez is a 60 y/o male, here for follow up and medication refill in the setting of chronic low back and R hand pain. He also reports leg pain in the setting of PAD, and is following up with vascular specialist. He states his pain is improving this month. He states he lost his job 06/03/21 and has no insurance currently. He states he is signing up with insurance through the state, and it should all be settled next month. He reports that he is currently having trouble paying his medical bills as he is paying for all his visits and services out of pocket. Reports current medication regimen provides 70% pain relief and allows for increased functionality. Denies side effects from current medication regimen.No other concerns today. low back pain Severity level i s 6. Duration: chronic. The problem is improving. It occurs intermittently. The patient describes the pain as an ache. Symptoms are aggravated by lifting, running, walking, movement and prolonged positioning. Symptoms are relieved by lying down, pain meds/drugs, rest and sitting. low back pain (comments) Velasquez is a 60 y/o male, here for follow up and medication refill in the setting of chronic low back and R hand pain. He also reports leg pain in the setting of PAD, following up with vascular specialist. He states his pain is stable this month. He reports that he is currently having trouble paying his medical bills as his insurance is not paying for these visits and he is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
[2024-01-20 07:24] LABS: Potassium* 4.9 mmol/L (3.6-5.1); Sodium* 140 mmol/L (135-149)
--- OUTSIDE RECORDS SUMMARY | 2024-01-20 07:24 | XMS_ITS | Continuity of Care Document ---
Author Organization [facility] enter Address [address] [place] [phone] Phone Care Team Providers Care Income Tax Adjuster Name Role Phone [facility] Unavailable Unava ilable Procedures Procedure Date INJ FORAMEN EPIDURAL L/S Advance Directives Directive Yes / No Effective Date File Name No Information Encounters Encounter Description Practice Location Reason(s) For Visit Diagnoses Date Provider Providers Copied on Encounter [facility], [address] [place] [address], [id number], tel:[phone] [facility] No Information [facility]. [address] [place] [address], [id number], . tel:[phone] Referring Provider: Kellen Shrestha, [address] [place], [address] . tel:[phone] Family History Family Member Type Diagnosis Age At Onset No Information Payers Payer name Insurance type Covered green party ID Authoriza tion(s) No Information Social [...]
--- OUTSIDE RECORDS SUMMARY | 2024-01-20 07:24 | XMS_ITS | Continuity of Care Document ---
Author Organization [facility] Address [address] [place] [address] Phone Care Team Providers Care Motor Vehicles Supervisor Name Role Phone Dante ASAFSandy Unavailable Unavailable [...] tx Foll-up eval q3mo opiod tx Drug Urine Toxology With Chromatography Drug test def 8-14 classes Foll-up eval q3mo opiod tx OFFICE/OUTPATIENT VISIT, EST Foll-up eval q3mo opiod tx OFFICE/OUTPATIENT VISIT, EST Foll-up eval q3mo opiod tx OFFICE/OUTPATIENT VISIT, EST Foll-up eval q3mo opiod tx OFFICE/OUTPATIENT VISIT, EST Foll-up eval q3mo opiod tx OFFICE/OUTPATIENT VISIT, EST ROUTINE BLOOD DRAW Drug Urine Toxology With Chromatography Drug test def 1-7 classes DAST 15-30 MIN OFFICE/OUTPATIENT VISIT, NEW Results Test Name Date and Time Measure Units Reference Range Abnormal Flag Status Comments Panel Description: URINE DRUG SCREEN Preliminar y Image UDT 1 AMPHETAMINE 01:46:00 -85 (Negativ e) ng/mL 0 Preliminary Performed by:[facility] (1) BARBITURATES 01:46:00 -89 (Negativ e) ng/mL 0 Preliminary Performed by:[facility] (1) COCAINE 01:46:00 -96 (Negativ e) ng/mL 0 Preliminary Performed by:[facility] (1) METHADONE 01:46:00 -101 (Negativ e) ng/mL 0 Preliminary Performed by:[facility] (1) OPIATES 01:46:00 390 (Positiv e) ng/mL 0 A Preliminary Performed by:[facility] (1) BENZODIAZEPINES 01:46:00 -103 (Negativ e) ng/mL 0 Preliminary Performed by:[facility] (1) PHENCYCLIDINE - PCP 01:47:00 -94.00 (Negativ e) ng/mL 0.00 Preliminary Performed by:[facility] (1) CANNABINOIDS - THC - MARIJUANA 01:47:00 97 (Positiv e) ng/mL 0 A Preliminary Performed by:[facility] (1) ECSTASY - MDMA 01:47:00 -79 (Negativ e) ng/mL 0 Preliminary Performed by:[facility] (1) OXYCODONE 01:47:00 -103 (Negativ e) ng/mL 0 Preliminary Performed by:[facility] (1) ETHYL ALCOHOL 01:47:00 1 (Negativ e) mg/dL 100 Preliminary Performed by:[facility] (1) URINE SPECIFIC GRAVITY 01:47:00 1.013 (Accepta ble) 1.003 - 1.035 Preliminary Performed by:[facility] (1) URINE PH 01:47:00 5.4 (Accepta ble) 4.4 - 9.0 Preliminary Performed by:[facility] (1) URINE CREATININE 01:47:00 166 (Accepta ble) mg/dL 20 - 400 Preliminary Performed by:[facility] (1) Panel Description: Full Confirmation Panel Renee khan Alprazolam 12:19:00 < 20 (CONSIST ENT) ng/mL 20.0 Final Performed by:[facility] (1) 1-Lqkrd-Uzjxbwrlux 12:19:00 < 40 (CONSIST ENT) ng/mL 40.0 Final Performed by:[facility] (1) Nordiazepam 12:19:00 < 20 (CONSIST ENT) ng/mL 20.0 Final Performed by:[facility] (1) Temazepam 12:19:00 < 20 (CONSIST ENT) ng/mL 20.0 Final Performed by:[facility] (1) Lorazepam 12:19:00 < 20 (CONSIST ENT) ng/ml 20.0 Final Performed by:[facility] (1) Amphetamine 12:19:00 < 50 (CONSIST ENT) ng/mL 50.0 Final Performed by:[facility] (1) Methamphetamine 12:19:00 < 50 (CONSIST ENT) ng/mL 50.0 Final Performed by:[facility] (1) Methylphenidate 12:19:00 < 40 (CONSIST ENT) ng/mL 40.0 Final Performed by:[facility] (1) MDMA 12:19:00 < 50 (CONSIST ENT) ng/mL 50.0 Final Performed by:[facility] (1) Buprenorphine 12:19:00 < 10 (CONSIST ENT) ng/mL 10.0 Final Performed by:[facility] (1) Norbuprenorphine 12:19:00 < 40 (CONSIST ENT) ng/mL 40.0 Final Performed by:[facility] (1) Naloxone 12:19:00 < 20 (CONSIST ENT) ng/mL 20.0 Final Performed by:[facility] (1) Propoxyphene 12:19:00 < 20 (CONSIST ENT) ng/mL 20.0 Final Performed by:[facility] (1) EDDP 12:19:00 < 20 (CONSIST ENT) ng/mL 20.0 Final Performed by:[facility] (1) Carisoprodol 12:19:00 < 50 (CONSIST ENT) ng/mL 50.0 Final Performed by:[facility] (1) Meprobamate 12:19:00 < 50 (CONSIST ENT) ng/mL 50.0 Final Performed by:[facility] (1) Zolpidem 12:19:00 < 20 (CONSIST ENT) ng/mL 20.0 Final Performed by:[facility] (1) Codeine 12:19:00 < 50 (CONSIST ENT) ng/mL 50.0 Final Performed by:[facility] (1) Morphine 12:19:00 > 800 (CONSIST ENT) ng/mL 20.0 Final Performed by:[facility] (1) Hydrocodone 12:19:00 222.6 (CONSIST ENT) ng/mL 20.0 Final Performed by:[facility] (1) Hydromorphone 12:19:00 463.8 (CONSIST ENT) ng/mL 20.0 Final Performed by:[facility] (1) Oxycodone 12:19:00 < 50 (CONSIST ENT) ng/mL 50.0 Final Performed by:[facility] (1) Oxymorphone 12:19:00 < 20 (CONSIST ENT) ng/mL 20.0 Final Performed by:[facility] (1) Thebaine 12:19:00 < 10 (CONSIST ENT) ng/mL 10.0 Final Performed by:[facility] (1) Norfentanyl 12:19:00 < 20 (CONSIST ENT) ng/mL 20.0 Final Performed by:[facility] (1) 6-Acetyl Morphine 12:19:00 < 20 (CONSIST ENT) ng/mL 20.0 Final Performed by:[facility] (1) Phencyclidine 12:19:00 < 20 (CONSIST ENT) ng/mL 20.0 Final Performed by:[facility] (1) Ketamine 12:19:00 < 40 (CONSIST ENT) ng/mL 40.0 Final Performed by:[facility] (1) Benzoylecgonine(Co c Met) 12:19:00 < 10 (CONSIST ENT) ng/ml 20.0 Final Performed by:[facility] (1) Nortriptyline 12:19:00 < 50 (CONSIST ENT) ng/mL 50.0 Final Performed by:[facility] (1) Amtriptyline 12:19:00 < 50 (CONSIST ENT) ng/mL 50.0 Final Performed by:[facility] (1) Fentanyl 12:19:00 < 10 (CONSIST ENT) ng/mL 10.0 Final Performed by:[facility] (1) Norfentanyl 12:19:00 < 20 (CONSIST ENT) ng/mL 20.0 Final Performed by:[facility] (1) LSD 12:19:00 < 10 (CONSIST ENT) ng/ml 10.0 Final Performed by:[facility] (1) O Desmethyl Cis Tramadol 12:19:00 < 50 (CONSIST ENT) ng/ml 50.0 Final Performed by:[facility] (1) Zolpidem 12:19:00 < 20 (CONSIST ENT) ng/mL 20.0 Final Performed by:[facility] (1) Tapentadol 12:19:00 < 40 (CONSIST ENT) ng/mL 40.0 Final Performed by:[facility] (1) Pregabalin 12:19:00 < 50 (CONSIST ENT) ng/mL 50.0 Final Performed by:[facility] (1) Panel Description: URINE DRUG SCREEN Final Image UDT 2 AMPHETAMINE 12:19:00 -85 (Negativ e) ng/mL 0 Final Performed by:[facility] (1) BARBITURATES 12:19:00 -89 (Negativ e) ng/mL 0 Final Performed by:[facility] (1) COCAINE 12:19:00 -96 (Negativ e) ng/mL 0 Final Performed by:[facility] (1) METHADONE 12:19:00 -101 (Negativ e) ng/mL 0 Final Performed by:[facility] (1) OPIATES 12:19:00 390 (Positiv e) ng/mL 0 A Final Performed by:[facility] (1) BENZODIAZEPINES 12:19:00 -103 (Negativ e) ng/mL 0 Final Performed by:[facility] (1) PHENCYCLIDINE - PCP 12:19:00 -94.00 (Negativ e) ng/mL 0.00 Final Performed by:[facility] (1) CANNABINOIDS - THC - [place] 12:19:00 97 (Positiv e) ng/mL 0 A Final Performed by:[facility] (1) ECSTASY - MDMA 12:19:00 -79 (Negativ e) ng/mL 0 Final Performed by:[facility] (1) OXYCODONE 12:19:00 -103 (Negativ e) ng/mL 0 Final Performed by:[facility] (1) ETHYL ALCOHOL 12:19:00 1 (Negativ e) mg/dL 100 Final Performed by:[facility] (1) URINE SPECIFIC GRAVITY 12:19:00 1.013 (Accepta ble) 1.003 - 1.035 Final Performed by:[facility] (1) URINE PH 12:19:00 5.4 (Accepta ble) 4.4 - 9.0 Final Performed by:[facility] (1) URINE CREATININE 12:19:00 166 (Accepta ble) mg/dL 20 - 400 Final Performed by:[facility] (1) Advance Directives Directive Yes / No Effective Date File Name No Information Encounters Encounter Description Practice Location Reason(s) For Visit Diagnoses Date Provider Providers Copied on Encounter OFFICE/OUTPA TIENT VISIT, EST [facility], [address] [place] [address], [id number] , [place] tel: [phone] [facility] low back pain (chief complaint) Chronic pain syndromePADRadiculo ramy, lumbar regionPain in right handPain in right footLong term (current) use of opiate analgesicEncounter for therapeutic drug level monitoring 4 Dante Delgado. [address], [place], [id number] , [place]. tel: [phone] Referring Provider: Ac Ortiz[address], [address]. tel:[phone] [facility], [address] [place] [address], [id number] , [place] tel: [phone] [facility] No Information 4 Dante Delgado. [address] [facility] [address], [place], [place], [id number] , [place]. tel: [phone] OFFICE/OUTPA TIENT VISIT, EST [facility], [address] [place] [address], [id number] , [place] tel:[phone] [facility] low back pain (chief complaint) Chronic pain syndromePADRadiculo ramy, lumbar regionPain in right handPain in right footLong term (current) use of opiate analgesic Nov-0 - 4 Dante Delgado[address] [place] [address], [place], [place], [id number] , [place]. tel:[phone] Referring Provider: Darby Ramirez [address], [address]. tel:[phone] OFFICE/OUTPA TIENT VISIT, [facility], [address] [place] [address], [id number] , [place] tel:[phone] [facility] low back pain (chief complaint) Chronic pain syndromePADRadiculo ramy, lumbar regionPain in right handPain in right footLong term (current) use of opiate analgesic Oct-0 [address] Sandy[address] [place] [address], [id number] , [place]. tel:[phone] Referring Provider: Darby Ramirez [address], [address]. tel:[phone] OFFICE/OUTPA TIENT VISIT, [facility], [address] [place] [address], [id number] , [place] tel:[phone] [facility] low back pain (chief complaint) Chronic pain syndromePADRadiculo ramy, lumbar regionPain in right handPain in right footLong term (current) use of opiate analgesic Fe-0 [address]yonge Sandy[address] [place] [address], [id number] , [place]. tel:[phone] Referring Provider: Darby Ramirez [address], [address]. tel:[phone] OFFICE/OUTPA TIENT VISIT, [facility], [address] [place] [address], [id number] , [place] tel:[phone] [facility] low back pain (chief complaint) Chronic pain syndromePADRadiculo ramy, lumbar regionPain in right handPain in right footLong term (current) use of opiate analgesic Doni-0 4 Nyongesa Sandy. [address] [place] [address] e, [place], [id number] , [place]. tel:[phone] Referring Provider: Jenni [facility] [address], [address]. tel:[phone] [facility], [address] [place] [address], [id number] , [place] tel: [phone] [facility] No Information 3 [facility]. [address], [place], [place], [id number] , [place]. tel: [phone] OFFICE/OUTPA TIENT VISIT, [facility], [address] [place] [address], [id number] , [place] tel: [phone] [facility] low back pain (chief complaint) Chronic pain syndromePADRadiculo ramy, lumbar regionPain in right handPain in right footLong term (current) use of opiate analgesicEncounter for therapeutic drug level monitoring [address] [facility] [place] [address], [id number] , [place]. tel:[phone] Referring Provider: Darby Ramirez [address], [address]. tel:[phone] OFFICE/OUTPA TIENT VISIT, [facility], [address] [place] [address], [id number] , [place] tel:[phone] [facility] low back pain (chief complaint) Chronic pain syndromePADRadiculo ramy, lumbar regionPain in right footLong term (current) use of opiate analgesicPain in right hand [address] [facility] [place] [address], [id number] , [place]. tel:[phone] Referring Provider: Darby Ramirez [address], [address]. tel:[phone] OFFICE/OUTPA TIENT VISIT, [facility], [address] [place] [address], [id number] , [place] [phone] [facility] [place] low back pain (chief complaint) Chronic pain syndromePADRadiculo ramy, lumbar regionPain in right footPain in left footLong term (current) use of opiate analgesic May-0 3 [facility]. [address] [facility] [address], [place], [place], [id number] , [place]. tel:[phone] Referring Provider: Darby Ramirez [address], [address]. tel:[phone] OFFICE/OUTPA TIENT VISIT, [facility], [address] [place] [address], [id number] , [place] [phone] [facility] low back pain (chief complaint) Chronic pain syndromePADRadiculo ramy, lumbar regionLong term (current) use of opiate analgesicEncounter for therapeutic drug level monitoringPain in right footPain in left foot Sep-0 3 [facility]. [address] [facility] [address], [place], [place], [id number] , [place]. tel:[phone] Referring Provider: Darby Ramirez [address], [address]. tel:[phone] [facility], [address] [place] [address], [id number] , [place] [phone] [facility] [place] No Information Sep-0 3 [facility]. [address], [place], [place], [id number] , [place]. [phone] OFFICE/OUTPA TIENT VISIT, [facility], [address] [place] [address], [id number] , [place] tel:[phone] [facility] [place] low back pain (chief complaint) Chronic pain syndromePADPain in right hipPain in left hipSacroiliitis, not elsewhere classifiedRadiculop athy, lumbar regionPain in right handLong term (current) use of opiate analgesic 3 Nyongesa Sandy. [address] [facility] [address], [place], [place], [id number] , [place]. tel:[phone] Referring Provider: Darby Ramirez [address], [address]. tel:[phone] OFFICE/OUTPA TIENT VISIT, [facility], [address] [place] [address], [id number] , [place] tel: [phone] [facility] low back pain (chief complaint) Chronic pain syndromePADPain in right hipPain in left hipSacroiliitis, not elsewhere classifiedRadiculop athy, lumbar regionPain in right handLong term (current) use of opiate analgesic 3 Njongesa Sandy. [address] [facility] [address] [facility] 100, [place], [place], [id number] , [place]. tel:[phone] Referring Provider: Darby Ramirez [address], [address]. tel:[phone] OFFICE/OUTPA TIENT VISIT, [facility], [address] [place] [address], [id number] , [place] tel: [phone] [facility] low back pain (chief complaint) Chronic pain syndromePADPain in right hipPain in left hipSacroiliitis, not elsewhere classifiedRadiculop athy, lumbar regionPain in right handLong term (current) use of opiate analgesic 3 Njongesa Sandy. [address] [place] [address], [place], [place], [id number] , [place]. tel:[phone] Referring Provider: Darby Ramirez [facility] [address], [address]. tel:[phone] OFFICE/OUTPA TIENT VISIT, [facility], [address] [place] [address], [id number] , [place] tel:[phone] [facility] low back pain (chief complaint) Chronic pain syndromePADPain in right hipPain in left hipSacroiliitis, not elsewhere classifiedRadiculop athy, lumbar regionPain in right handLong term (current) use of opiate analgesicEncounter for therapeutic drug level monitoring 3 Dante Delgado. [address] [facility] [address], [place], [id number] , [place]. tel:[phone] Referring Provider: Darby Ramirez [address], [address]. tel:[phone] OFFICE/OUTPA TIENT VISIT, [facility], [address] [place] [address], [id number] , [place] tel:[phone] [facility] [place] low back pain (chief complaint) Chronic pain syndromePADSacroili itis, not elsewhere classifiedRadiculop athy, lumbar regionPain in right handLong term (current) use of opiate analgesicPain in right hipPain in left hip 3 Dante Delgado. [address] [facility] [address] [facility] [address], [place], [id number] , [place]. tel:[phone] Referring Provider: Darby Ramirez[address], [address]. tel:[phone] [facility], [address] [place] [address], [id number] , [place] tel:[phone] [facility] [place] No Information 3 Diogo Dey. [address] [place] [address], [id number] , [place]. tel:[phone] OFFICE/OUTPA TIENT VISIT, EST [facility], [address] [place] [address], [id number] , [place] tel:[phone] [facility] [place] low back pain (chief complaint) Chronic pain syndromePADSacroili itis, not elsewhere classifiedRadiculop athy, lumbar regionPain in right handLong term (current) use of opiate analgesic 3 Dante Delgado. [address] [facility] [address], [place], [id number] , [place]. tel: [phone] Referring Provider: Darby Ramirez [address], [address]. tel:[phone] OFFICE/OUTPA TIENT VISIT, [facility], [address] [place] [address], [id number] , [place] tel: [phone] [facility] low back pain (chief complaint) Chronic pain syndromePADSacroili itis, not elsewhere classifiedRadiculop athy, lumbar regionPain in right handLong term (current) use of opiate analgesic Oct-2 0- 3 [facility]. [address] [address], [place], [place], [id number] , [place]. tel: [phone] Referring Provider: Darby Ramirez [address], [address]. tel:[phone] OFFICE/OUTPA TIENT VISIT, [facility], [address] [place] [address], [id number] , [place] tel: [phone] [facility] low back pain (chief complaint) Chronic pain syndromePADSacroili itis, not elsewhere classifiedRadiculop athy, lumbar regionPain in right handLong term (current) use of opiate analgesicEncounter for therapeutic drug level monitoring 3 [facility]. [address] [facility] [address], [place], [place], [id number] , [place]. tel: [phone] Referring Provider: Darby Ramirez [address], [address]. tel:[phone] [facility], [address] [place] [address], [id number] , [place] tel: [phone] [facility] No Information 3 [facility]. [address] [facility] [address], [place], [place], [id number] , [place]. tel: [phone] Referring Provider: Darby Ramirez [address], [address]. tel:[phone] OFFICE/OUTPA TIENT VISIT, [facility], [address] [place] [address], [id number] , [place] tel: [phone] [facility] low back pain (chief complaint) Chronic pain syndromePADRadiculo ramy, lumbar regionPain in right handLong term (current) use of opiate analgesicSacroiliit is, not elsewhere classified 3 Nyongesa Sandy. [address] [place] [address] [address], [place], [place], [id number] , [place]. tel: [phone] Referring Provider: Jenni Ortiz [address], [facility]. tel:[phone] OFFICE/OUTPA TIENT VISIT, [facility], [address] [place] [address], [id number] , [place] tel: [phone] [facility] low back pain (chief complaint) Chronic pain syndromePADRadiculo ramy, lumbar regionPain in right handLong term (current) use of opiate analgesic 2 Nyongesa Sandy. [address] [place] [address] [address], [place], [place], [id number] , [place]. tel: [phone] Referring Provider: Jenni [facility] [address], [address]. tel:[phone] [facility], [address] [place] [address], [id number] , [place] tel: [phone] [facility] [place] Radiculopathy, lumbar region 2 Henrietta Foreman. [address] [place] [address], [id number] , [place]. tel: [phone] Referring Provider: Jenni Ortiz [address], [address]. tel:[phone] OFFICE/OUTPA TIENT VISIT, [facility], [address] [place] [address], [id number] , [place] tel:[phone] [facility] low back pain (chief complaint) Chronic pain syndromePADRadiculo ramy, lumbar regionPain in right handLong term (current) use of opiate analgesic Jun-2 2 Nyongesa Sandy. [address] [facility] [address], [place], [place], [id number] , [place]. tel:[phone] Referring Provider: Darby Ramirez [address], [address]. tel:[phone] OFFICE/OUTPA TIENT VISIT, [facility], [address] [place] [address], [id number] , [place] tel:[phone] [facility] low back pain (chief complaint) Chronic pain syndromePADRadiculo ramy, lumbar regionPain in right handLong term (current) use of opiate analgesic Jun-0 2 Nyongesa Sandy. [address] [address], [place], [place], [id number] , [place]. tel:[phone] Referring Provider: Darby Ramirez [address], [address]. tel:[phone] OFFICE/OUTPA TIENT VISIT, EST [facility], [address] [place] [address], [id number] , [place] tel:[phone] [facility] low back pain (chief complaint) Chronic pain syndromePADRadiculo ramy, lumbar regionPain in right handLong term (current) use of opiate analgesicEncounter for therapeutic drug level monitoring 2 Nyongesa Sandy. [address] [facility] [address] [address], [place], [place], [id number] , [place]. tel:[phone] Referring Provider: Darby Ramirez [address], [address]. tel:[phone] [facility], [address] [place] [address], [id number] , [place] tel:[phone] [facility] No Information 0 2 Nyongesa Sandy. [address] [facility] [address] [facility] [address], [place], [id number] , [place]. tel:[phone] Referring Provider: Darby Ramirez [address], [address]. tel:[phone] OFFICE/OUTPA TIENT VISIT, [facility], [address] [place] [address], [id number] , [place] tel: [phone] [facility] low back pain (chief complaint) Chronic pain syndromePADRadiculo ramy, lumbar regionPain in right handLong term (current) use of opiate analgesicEncounter for screening for other disorder Sep-0 2 Njjerri Delgado. [address] [place] [address], [place], [place], [id number] , [place]. tel:[phone] Referring Provider: Darby Ramirez [address], [address]. tel:[phone] OFFICE/OUTPA TIENT VISIT, [facility], [address] [place] [address], [id number] , [place] tel: [phone] [facility] low back pain (chief complaint) Chronic pain syndromeRadiculopat hy, lumbar regionPain in right handLong term (current) use of opiate analgesicPAD Aug-0 2 Njjerri Delgado. [address] [facility] [address] [address], [place], [place], [id number] , [place]. tel:[phone] Referring Provider: Darby Ramirez [address], [address]. tel:[phone] [facility], [address] [place] [address], [id number] , [place] tel:[phone] [facility] No Information 0 2 Dante Delgado. [address] [facility] 11 [facility] 100, [place], [id number] , [place]. tel:[phone] Referring Provider: Tiburcio Montes, [address] [place], [address] . tel:[phone] OFFICE/OUTPA TIENT VISIT, [facility], [address] [place] [address], [id number] , [place] tel: [phone] [facility] low back pain (chief complaint) Chronic pain syndromeRadiculopat hy, lumbar regionPain in right handUnspecified Housing or Economic ProblemLong term (current) use of opiate analgesic Tal-0 6- 2 Nyongesa Sandy. [address], [place], [place], [id number] , [place]. tel: [phone] Referring Provider: [facility] [address], [address]. tel:[phone] OFFICE/OUTPA TIENT VISIT, [facility], [address] [place] [address], [id number] , [place] tel: [phone] [facility] low back pain (chief complaint) Chronic pain syndromeRadiculopat hy, lumbar regionPain in right handUnspecified Housing or Economic ProblemLong term (current) use of opiate analgesic Eric-0 2 Nyongesa Sandy. [id number] [place] [address], [place], [place], [id number] , [place]. tel: [phone] Referring Provider: Ac Ortiz[address], [address]. tel:[phone] OFFICE/OUTPA TIENT VISIT, [facility], [address] [place] [address], [id number] , [place] tel: [phone] [facility] low back pain (chief complaint) Chronic pain syndromeRadiculopat hy, lumbar regionPain in right handLong term (current) use of opiate analgesicUnspecifie d Housing or Economic Problem May-0 5- 2 Nyongesa Sandy. [address], [place], [place], [id number] , [place]. tel:[phone] Referring Provider: Darby Detert, [address], [address]. tel:[phone] [facility], [address] [place] [address], [id number] , [place] tel:[phone] [facility] low back pain (chief complaint) Chronic pain syndromeRadiculopat hy, lumbar regionPain in right handLong term (current) use of opiate analgesic Apr-0 2 Arpitaongesa Sandy. [address] [facility] [address], [place], [place], [id number] , [place]. tel:[phone] Referring Provider: Darby Ramirez, [address], [address]. tel:[phone] [facility], [address] [place] [address], [id number] , [place] tel:[phone] [facility] No Information 2 Nyongesa [id number] [place] [address] [address], [place], [id number] , [place]. tel:[phone] Referring Provider: Tiburcio Montes, [address] [place], [place] [address], [address] . tel:[phone] OFFICE/OUTPA TIENT VISIT, [facility], [address] [place] [address], [id number] , [place] tel:[phone] [facility] low back pain (chief complaint) Pain in right handLong term (current) use of opiate analgesicChronic pain syndromeRadiculopat hy, lumbar regionEncounter for therapeutic drug level monitoring 2 Tiffanysa Sandy. [address] [facility] [address], [place], [id number] , [place]. tel:[phone] Referring Provider: Darby Ramirez, [address], [address]. tel:[phone] OFFICE/OUTPA TIENT VISIT, [facility], [address] [place] [address], [id number] , [place] tel: [phone] [facility] low back pain (chief complaint) Pain in right handLong term (current) use of opiate analgesicChronic pain syndromeRadiculopat hy, lumbar region 1 Nyongesa Sandy. [address] [facility] 11 [facility] 100, [place], [place], [id number] , [place]. tel: [phone] Referring Provider: Darby Ramirez [address], [address]. tel:[phone] OFFICE/OUTPA TIENT VISIT, [facility], [address] [place] [address], [id number] , [place] tel: [phone] [facility] low back pain (chief complaint) Pain in right handLong term (current) use of opiate analgesicChronic pain syndromeRadiculopat hy, lumbar region 1 Nyongesa Sandy. [address] [address], [place], [place], [id number] , [place]. tel: [phone] Referring Provider: Darby Ramirez [address], [address]. tel:[phone] OFFICE/OUTPA TIENT VISIT, [facility], [address] [place] [address], [id number] , [place] tel: [phone] [facility] low back pain (chief complaint) Radiculopathy, lumbar regionPain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
--- OUTSIDE RECORDS SUMMARY | 2024-01-20 07:24 | XMS_ITS | Continuity of Care Document ---
Author Organization [facility] Address [address] [place] [address] Care Team Providers Care Infant Nanny Name Role Phone Kenji Sheikh CRNA Unavailable Unavailable Procedures Procedure Date Percutaneous Image guided injection, dra pozo, or Advance Directives Directive Yes / No Effective Date File Name No Information Encounters Encounter Description Practice Location Reason(s) For Visit Diagnoses Date Provider Providers Copied on Encounter [facility], [address] [place], [place], [id number], [facility] No Information Aguilar Phillip. [address] [place], [place], [id number] , . tel:[phone] Referring Provider: Kellen Shrestha, [address] [place], [address] . tel:[phone] Family History Family Member Type Diagnosis Age At Onset No Information Payers Payer name Insurance type Covered constitution party ID Authoriza tion(s) No Information Social [...]
[2024-01-20 07:26] LABS: Alkaline Phosphatase* 90 U/L (40-150); Anion Gap 4 mEq/L (7-15); Aspartate Amino Transferase* 39 U/L (12-35); Bilirubin Total* 0.8 mg/dL (0.1-1.5); Blood Urea Nitrogen* 13 mg/dL (7-30); Carbon Dioxide* 27 mmol/L (20-32); Creatinine* 1.1 mg/dL (0.5-1.5); Est. Creatinine Clearance* 70.05; Estimated Glomerular Filt Rate 75 ml/min; Glucose* 102 mg/dL (60-115); Total Protein* 9.1 g/dL (6.0-8.3)
[2024-01-20 07:27] LABS: Alanine Aminotransferase* 25 U/L (4-50); Calcium* 9.9 mg/dL (8.4-10.6); Magnesium* 1.9 mg/dL (1.5-2.6)
== END 2024-01-20 07:47 | disposition home or self-care (01) ==
PROVIDERS: Emergency Provider Student in an Organized Health Care Education/Training Program; PCP Family Medicine
DX: R19.7 Diarrhea, unspecified (principal)
CPT/HCPCS: 36415; 80053; 83605; 83735; 85025; 99282

== ENCOUNTER 2024-05-09 11:45 | Emergency (ER) | payer MEDICARE, SELFPAY ==
[2024-05-09 11:53] VITALS: BP 163/65; PULSE 56; RESP 18; TEMP 36.2; O2SAT 96; BMI 23.8
[2024-05-09] MEDS: GI COCKTAIL (VISC LIDO/ANTACID) 30 ML PO (12:33)
--- OUTSIDE RECORDS SUMMARY | 2024-05-09 12:54 | XMS_ITS | Clinical Summary ---
Author Organization [facility] Address [address] [place] [address] Care Team Providers Care Door Manager Name Role Phone Theodore Denise MD Unavailable [phone] No Ref-Primary, Physician Primary Care Provider Allergies [...] 04/06/2022 7:26 AM CDT Plan of Treatment Upcoming Encounters Date Type Department Care Team (Late st Contact Info) Description 06/17/2024 8:00 AM CDT Ancillary Procedure [facility] Imaging [address] [place] [phone] Theodore Denise MD [address] [place] [address] [address] [place] [address] 06/17/2024 8:40 AM CDT Ancillary Procedure [facility] Imaging [address] [place] [phone] Theodore Denise MD [address] [place] [address] [address] [place] [address] 06/17/2024 9:10 AM CDT Ancillary Procedure [facility] [address] [place] [phone] Theodore Denise MD [address] [place] [address] [address] [place] [address] 06/17/2024 10:00 AM CDT Office Visit [address] [place] [phone] Theodore Denise MD [address] [place] [address] [address] [place] [address] Edda Hidalgo PA-C Vascular, Vein, and Wound [address] [place] [address] [address] [place] [address] Health Maintenance Due Date Last Done Comments [...] (2 of 2 - PCV) 11/10/2011 11/09/2010 LIPID 04/15/2020 04/15/2019 BMP 04/06/2023 04/06/2022 PHQ-2 (once per calendar year) 2023 COVID-19 Vaccine (3 - 2023-2 5 season) 2024 05/20/2021, 04/12/2021 INFLUENZA VACCINE (#1) 2024 GLUCOSE 04/06/2025 04/06/2022 COLONOSCOPY 03/17/2026 03/17/2016 COLORECTAL CANCER SCREENING 03/17/2026 DTAP/TDAP/TD IMMUNIZATION (3 - Td or Tdap) 10/23/2031 10/22/2021, 11/09/2010 RSV VACCINE (1 - 1-dose 75+ series) 11/11/2034 HEPATITIS C SCREENING Completed 08/28/2019 HPV IMMUNIZATION [...] STAT 04/06/2022 7:11 AM CDT HEPATITIS C ([facility] EXTERNAL RESULT) Routine 08/28/2019 LIPID PROFILE Routine 04/15/2019 HIM COLONOSCOPY SCAN Routine 03/17/2016 from Last 3 Months or Most Recently Relevant to Health Maintenance Results * (ABNORMAL) Basic metabolic panel (04/06/2022 7:11 AM CDT) Sodium 141 136 - 145 mmol/L 04/06/2022 7:54 AM CDT N LABORATORY Potassium 4.5 3.5 - 5.0 mmol/L 04/06/2022 7:54 AM CDT N LABORATORY Chloride 108(H) 98 - 107 mmol/L 04/06/2022 7:54 AM CDT N LABORATORY Carbon Dioxide (CO2) 28 22 - 31 mmol/L 04/06/2022 7:54 AM CDT N LABORATORY Anion Gap 5 5 - 18 mmol/L 04/06/2022 7:54 AM CDT N LABORATORY Urea Nitrogen 18 8 - 22 mg/dL 04/06/2022 7:54 AM CDT N LABORATORY Creatinine 1.37(H) 0.70 - 1.30 mg/dL 04/06/2022 7:54 AM CDT N LABORATORY Calcium 9.5 8.5 - 10.5 mg/dL 04/06/2022 7:54 AM CDT N LABORATORY Glucose 95 70 - 125 mg/dL 04/06/2022 7:54 AM CDT N LABORATORY GFR Estimate 58(L) >60 mL/min/1.7 3m2 04/06/2022 7:54 AM CDT [facility] Comment:Effective July 222020 eGFRcr in adults is calculated using the 2020 CKD-EPI creatinine equation which includes age and gender (Anshul et al., NEJM, DOI: 10.1056/MASUks4864192) Blood STRUCTURE OF LEFT UPPER LIMB / Unknown Venipuncture / Unknown 04/06/2022 7:11 AM CDT 04/06/2022 7:35 AM CDT Sheri Thompson DO LAB - BLOOD ORDERABL ES N LABORATORY [facility] [address] [place] [address], [facility] [phone] * Hep C - HIM (08/28/2019) Hep C HIM See Scanned Report [facility] Comment:Non-Reactive 08/28/2019 Narrative 08/28/2019 [facility] External Result Historical Provider LAB - HIM EXTERNAL R ESULT [facility] [address] [place] [address] * Lipid Profile (04/15/2019) Cholesterol 142 100 - 199 mg/dL [facility] Triglycerides 61 <150 mg/dL [facility] HDL Cholesterol 44 >40 mg/dL [facility] LDL Cholesterol Calculated 86 <=130 mg/dL [facility] Non HDL Chol. (LDL+VLDL) 98 <145 mg/dL [facility] Blood specimen (specimen) 04/15/2019 Narrative 04/15/2019 [facility] External Result Historical Provider LAB - BLOOD ORDERABL ES [facility] [address] [place] [address] * - HIM Screen Colonoscopy Scan (03/17/2016) Narrative Hyacinth Doran - 03/17/2016 This order was created through External Result Entry [facility] - progress note Historical Provider PROCEDURES from Last 3 Months or Most Recently Relevant to Health Maintenance Care Teams Door Manager Relationship Specialty Start Date End Date No Ref-Primary, Physician PCP - General 01/12/22 Theodore Denise MD [facility] [address] Assigned Heart and Vascular Provider 03/05/21
--- OUTSIDE RECORDS SUMMARY | 2024-05-09 12:54 | XMS_ITS | Referral Summary ---
Author Organization [facility] Address [address] [place] [address] Care Team Providers Care Air Route Controller Name Role Phone Theodore Denise MD Unavailable [phone] No Ref-Primary, Physician Primary Care Provider Allergies [...] Description 06/17/2024 8:00 AM CDT Ancillary Procedure [facility] Imaging [address] [place] [phone] Theodore Denise MD [address] [place] [address] [address] [place] [address] 06/17/2024 8:40 AM CDT Ancillary Procedure [facility] [address] [place] [phone] Theodore Denise MD [address] [place] [address] [address] [place] [address] 06/17/2024 9:10 AM CDT Ancillary Procedure [facility] [address] [place] [phone] Theodore Denise MD [address] [place] [address] [address] [place] [address] 06/17/2024 10:00 AM CDT Office Visit [address] [place] [phone] Theodore Denise MD [address] [place] [address] [address] [place] [address] Edda Hidalgo PA-C Vascular, Vein, and Wound [address] [place] [address] [address] [place] [address] [phone] (Work) Procedures Procedure Name Priority Date/Time Associated Diagnosis Comments BASIC METABOLIC PANEL STAT 04/06/2022 7:11 AM CDT HEPATITIS C ([facility] EXTERNAL RESULT) Routine 08/28/2019 LIPID PROFILE Routine [...] equation which includes age and gender (Anshul warner al., NEJM, DOI: 10.1056/JCZTct8047311) Blood STRUCTURE OF LEFT UPPER LIMB / Unknown Venipuncture / Unknown 04/06/2022 7:11 AM CDT 04/06/2022 7:35 AM CDT Sheri Thompson DO LAB - BLOOD ORDERABL ES Performing Organization Address City/[facility]/ZIP Co de Phone Number [facility] [address] [place] [address], [facility] [phone] * Hep C - HIM (08/28/2019) Hep C HIM See Scanned Report [facility] Comment:Non-Reactive 08/28/2019 Narrative 08/28/2019 [facility] External Result Historical Provider LAB - HIM EXTERNAL R ESULT Performing Organization Address [facility]/ZIP Co de Phone Number [facility] [address] [place] [address] * Lipid Profile (04/15/2019) Cholesterol 142 100 - 199 mg/dL [facility] Triglycerides 61 <150 mg/dL [facility] HDL Cholesterol 44 >40 mg/dL [facility] LDL Cholesterol Calculated 86 <=130 mg/dL [facility] Non HDL Chol. (LDL+VLDL) 98 <145 mg/dL [facility] Blood specimen (specimen) 04/15/2019 Narrative 04/15/2019 [facility] External Result Historical Provider LAB - BLOOD ORDERABL ES [facility] [address] [place] [address] * - HIM Screen Colonoscopy Scan (03/17/2016) Narrative Hyacinth Doran - 03/17/2016 This order was created through External Result Entry [facility] - progress note Historical Provider PROCEDURES from Last 3 Months or Most Recently Relevant to Health Maintenance Care Teams Air Route Controller Relationship Specialty Start Date End Date No Ref-Primary, Physician PCP - General 01/12/22 Theodore Denise MD [address] [place] [address] Assigned Heart and Vascular Provider 03/05/21
--- OUTSIDE RECORDS SUMMARY | 2024-05-09 12:54 | XMS_ITS | Continuity of Care Document ---
Author Organization [facility] Address [address] [place] [address] Care Team Providers Care Vp Revenue Cycle Name Role Phone Kenji Sheikh CRNA Unavailable Unavailable Procedures Procedure Date Percutaneous Image guided injection, dra pozo, or Advance Directives Directive Yes / No Effective Date File Name No Information Encounters Encounter Description Practice Location Reason(s) For Visit Diagnoses Date Provider Providers Copied on Encounter [facility], [address] [place], [place], [phone], [facility] No Information Aguilar Phillip. [address] [place], [place], [id number] , . tel:[phone] Referring Provider: Kellen Shrestha, [address] [place], [address] . tel:[phone] Family History Family Member Type Diagnosis Age At Onset No Information Payers Payer name Insurance type Covered republican ID Authoriza tion(s) No Information Social History [...]
--- OUTSIDE RECORDS SUMMARY | 2024-05-09 12:54 | XMS_ITS | Encounter Summary ---
Author Organization [facility] Address [address] [place] [address] Care Team Providers Care Portfolio Consultant Name Role Phone Theodore Denise MD Unavailable [phone] No Ref-Primary, Physician Primary Care Provider Reason for Visit * Reason Onset Date Comments symptome 04/07/2022 Encounter Details Date Type Department Care Team (Late st Contact Info) Description 04/07/[address] [phone] Theodore Denise MD [address] [place] [address] symptome Social History Tobacco Use Types [...] be reached at: Home number on file [phone] (home) Best Time: anytime Can we leave a detailed message on this number: YES Call taken on 04/07/2022 at 7:57 AM by Leda Licea documented in this encounter Plan of Treatment Upcoming Encounters Date Type Department Care Team (Late st Contact Info) Description 06/17/2024 8:00 AM CDT Ancillary Procedure [address], [place] [phone] Theodore Denise MD [address] [place] [address] 06/17/2024 8:40 AM CDT Ancillary Procedure [address], [place] [phone] Theodore Denise MD [address] [place] [address] 06/17/2024 9:10 AM CDT Ancillary Procedure [facility] Imaging [address], [place] [phone] Theodore Denise MD [address] [place] [address] 06/17/2024 10:00 AM CDT Office Visit [address], [place] [phone] Theodore Denise MD [address] [facility] [address] [place], [place] [phone] Edda Hidalgo PA-C Vascular, Vein, and Wound [address] [facility] [address] [place], [place] [phone] documented as of this encounter Visit Diagnoses Not on filedocumented in this encounter Care Teams Portfolio Consultant Relationship Specialty Start Date End Date No Ref-Primary, Physician PCP - General 01/12/22 Theodore Denise MD [facility] [address], [place] [phone] Assigned Heart and Vascular Provider 03/05/21 documented as of this encounter
--- OUTSIDE RECORDS SUMMARY | 2024-05-09 12:54 | XMS_ITS | Encounter Summary ---
Author Organization [facility] Address [address] [place] [address] Care Team Providers Care Sand Mill Grinder Name Role Phone Theodore Denise MD Unavailable [phone] No Ref-Primary, Physician Primary Care Provider Reason for Visit * Reason Comments Leg Pain Encounter Details Date Type Department Care Team (Late st Contact Info) Description 02/22/2021 Office Visit - [facility] Vascular [address] [place] [phone] Theodore Denise MD [address] [place] [phone] PAD (peripheral artery disease) (H) Social History [...] 11:45 AM Encounter Date: 02/22/2021 Status: Signed Plaster Whittler: Yaa Hyatt LPN (Licensed Nurse) 6 month [...] 11:45 AM Encounter Date: 02/22/2021 Status: Signed Plaster Whittler: Theodore Denise MD (Physician) VASCULAR SURGERY PROGRESS NOTE VASCULAR SURGEON: Theodore Denise MD, RPVI LOCATION: [facility] Abreu Date of : 1960 Age: [...] Leg:(cm/s) Location: [facility] EIA: 121 B SAFE EXPERT: 104 B PFA: 190 B SFA Proximal: 80 /94 M SFA Mid: 119 /222/199 M SFA Distal: 97 /73 M Popliteal Artery: 62/67 M CORPORATE AUDITOR: 42 M MELLISA: 40 M DPA: 38 M Waveforms: T=Triphasic, M=Monophasic, B=Biphasic Stenotic Profile Ratio: 222 / 119 = 1.86 Left Leg:(cm/s) Location: [facility] EIA: 75 M SAFE EXPERT: 135 B PFA: 305 /149 B SFA Proximal: OCC N/A SFA Mid: OCC/ 257(RECANN.)/76 M SFA Distal: 45 M Popliteal Artery: 107/67 M CORPORATE AUDITOR: 41 M AT A: 15 M DPA: [...] and coordination of care. Theodore Denise MD, [facility] VASCULAR SURGERY documented in this encounter Miscellaneous Notes * Patient Instructions - HE - Tara Moore RN - 02/22/2021 11:00 AM CDT Images from the original note were not included. Patient Instructions by Halley Moore RN at 02/22/2021 11:00 AM Author: Halley Moore RN Service: -- Author Type: Registered Nurse Filed: 02/22/2021 11:44 AM Encounter Date: 02/22/2021 Status: Signed Plaster Whittler: Halley Moore RN (Registered Nurse) Take 100mg of Pletal two times a day Lower Extremity Arterial Ultrasound Description Ultrasound examinations are painless and easy for the patient. The vascular laboratory will containa bed and just two or three pieces of equipment. You will be asked to remove pants or shorts and gowns will be provided. It usually takes about 30 minutes. The global position system technician will tuck a towel under your underpants in the groin. The gel is water-soluble and will not stain your skin or clothes. Ultrasound gel, usually warmed for your comfort, will be placed on the inner side of your legs. Through the gel, the global position system technician will apply to your legs a small hand-held device that emits sound waves. When the test is completed, the global position system technician will remove excess gel from your legs. Risks There are typically no side effects or complications associated with a lower extremity arterial duplex ultrasound. How to Prepare Eat and take medications as usual. There is no preparation required for a lower extremity arterial duplex ultrasound. What Can I Expect After the Test? The global position system technician will send the ultrasound images to [...] checked with an arm cuff, as the global position system technician inflates the cuffs, they progressively tighten [...] perform a light walk linda treadmill. The global position system technician will apply ultrasound gel, usually warmed for your comfort, to your ankles and wrists. Through the gel, the global position system technician will use a small hand- held device that emits sound waves. Risks There are typically no side effects or complications associated with a physiologic study. How to Prepare Eat and take medications as usual. There is no preparation required for an ankle-brachial index (DOM) or physiologic exam. What Can I Expect After the Test? The global position system technician will send the ultrasound images to your vascular surgeon for evaluation. Typically, a report is available in 2-3 days. If anything critical is found, it is standard practice to notify the vascular surgeon immediately. Reference: https://vascular.org/patient-resources/vascular-tests documented in this encounter Plan of Treatment Upcoming Encounters Date Type Department Care Team (Late st Contact Info) Description 06/17/2024 8:00 AM CDT Ancillary Procedure [facility] Imaging [address], [place] [address] Theodore Denise MD [address] [place] [address] [address] [place] [address] 06/17/2024 8:40 AM CDT Ancillary Procedure [facility] [address] [facility] [address] [place] [phone] Theodore Denise MD [address] [place] [address] [address], [place] [phone] 06/17/2024 9:10 AM CDT Ancillary Procedure [facility] [address] [place] [address] [address], [place] [phone] Theodore Denise MD [address] [place] [address], [place] [address] 06/17/2024 10:00 AM CDT Office Visit [address], [place] [phone] Theodore Denise MD [address] [place] [phone] Edda Hidalgo PA-C Vascular, Vein, and Wound [address] [place] [address], [place] [phone] documented as of this encounter Visit Diagnoses Diagnosis PAD (peripheral artery disease) (H24) Unspecified disorders of arteries and arterioles documented in this encounter Care Teams Sand Mill Grinder Relationship Specialty Start Date End Date No Ref-Primary, Physician PCP - General 01/12/22 Theodore Denise MD [address] [place] [address], [place] [phone] Assigned Heart and Vascular Provider 7/16/21 documented as of this encounter
--- OUTSIDE RECORDS SUMMARY | 2024-05-09 12:54 | XMS_ITS | Encounter Summary ---
Author Organization Man Address [address] [place] [id number] Care Team Providers Care Subway Train Driver Name Role Phone Theodore Denise MD Unavailable [phone] No Ref-Primary, Physician Primary Care Provider Encounter [...] as of this encounter Plan of Treatment Upcoming Encounters Date Type Department Care Team (Late st Contact Info) Description 06/17/2024 8:00 AM CDT Ancillary Procedure [facility] [address] [place] [phone] Theodore Denise MD [address] [place] [address] [place] [address] 06/17/2024 8:40 AM CDT Ancillary Procedure [facility] [address] [phone] Theodore Denise MD [address] [place] [address] 06/17/2024 9:10 AM CDT Ancillary Procedure [facility] [place] [address] [place] [phone] [place] [address] [place] [address] [address] [place] [address] 06/17/2024 10:00 AM CDT Office Visit [facility] [address] [place] [phone] [place] [address] [place] [address] [address] [place], [place] [id number] Edda Hidalgo PA-C Vascular[facility] Vein[facility] Wound [address] [place] [address] [address] [place], [place] [phone] documented as of this encounter Visit Diagnoses Not on filedocumented in this encounter Care Teams Subway Train Driver Relationship Specialty Start Date End Date No Ref-Primary, Physician PCP - General 01/12/22 Theodore Denise MD [address] [place] [address] [address] [place], [place] [phone] Assigned Heart and Vascular Provider 03/05/21 documented as of this encounter
--- OUTSIDE RECORDS SUMMARY | 2024-05-09 12:54 | XMS_ITS | Continuity of Care Document ---
Author Organization [facility] enter Address [address] [place] [phone] Phone Care Team Providers Care Corrosion Technician Name Role Phone [facility] Unavailable Unava ilable Procedures Procedure Date INJ FORAMEN EPIDURAL L/S Advance Directives Directive Yes / No Effective Date File Name No Information Encounters Encounter Description Practice Location Reason(s) For Visit Diagnoses Date Provider Providers Copied on Encounter [facility], [address] [place] [address], [id number], tel:[phone] [facility] No Information [facility]. [address] [place] [address], [id number], . tel:[phone] Referring Provider: Kellen Shrestha, [address] [place], [address] . tel:[phone] Family History Family Member Type Diagnosis Age At Onset No Information Payers Payer name Insurance type Covered libertarian ID Authoriza tion(s) No Information Social History [...]
--- OUTSIDE RECORDS SUMMARY | 2024-05-09 12:55 | XMS_ITS | Clinical Summary ---
Author Organization [facility] Address [place], [place] [address] Care Team Providers Care Transmission Assembler Name Role Phone Darby Ramirez DO Primary [...] prior to procedure. 4000 mL 10/13/2023 Active HYDROcodone-acetam inophen (5-325 mg/tablet) TAKE 1 [...] once daily. 90 Tablet 1 11/26/2023 Active atorvastatin (LIPITOR) 80 mg tabletIndications: Hypertension,Jona ication of both lower extremities (HC),PAD (peripheral artery disease) (HC) TAKE 1 TABLET(80 MG) BY MOUTH EVERY DAY WITH THE EVENING MEAL 90 Tablet 05/04/2024 Active atorvastatin (LIPITOR) 80 mg tabletIndications: Hypertension,Jona ication of both lower extremities (HC),PAD (peripheral artery disease) (HC) TAKE 1 TABLET(80 MG) BY MOUTH EVERY DAY WITH THE EVENING MEAL 90 Tablet 2 07/27/2023 05/04/20 24 Discontinued Active Problems Problem Noted Date Diagnosed Date Chronic pain due to injury 10/22/2021 Overview (10/22/2021): sees pain clinical operations manager for pain medications. Hand pain, right 08/25/2015 Overview (10/13/2015): Aug 2015: EMG shows mild Carpal Tunnel Syndrome findings, but normal Ulnar nerve. Pain medication agreement 12/19/2014 History of hand fracture 05/28/2014 Erectile dysfunction 08/19/2013 Tobacco use disorder 04/13/2012 Hidradenitis suppurativa 01/06/2012 Hypertension 01/06/2012 Gout, unspecified 01/06/2012 Resolved Problems Problem Noted Date Diagnosed Date Resolved Date Controlled substance agreement broken 12/08/2017 01/05/2018 Encounters Date Type Department Care Team Description 04/30/2024 Refill [facility] [address] [place] [address] Darby Ramirez DO Refill Request (Atorvastatin) from Last 3 Months Immunizations Name Administration [...] 174 cm (5' 8.5) 06/28/2023 9:08 AM COLLISION WORKER Body Mass Index 24.89 06/28/2023 9:08 AM COLLISION WORKER Plan of Treatment Health Maintenance Due Date Last Done Comments Zoster (shingles) series for age 50+ (1 of 2) 11/11/2009 Pneumococcal series for age 6-64 (2 of 2 - PCV) 11/10/2011 11/09/2010 Colonoscopy through age 75 03/28/202103/28, 03/28/2016, 12/22/2009 COVID-19 vaccine series ( season) 2024 05/20/2021, 04/12/2021 Influenza for age 50-64 04/21/2024 [...] MAINTAINS BP less than 140/90 Blood Pressure Gume Salazar MD Procedures Procedure Name Priority Date/Time Associated Diagnosis Comments ANTI HIV 1/2 Routine 07/06/2023 9:20 AM COLLISION WORKER Screening for HIV (human immunodeficiency virus) LIPID PANEL W REFLEX MEASURED LDL Routine 07/06/2023 9:20 AM COLLISION WORKER Lipid screening ANTI HCV Routine 08/28/2019 4:49 PM COLLISION WORKER Unexplained weight loss SCAN-COLONOSCOPY 03/28/2016 12:0 0 AM CDT OCCULT BLOOD IFOBT STOOL Routine 03/30/2015 1:08 PM CDT Screening for colorectal cancer from Last 3 Months or Most Recently Relevant to Health Maintenance Results * LIPID PANEL W REFLEX MEASURED LDL (07/06/2023 9:20 AM COLLISION WORKER) CHOLESTEROL,TOTAL 133 100 - 199 mg/dL 07/06/2023 5:44 PM COLLISION WORKER [facility] [employer] [facility] Comment: Cholesterol, Total Reference Ranges Desirable <200 mg/dL Borderline 200-239 mg/dL High >=240 mg/dL TRIGLYCERIDES 57 <150 mg/dL 07/06/2023 5:44 PM COLLISION WORKER [facility] [employer] [facility] HDL CHOLESTEROL 50 >40 mg/dL 5:44 PM COLLISION WORKER [facility] NON-HDL CHOLESTEROL 83 <145 mg/dl 07/06/2023 5:44 PM COLLISION WORKER [facility] CHOL/HDL RATIO 2.66 <4.50 07/06/2023 5:44 PM COLLISION WORKER [facility] LDL CHOLESTEROL 72 <=130 mg/dL 07/06/2023 5:44 PM COLLISION WORKER [facility] VLDL CHOLESTEROL 11 <=30 mg/dL 07/06/2023 5:44 PM COLLISION WORKER [facility] PROVIDER ORDERED STATUS RANDOM 07/06/2023 5:44 PM COLLISION WORKER [facility] Blood BLOOD SPECIMEN / Unknown Venipuncture / Unknown 07/06/2023 9:20 AM COLLISION WORKER 07/06/2023 9:22 AM COLLISION WORKER Darby Ramirez DO CHEMISTRY [facility] [address] [address], * ANTI HIV 1/2 [72672.0] (07/06/2023 9:20 AM COLLISION WORKER) HIV-1/HIV-2 SCREEN Non-Reacti ve Non-Reacti ve 07/06/2023 6:15 PM COLLISION WORKER [facility] Comment:HIV-1 p24 and HIV-1/ HIV-2 Ab Not Detected. Blood BLOOD SPECIMEN / Unknown Venipuncture / Unknown 07/06/2023 9:20 AM COLLISION WORKER 07/06/2023 9:22 AM COLLISION WORKER Darby Ramirez DO SEND OUTS [facility] [address] [address], * ANTI HCV (08/28/2019 4:49 PM COLLISION WORKER) HEPATITIS C ANTIBODY Non-React alexandra Non-React alexandra 08/29/2019 1:59 PM COLLISION WORKER [facility] Comment:Antibodies to HCV no t detected; does not exclude the possibility of exposure to HCV. Blood BLOOD SPECIMEN / Unknown Butterfly / Unknown 08/28/2019 4:49 PM COLLISION WORKER 08/28/2019 4:50 PM COLLISION WORKER Darby Ramirez DO SEND OUTS [facility] [address] [place] [address], * SCAN-COLONOSCOPY (03/28/2016 12:00 AM CDT) Scanner OTHER * OCCULT BLOOD IFOBT STOOL (03/30/2015 1:08 PM CDT) STOOL BLOOD ,IFOBT Negative Negative, Invalid 04/03/2015 1:55 PM CDT [facility] Stool specimen (specimen) STOOL SPECIMEN / Unknown Non-Blood / Unknown 03/30/2015 1:08 PM CDT 04/03/2015 1:08 PM CDT Darby Ramirez DO LABORATORY [facility] [address] [place] [address], from Last 3 Months or Most Recently Relevant to Health Maintenance Care Teams Transmission Assembler Relationship Specialty Start Date End Date Darby Ramirez DO [address] [place] [address] PCP - General Family Practice 11/02/21
--- OUTSIDE RECORDS SUMMARY | 2024-05-09 12:55 | XMS_ITS | Continuity of Care Document ---
Author Organization [facility] Address [address] [place] [address] Phone Care Team Providers Care International Accountant Name Role Phone Guillermo Calix DO Unavailable Unavailable Allergies, Adverse Reactions, Alerts Substance Reaction Status Criticality lisinopril Lip swelling Active No Information Medications Medication Instructions Dosage Effective Dates (start - stop) Status Comments MS Contin 15 mg tablet,extended release take 1 tablet by ORAL route every 8 hours for chronic pain. Start Use Date: 04/15/2024-05/14/20 - Active chronic pain, ok to fill today. hydrocodone 7.5 mg-acetaminophen 325 mg tablet take 1 tablet by oral route every 6 hours as needed for pain, max 4/day. Use Dates: 04/15/2024-05/14/20 - Active chronic pain, ok to fill today. gabapentin 300 mg capsule take 3 capsule [...] Take 25 mg by mouth - Active Colace Clear 50 mg capsule [...] ORAL route every 8 hours for chronic pain. Start Use Date: 04/15/2024-05/14/20 24 - No Longer Active chronic pain, ok to fill today. MS Contin 15 mg tablet,extended release take 1 tablet by ORAL route every 8 hours for chronic pain 15 MG - No Longer Active hydrocodone 5 mg-acetaminophen 325 mg tablet take 1 tablet by ORAL route every 6 hours prn, max 4 per day - No Longer Active hydrocodone 7.5 mg-acetaminophen 325 mg tablet take 1 tablet by oral route every 6 hours as needed for pain, max 4/day - No Longer Active Procedures Procedure Date Drug Urine Toxology With Chromatography Drug test [...] VISIT, EST INJ FORAMEN EPIDURAL L/S BILATERAL Jul- Foll-up eval q3mo opiod tx OFFICE/OUTPATIENT VISIT, [...] SCREEN Preliminar y Image UDT 1 AMPHETAMINE 10:43:00 -84 (Negativ e) ng/mL 0 Preliminary Performed by:[facility] (1) BARBITURATES 10:43:00 -92 (Negativ e) ng/mL 0 Preliminary Performed by:[facility] (1) COCAINE 10:43:00 -101 (Negativ e) ng/mL 0 Preliminary Performed by:[facility] (1) METHADONE 10:43:00 -100 (Negativ e) ng/mL 0 Preliminary Performed by:[facility] (1) OPIATES 10:43:00 353 (Positiv e) ng/mL 0 A Preliminary Performed by:[facility] (1) BENZODIAZEPINES 10:43:00 -101 (Negativ e) ng/mL 0 Preliminary Performed by:[facility] (1) PHENCYCLIDINE - PCP 10:43:00 -105.00 (Negativ e) ng/mL 0.00 Preliminary Performed by:[facility] (1) CANNABINOIDS - THC - MARIJUANA 10:43:00 102 (Positiv e) ng/mL 0 A Preliminary Performed by:[facility] (1) FENTANYL 10:43:00 -97.00 (Negativ e) 0.00 Preliminary Cutoff 2ng/mLPerf ormed by:[facility] () OXYCODONE 10:43:00 -95 (Negativ e) ng/mL 0 Preliminary Performed by:[facility] () ETHYL ALCOHOL 10:43:00 1 (Negativ e) mg/dL 100 Preliminary Performed by:[facility] () URINE SPECIFIC GRAVITY 10:43:00 1.016 (Accepta ble) 1.003 - 1.035 Preliminary Performed by:[facility] () URINE PH 10:43:00 5.3 (Accepta ble) 4.4 - 9.0 Preliminary Performed by:[facility] () URINE CREATININE 10:43:00 161 (Accepta ble) mg/dL 20 - 400 Preliminary Performed by:[facility] (1) Panel Description: Full Confirmation Panel Renee khan Alprazolam 02:21:00 < 20 (CONSIST ENT) ng/mL 20.0 Final Performed by:[facility] (1) 9-Xpvdh-Pphvgmkttc 02:21:00 < 40 (CONSIST ENT) ng/mL 40.0 Final Performed by:[facility] (1) Nordiazepam 02:21:00 < 20 (CONSIST ENT) ng/mL 20.0 Final Performed by:[facility] (1) Temazepam 02:21:00 < 20 (CONSIST ENT) ng/mL 20.0 Final Performed by:[facility] (1) Lorazepam 02:21:00 < 20 (CONSIST ENT) ng/ml 20.0 Final Performed by:[facility] (1) Amphetamine 02:21:00 < 50 (CONSIST ENT) ng/mL 50.0 Final Performed by:[facility] (1) Methamphetamine 02:21:00 < 50 (CONSIST ENT) ng/mL 50.0 Final Performed by:[facility] (1) Methylphenidate 02:21:00 < 40 (CONSIST ENT) ng/mL 40.0 Final Performed by:[facility] (1) MDMA 02:21:00 < 50 (CONSIST ENT) ng/mL 50.0 Final Performed by:[facility] (1) Buprenorphine 02:21:00 < 10 (CONSIST ENT) ng/mL 10.0 Final Performed by:[facility] (1) Norbuprenorphine 02:21:00 < 40 (CONSIST ENT) ng/mL 40.0 Final Performed by:[facility] (1) Naloxone 02:21:00 < 20 (CONSIST ENT) ng/mL 20.0 Final Performed by:[facility] (1) Propoxyphene 02:21:00 < 20 (CONSIST ENT) ng/mL 20.0 Final Performed by:[facility] (1) EDDP 02:21:00 < 20 (CONSIST ENT) ng/mL 20.0 Final Performed by:[facility] (1) Carisoprodol 02:21:00 < 50 (CONSIST ENT) ng/mL 50.0 Final Performed by:[facility] (1) Meprobamate 02:21:00 < 50 (CONSIST ENT) ng/mL 50.0 Final Performed by:[facility] (1) Zolpidem 02:21:00 < 20 (CONSIST ENT) ng/mL 20.0 Final Performed by:[facility] (1) Codeine 02:21:00 < 50 (CONSIST ENT) ng/mL 50.0 Final Performed by:[facility] (1) Morphine 02:21:00 > 800 (CONSIST ENT) ng/mL 20.0 Final Performed by:[facility] (1) Hydrocodone 02:21:00 210.5 (CONSIST ENT) ng/mL 20.0 Final Performed by:[facility] (1) Hydromorphone 02:21:00 < 20 (INCONSI STENT) ng/mL 20.0 A Final Performed by:[facility] (1) Oxycodone 02:21:00 < 50 (CONSIST ENT) ng/mL 50.0 Final Performed by:[facility] (1) Oxymorphone 02:21:00 < 20 (CONSIST ENT) ng/mL 20.0 Final Performed by:[facility] (1) Norfentanyl 02:21:00 < 20 (CONSIST ENT) ng/mL 20.0 Final Performed by:[facility] (1) 6-Acetyl Morphine 02:21:00 < 20 (CONSIST ENT) ng/mL 20.0 Final Performed by:[facility] (1) Phencyclidine 02:21:00 < 20 (CONSIST ENT) ng/mL 20.0 Final Performed by:[facility] (1) Ketamine 02:21:00 < 40 (CONSIST ENT) ng/mL 40.0 Final Performed by:[facility] (1) Benzoylecgonine(Co c Met) 02:21:00 < 10 (CONSIST ENT) ng/ml 20.0 Final Performed by:[facility] (1) Nortriptyline 02:21:00 < 50 (CONSIST ENT) ng/mL 50.0 Final Performed by:[facility] (1) Amtriptyline 02:21:00 < 50 (CONSIST ENT) ng/mL 50.0 Final Performed by:[facility] (1) Fentanyl 02:21:00 < 10 (CONSIST ENT) ng/mL 10.0 Final Performed by:[facility] (1) Norfentanyl 02:21:00 < 20 (CONSIST ENT) ng/mL 20.0 Final Performed by:[facility] (1) LSD 02:21:00 < 10 (CONSIST ENT) ng/ml 10.0 Final Performed by:[facility] (1) O Desmethyl Cis Tramadol 02:21:00 < 50 (CONSIST ENT) ng/ml 50.0 Final Performed by:[facility] (1) Zolpidem 02:21:00 < 20 (CONSIST ENT) ng/mL 20.0 Final Performed by:[facility] (1) Tapentadol 02:21:00 < 40 (CONSIST ENT) ng/mL 40.0 Final Performed by:[facility] (1) Pregabalin 02:21:00 < 50 (CONSIST ENT) ng/mL 50.0 Final Performed by:[facility] (1) Panel Description: URINE DRUG SCREEN Final Image UDT 2 AMPHETAMINE 02:21:00 -84 (Negativ e) ng/mL 0 Final Performed by:[facility] (1) BARBITURATES 02:21:00 -92 (Negativ e) ng/mL 0 Final Performed by:[facility] (1) COCAINE 02:21:00 -101 (Negativ e) ng/mL 0 Final Performed by:[facility] (1) METHADONE 02:21:00 -100 (Negativ e) ng/mL 0 Final Performed by:[facility] (1) OPIATES 02:21:00 353 (Positiv e) ng/mL 0 A Final Performed by:[facility] (1) BENZODIAZEPINES 02:21:00 -101 (Negativ e) ng/mL 0 Final Performed by:[facility] (1) PHENCYCLIDINE - PCP 02:21:00 -105.00 (Negativ e) ng/mL 0.00 Final Performed by:[facility] (1) CANNABINOIDS - THC - MARIJUANA 02:21:00 102 (Positiv e) ng/mL 0 A Final Performed by:[facility] (1) FENTANYL 02:21:00 -97.00 (Negativ e) 0.00 Final Cutoff 2ng/mLPerf ormed by:[facility] (1) OXYCODONE 02:21:00 -95 (Negativ e) ng/mL 0 Final Performed by:[facility] (1) ETHYL ALCOHOL 02:21:00 1 (Negativ e) mg/dL 100 Final Performed by:[facility] (1) URINE SPECIFIC GRAVITY 02:21:00 1.016 (Accepta ble) 1.003 - 1.035 Final Performed by:[facility] (1) URINE PH 02:21:00 5.3 (Accepta ble) 4.4 - 9.0 Final Performed by:[facility] (1) URINE CREATININE 02:21:00 161 (Accepta ble) mg/dL 20 - 400 Final Performed by:[facility] (1) Advance Directives Directive Yes / No Effective Date File Name No Information Encounters Encounter Description Practice Location Reason(s) For Visit Diagnoses Date Provider Providers Copied on Encounter OFFICE/OUTPA TIENT VISIT, EST [facility], [address] [place] [address], [id number] , [place] tel:[phone] [facility] low back pain (chief complaint) Chronic pain syndromePADRadiculo ramy, lumbar regionPain in right handPain in right footLong term (current) use of opiate analgesicEncounter for therapeutic drug level monitoring 4 Fifi Li. [address] [place] [address] [place], [place], [id number] , [place]. tel:[phone] Referring Provider: Darby Ramirez [address], [address]. tel:[phone] OFFICE/OUTPA TIENT VISIT, EST [facility], [address] [place] [address], [id number] , [place] tel:[phone] [facility] low back pain (chief complaint) Chronic pain syndromePADRadiculo ramy, lumbar regionPain in right handPain in right footLong term (current) use of opiate analgesic Feb-2 - 4 Nyongesa Sandy. [address] [facility] [address], [place], [place], [id number] , [place]. tel:[phone] Referring Provider: [facility] [address], [address]. tel:[phone] OFFICE/OUTPA TIENT VISIT, [facility], [address] [place] [address], [id number] , [place] tel:[phone] [facility] low back pain (chief complaint) Chronic pain syndromePADRadiculo ramy, lumbar regionPain in right handPain in right footLong term (current) use of opiate analgesic Eric-2 4 Nyongesa Sandy. [address] [address], [place], [place], [id number] , [place]. tel:[phone] Referring Provider: Darby Ramirez [facility] [address], [address]. tel:[phone] OFFICE/OUTPA TIENT VISIT, [facility], [address] [place] [address], [id number] , [place] tel:[phone] [facility] low back pain (chief complaint) Chronic pain syndromePADRadiculo ramy, lumbar regionPain in right handPain in right footLong term (current) use of opiate analgesic Eric-0 4 Kyongesa Sandy. [address], [place], [place], [id number] , [place]. tel:[phone] Referring Provider: Darby Ramirez [address], [address]. tel:[phone] OFFICE/OUTPA TIENT VISIT, [facility], [address] [place] [address], [id number] , [place] tel:[phone] [facility] low back pain (chief complaint) Chronic pain syndromePADRadiculo ramy, lumbar regionPain in right handPain in right footLong term (current) use of opiate analgesicEncounter for therapeutic drug level monitoring 0 - 4 Nyongesa Sandy. [address], [place], [id number] , [place]. tel:[phone] Referring Provider: Darby Ramirez [address], [address]. tel:[phone] [facility], [address] [place] [address], [id number] , [place] tel:[phone] [facility] No Information 4 Nyongesa Sandy. [address], [place], [id number] , [place]. tel:[phone] OFFICE/OUTPA TIENT VISIT, EST [facility], [address] [place] [address], [id number] , [place] tel:[phone] [facility] low back pain (chief complaint) Chronic pain syndromePADRadiculo ramy, lumbar regionPain in right handPain in right footLong term (current) use of opiate analgesic Nov-0 4 Nyongesa Sandy. [address], [place], [id number] , [place]. tel:[phone] Referring Provider: Darby Ramirez [address], [address]. tel:[phone] OFFICE/OUTPA TIENT VISIT, EST [facility], [address] [place] [address], [id number] , [place] tel:[phone] [facility] low back pain (chief complaint) Chronic pain syndromePADRadiculo ramy, lumbar regionPain in right handPain in right footLong term (current) use of opiate analgesic Oct-0 - 4 Nyongesa Sandy. [address] [address], [place], [place], [id number] , [place]. tel:[phone] Referring Provider: Ac Ortiz[address], [address]. tel:[phone] OFFICE/OUTPA TIENT VISIT, [facility], [address] [place] [address], [id number] , [place] tel:[phone] [facility] low back pain (chief complaint) Chronic pain syndromePADRadiculo ramy, lumbar regionPain in right handPain in right footLong term (current) use of opiate analgesic Sep-0 4 [facility]. [address] [place] [address], [place], [place], [id number] , [place]. tel:[phone] Referring Provider: Darby Ramirez [address], [address]. tel:[phone] OFFICE/OUTPA TIENT VISIT, [facility], [address] [place] [address], [id number] , [place] tel:[phone] [facility] low back pain (chief complaint) Chronic pain syndromePADRadiculo ramy, lumbar regionPain in right handPain in right footLong term (current) use of opiate analgesic Aug- 4 [facility]. [address] [place] [address], [place], [place], [id number] , [place]. tel:[phone] Referring Provider: Darby Ramirez [address], [address]. tel:[phone] OFFICE/OUTPA TIENT VISIT, [facility], [address] [place] [address], [id number] , [place] tel:[phone] [facility] low back pain (chief complaint) Chronic pain syndromePADRadiculo ramy, lumbar regionPain in right handPain in right footLong term (current) use of opiate analgesicEncounter for therapeutic drug level monitoring 3 [facility]. [address], [place], [place], [id number] , [place]. tel: [phone] Referring Provider: [facility] [address], [address]. tel:[phone] [facility], [address] [place] [address], [id number] , [place] tel: [phone] [facility] [place] No Information 3 Dante Delgado. [address] [facility] [address], [place], [id number] , [place]. tel: [phone] OFFICE/OUTPA TIENT VISIT, [facility], [address] [place] [address], [id number] , [place] tel: [phone] [facility] low back pain (chief complaint) Chronic pain syndromePADRadiculo ramy, lumbar regionPain in right footLong term (current) use of opiate analgesicPain in right hand Jun- 3 Dante Delgado. [address] [address], [place], [place], [id number] , [place]. tel: [phone] Referring Provider: [facility] [address], [address]. tel:[phone] OFFICE/OUTPA TIENT VISIT, [facility], [address] [place] [address], [id number] , [place] tel: [phone] [facility] low back pain (chief complaint) Chronic pain syndromePADRadiculo ramy, lumbar regionPain in right footPain in left footLong term (current) use of opiate analgesic May- 3 Dante Delgado. [address] [place] [address], [place], [place], [id number] , [place]. tel: [phone] Referring Provider: Darby Ramirez [facility] [address], [address]. tel:[phone] OFFICE/OUTPA TIENT VISIT, [facility], [address] [place] [address], [id number] , [place] tel:[phone] [facility] low back pain (chief complaint) Chronic pain syndromePADRadiculo ramy, lumbar regionLong term (current) use of opiate analgesicEncounter for therapeutic drug level monitoringPain in right footPain in left foot Sep-0 7 3 [facility]. [address] [place] [address], [place], [place], [id number] , [place]. tel:[phone] Referring Provider: Darby Ramirez [address], [address]. tel:[phone] [facility], [address] [place] [address], [id number] , [place] tel:[phone] [facility] No Information Sep-0 7 3 [facility]. [address] [place] [address], [place], [place], [id number] , [place]. tel:[phone] OFFICE/OUTPA TIENT VISIT, EST [facility], [address] [place] [address], [id number] , [place] tel:[phone] [facility] low back pain (chief complaint) Chronic pain syndromePADPain in right hipPain in left hipSacroiliitis, not elsewhere classifiedRadiculop athy, lumbar regionPain in right handLong term (current) use of opiate analgesic Aug-0 3 [facility]. [address] [place] [address], [place], [place], [id number] , [place]. tel:[phone] Referring Provider: Darby Ramirez [address], [address]. tel:[phone] OFFICE/OUTPA TIENT VISIT, EST [facility], [address] [place] [address], [id number] , [place] tel:[phone] [facility] low back pain (chief complaint) Chronic pain syndromePADPain in right hipPain in left hipSacroiliitis, not elsewhere classifiedRadiculop athy, lumbar regionPain in right handLong term (current) use of opiate analgesic 3 Nyongesa Sandy. [address] [facility] [address], [place], [place], [id number] , [place]. tel:[phone] Referring Provider: Darby Ramirez [address], [address]. tel:[phone] OFFICE/OUTPA TIENT VISIT, EST [facility], [address] [place] [address], [id number] , [place] tel:[phone] [facility] low back pain (chief complaint) Chronic pain syndromePADPain in right hipPain in left hipSacroiliitis, not elsewhere classifiedRadiculop athy, lumbar regionPain in right handLong term (current) use of opiate analgesic 3 Nyongesa Sandy. [address] [facility] [address], [place], [id number] , [place]. tel:[phone] Referring Provider: Darby Ramirez [address], [address]. tel:[phone] OFFICE/OUTPA TIENT VISIT, EST [facility], [address] [place] [address], [id number] , [place] tel:[phone] [facility] low back pain (chief complaint) Chronic pain syndromePADPain in right hipPain in left hipSacroiliitis, not elsewhere classifiedRadiculop athy, lumbar regionPain in right handLong term (current) use of opiate analgesicEncounter for therapeutic drug level monitoring 3 Nyongesa Sandy. [address] [facility] [address], [place], [place], [id number] , [place]. [phone] Referring Provider: Darby Ramirez [address], [address]. tel:[phone] OFFICE/OUTPA TIENT VISIT, [facility], [address] [place] [address], [id number] , [place] tel:[phone] [facility] low back pain (chief complaint) Chronic pain syndromePADSacroili itis, not elsewhere classifiedRadiculop athy, lumbar regionPain in right handLong term (current) use of opiate analgesicPain in right hipPain in left hip 3 Nyongesa Sandy. [address] [facility] [address], [place], [place], [id number] , [place]. tel:[phone] Referring Provider: Jenni Ortiz [facility] [address] [place], [address]. tel:[phone] [facility], [address] [place] [address], [id number] , [place] tel: [phone] [facility] [place] No Information 3 Diogo Dey. [address] [place], [place], [id number] , [place]. tel:[phone] OFFICE/OUTPA TIENT VISIT, EST [facility], [address] [place] [address], [id number] , [place] tel: [phone] [facility] low back pain (chief complaint) Chronic pain syndromePADSacroili itis, not elsewhere classifiedRadiculop athy, lumbar regionPain in right handLong term (current) use of opiate analgesic 3 Nyongesa Sandy. [address] [facility] [address], [facility] [place], [id number] , [place]. tel:[phone] Referring Provider: Darby Ramirez [address], [address]. tel:[phone] OFFICE/OUTPA TIENT VISIT, EST [facility], [address] [place] [address], [id number] , [place] tel:[phone] [facility] low back pain (chief complaint) Chronic pain syndromePADSacroili itis, not elsewhere classifiedRadiculop athy, lumbar regionPain in right handLong term (current) use of opiate analgesic 3 Arpitaongesa Sandy. [address] [facility] [address], [place], [place], [id number] , [place]. tel:[phone] Referring Provider: Darby Ramirez [address], [address]. tel:[phone] OFFICE/OUTPA TIENT VISIT, [facility], [address] [place] [address], [id number] , [place] [phone] [facility] low back pain (chief complaint) Chronic pain syndromePADSacroili itis, not elsewhere classifiedRadiculop athy, lumbar regionPain in right handLong term (current) use of opiate analgesicEncounter for therapeutic drug level monitoring 3 [facility]. [address] [place] [address] [address], [place], [place], [id number] , [place]. [phone] Referring Provider: Darby Ramirez [address], [address]. tel:[phone] [facility], [address] [place] [address], [id number] , [place] [phone] [facility] No Information 3 [facility]. [address] [place] [address] Rd [address], [place], [place], [id number] , [place]. tel:[phone] Referring Provider: Darby Ramirez [address] [address], [address]. tel:[phone] OFFICE/OUTPA TIENT VISIT, [facility], [address] [place] [address], [id number] , [place] [phone] [facility] low back pain (chief complaint) Chronic pain syndromePADRadiculo ramy, lumbar regionPain in right handLong term (current) use of opiate analgesicSacroiliit is, not elsewhere classified 3 Nybentonsa Sandy. [id number] [place] [address] [address], [place], [place], [id number] , [place]. [phone] Referring Provider: Darby Ramirez [address], [address]. tel:[phone] OFFICE/OUTPA TIENT VISIT, [facility], [address] [place] [address], [id number] , [place] tel:[phone] [facility] low back pain (chief complaint) Chronic pain syndromePADRadiculo ramy, lumbar regionPain in right handLong term (current) use of opiate analgesic 2 Nyongesa Sandy. [address] [facility] [address], [place], [place], [id number] , [place]. tel:[phone] Referring Provider: Darby Ramirez [address], [address]. tel:[phone] [facility], [address] [place] [address], [id number] , [place] tel:[phone] [facility] Radiculopathy, lumbar region 2 Henrietta Mariee. [address] [place] [address], [id number] , [place]. tel:[phone] Referring Provider: Darby Ramirez [address], [address]. tel:[phone] OFFICE/OUTPA TIENT VISIT, [facility], [address] [place] [address], [id number] , [place] [phone] [facility] low back pain (chief complaint) Chronic pain syndromePADRadiculo ramy, lumbar regionPain in right handLong term (current) use of opiate analgesic 2 Nyongesa Sandy. [address], [facility], [place], [id number] , [place]. tel:[phone] Referring Provider: Darby Ramirez [address], [address]. tel:[phone] OFFICE/OUTPA TIENT VISIT, [facility], [address] [place] [address], [id number] , [place] tel:[phone] [facility] low back pain (chief complaint) Chronic pain syndromePADRadiculo ramy, lumbar regionPain in right handLong term (current) use of opiate analgesic Nov-0 2 Kyjerri Delgado. [id number] [place] [address], [place], [place], [id number] , [place]. tel:[phone] Referring Provider: Darby Ramirez [address], [address]. tel:[phone] OFFICE/OUTPA TIENT VISIT, [facility], [address] [place] [address], [id number] , [place] tel:[phone] [facility] low back pain (chief complaint) Chronic pain syndromePADRadiculo ramy, lumbar regionPain in right handLong term (current) use of opiate analgesicEncounter for therapeutic drug level monitoring Oct-0 [address]gado[address] [place] [address], [place], [place], [id number] , [place]. tel:[phone] Referring Provider: Darby Ramirez [address], [address]. tel:[phone] [facility], [address] [place] [address], [id number] , [place] tel:[phone] [facility] No Information May-0 2 Kyjerri Delgado. [id number] [place] [address], [place], [place], [id number] , [place]. tel:[phone] Referring Provider: Darby Ramirez [address], [address]. tel:[phone] OFFICE/OUTPA TIENT VISIT, [facility], [address] [place] [address], [id number] , [place] [phone] [facility] low back pain (chief complaint) Chronic pain syndromePADRadiculo ramy, lumbar regionPain in right handLong term (current) use of opiate analgesicEncounter for screening for other disorder Sep-0 - 2 Dante Delgado. [address] [facility] 11 [facility] [address], [place], [id number] , [place]. tel:[phone] Referring Provider: Darby Ramirez [address], [address]. tel:[phone] OFFICE/OUTPA TIENT VISIT, [facility], [address] [place] [address], [id number] , [place] tel:[phone] [facility] low back pain (chief complaint) Chronic pain syndromeRadiculopat hy, lumbar regionPain in right handLong term (current) use of opiate analgesicPAD 2 Dante Delgado. [address] [place] [address], [place], [place], [id number] , [place]. tel:[phone] Referring Provider: Darby Ramirez [address], [address]. tel:[phone] [facility], [address] [place] [address], [id number] , [place] tel:[phone] [facility] No Information 2 Dante Delgado. [address] [place] [address], [place], [id number] , [place]. tel:[phone] Referring Provider: Tiburcio Montes, [address] [place], [place] [address], [address] . tel:[phone] OFFICE/OUTPA TIENT VISIT, [facility], [address] [place] [address], [id number] , [place] tel: [phone] [facility] low back pain (chief complaint) Chronic pain syndromeRadiculopat hy, lumbar regionPain in right handUnspecified Housing or Economic ProblemLong term (current) use of opiate analgesic 2 Nyongesa Delgado. [address] [place] [address] 11 [facility] 100, [place], [id number] , [place]. tel:[phone] Referring Provider: Darby Detert, [address], [address]. tel:[phone] OFFICE/OUTPA TIENT VISIT, [facility], [address] [place] [address], [id number] , [place] tel: [phone] [facility] low back pain (chief complaint) Chronic pain syndromeRadiculopat hy, lumbar regionPain in right handUnspecified Housing or Economic ProblemLong term (current) use of opiate analgesic Eric-0 - 2 Nyongesa Sandy. [address] [place] [address], [place], [place], [id number] , [place]. tel: [phone] Referring Provider: Darby Ramirez [address], [address]. tel:[phone] OFFICE/OUTPA TIENT VISIT, [facility], [address] [place] [address], [id number] , [place] tel: [phone] [facility] low back pain (chief complaint) Chronic pain syndromeRadiculopat hy, lumbar regionPain in right handLong term (current) use of opiate analgesicUnspecifie d Housing or Economic Problem May-0 2 Nyongesa Sandy. [address] [place] [address], [id number] , [place]. tel: [phone] Referring Provider: Jenni Ortiz [address], [address]. tel:[phone] [facility], [address] [place] [address], [id number] , [place] tel: [phone] [facility] low back pain (chief complaint) Chronic pain syndromeRadiculopat hy, lumbar regionPain in right handLong term (current) use of opiate analgesic Apr-0 2 Nyongesa Sandy. [address] [place] [address], [id number] , [place]. tel: [phone] Referring Provider: Jenni Ortiz [facility] [address], [address]. tel:[phone] [facility], [address] [place] [address], [id number] , [place] tel:[phone] [facility] No Information 2 Kyjerri Delgado. [address] [facility] [address], [place], [id number] , [place]. tel:[phone] Referring Provider: Tiburcio Montes, [address] [place] [address] [place], [place] [address], [address] . tel:[phone] OFFICE/OUTPA TIENT VISIT, [facility], [address] [place] [address], [id number] , [place] tel: [phone] [facility] low back pain (chief complaint) Pain in right handLong term (current) use of opiate analgesicChronic pain syndromeRadiculopat hy, lumbar regionEncounter for therapeutic drug level monitoring 2 Bannersa Delgado. [address] [place] [address], [place], [id number] , [place]. tel: [phone] Referring Provider: Ac [facility] [address], [address]. tel:[phone] OFFICE/OUTPA TIENT VISIT, [facility], [address] [place] [address], [id number] , [place] tel: [phone] [facility] low back pain (chief complaint) Pain in right handLong term (current) use of opiate analgesicChronic pain syndromeRadiculopat hy, lumbar region 1 [address]gado[address] [place] [address] 11 [facility] 100, [place], [id number] , [place]. tel:[phone] Referring Provider: Darby Ramirez [address], [address]. tel:[phone] OFFICE/OUTPA TIENT VISIT, [facility], [address] [place] [address], [id number] , [place] tel: [phone] [facility] low back pain (chief complaint) Pain in right handLong term (current) use of opiate analgesicChronic pain syndromeRadiculopat hy, lumbar region May- 1 Tiffany Sandy. [address] [facility] 11 [facility] 100, [place], [place], [id number] , [place]. [phone] Referring Provider: Darby Ramirez [address], [address]. tel:[phone] OFFICE/OUTPA TIENT VISIT, [facility], [address] [place] [address], [id number] , [place] tel:[phone] [facility] low back pain (chief complaint) Radiculopathy, lumbar regionPain in right handLong term (current) use of opiate analgesicChronic pain syndrome Sep-0 1 Tiffany Sandy. [address] [address], [place], [place], [id number] , [place]. [phone] Referring Provider: Darby Ramirez [address], [address]. tel:[phone] OFFICE/OUTPA TIENT VISIT, [facility], [address] [place] [address], [id number] , [place] [phone] [facility] low back pain (chief complaint) Radiculopathy, lumbar regionPain in right handLong term (current) use of opiate analgesicChronic pain syndrome 1 Arpitaongesa eDlgado. [address] [address], [place], [place], [id number] , [place]. tel:[phone] Referring Provider: Darby Ramirez [address], [address]. tel:[phone] [facility], [address] [place] [address], [id number] , [place] tel:[phone] [facility] No Information 1 Nyongesa Sandy. [address] [facility] [address], [place], [id number] , [place]. [phone] Referring Provider: Tiburcio Montes, [address] [facility] [place], [address] . tel:[phone] OFFICE/OUTPA TIENT VISIT, [facility], [address] [facility] [place], [id number] , [place] [phone] [facility] [place] low back pain (chief complaint) hand pain right (chief complaint) Chronic pain syndromeEncounter for screening for other disorderRadiculopat hy, lumbar regionPain in right handEncounter for therapeutic drug level monitoringLong term (current) use of opiate analgesic Dante Delgado [address] [facility] 11 [facility] 100, [place], [id number] , [place]. tel:[phone] Referring Provider: Darby Ramirez [address], [address]. tel:[phone] Family History Family Member Type Diagnosis Age At Onset No Information Payers Payer name Insurance type Covered alliance party ID Khanh onofre(s) AARP MedicareComplete Replacement [id number] Social History Type Description Quantity Date Captured Comments Alcohol Use Details Unknown Caffeine Use Details Unknown Tobacco Use Status Smoking Status No Information Sex Male Chief Complaint And Reason For Visit From encounter dated 04/15/2024 09:00'. low back pain (chief complaint). Description: Severity level is 9. Duration: chronic. The problem is worsening. Symptoms are aggravated by ascending stairs, daily activities, descending stairs, lifting, standing, walking, rising from sitting and movement. Symptoms are relieved by heat, pain meds/drugs and changing positions. Reason For Referral Reason For Referral No Information Plan Of Treatment Date Type Action Status Goal ALT (SGPT). Due on due Goal UDT. Due on due Goal Creatinine. Due on due Goal CT-Colonography. Due on due Goal Lipid panel. Due on due Goal Zoster vaccine ( 1st). Due on due Goal Weight. Due on d ue Goal Update Social Hi story. Due on due Goal Review Allergy L ist. Due on due Goal Tobacco Use. Due on due Goal Medication Recon ciliation. [...] Order Annual PT. Due on due Goal JIG BUILDER Paperwork. Due on due Goal KEY FILER Scanned. Due on due Goal Creatinine. Due on due Goal Lipid panel. Due on due Goal KEY FILER Scanned. Due on due Goal OARS. Due on due Goal AST (SGOT). Due on due Goal ALT (SGPT). Due on due Goal Order Annual PT. Due on due Goal JIG BUILDER Paperwork. Due on due Goal UDT. Due on due Goal Weight. Due on d ue Goal Hepatitis C scre ening. Due on due Goal FIT. Due on due Goal Height. Due on d ue Goal PHQ-9. Due on du e Goal FIT-DNA. Due on due Goal Update Social Hi story. Due on due Goal Review Allergy L ist. Due on due Goal Medication Recon ciliation. Due on due Goal Tobacco Use. Due on 022 due Goal Zoster vaccine ( 1st). Due on due Goal Unhealthy drug u se screening. Due on due Goal CT-Colonography. Due on due Goal OARS. Due on due Goal FIT-DNA. Due on due Goal JIG BUILDER Paperwork. Due on due Goal ALT (SGPT). Due on due Goal AST (SGOT). Due on due Goal UDT. Due on due Goal Order Annual PT. Due on due Goal Creatinine. Due on due Goal KEY FILER Scanned. Due on due Goal Zoster vaccine ( 1st). Due on due Goal Update Social Hi story. Due on due Goal FIT. Due on due Goal Tobacco Use. Due on due Goal Medication Recon ciliation. [...] u se screening. Due on due Goal Lifestyle educat ion regarding diet completed Goal Creatinine. Due on due Goal Hepatitis C scre ening. Due on due Goal AST (SGOT). Due on due Goal ALT (SGPT). Due on due Goal UDT. Due on due Goal Order Annual PT. Due on due Goal OARS. Due on due Goal JIG BUILDER Paperwork. Due on due Goal KEY FILER Scanned. Due on due Goal Unhealthy drug u se screening. Due on due Goal Medication Recon ciliation. Due on due Goal Update Social Hi story. Due on due Goal FIT. Due on due Goal Zoster vaccine ( 1st). Due on due Goal CT-Colonography. Due on due Goal Lipid panel. Due on due Goal Height. Due on d ue Goal PHQ-9. Due on du e Goal Tobacco Use. Due on due Goal FIT-DNA. Due on due Goal Review Allergy L ist. Due on due Goal Weight. Due on d ue Goal OARS. Due on due Goal FIT. Due on due Goal AST (SGOT). Due on due Goal Order Annual PT. Due on due Goal JIG BUILDER Paperwork. Due on due Goal KEY FILER Scanned. Due on due Goal Creatinine. Due [...] ue Goal FIT. Due on due Goal FIT-DNA. Due on due Goal Update Social Hi story. Due on due Goal PHQ-9. Due on du e Goal Lipid panel. Due on due Goal JIG BUILDER Paperwork. Due on due Goal KEY FILER Scanned. Due on due Goal AST (SGOT). [...] vaccine ( ). Due on due Goal Creatinine. Due on due Goal Medication Recon ciliation. Due on due Goal KEY FILER Scanned. Due on due Goal JIG BUILDER Paperwork. Due on due Goal AST (SGOT). [...] u se screening. Due on due Goal KEY FILER Scanned. Due on due Goal ALT (SGPT). Due on due Goal Creatinine. Due on due Goal UDT. Due on due Goal JIG BUILDER Paperwork. Due on due Goal OARS. Due [...] Goal AST (SGOT). Due on due Goal Zoster vaccine ( 1st). Due on due Goal OARS. Due on due Goal UDT. Due on due Goal KEY FILER Scanned. Due on due Goal ALT (SGPT). Due on due Goal Order Annual PT. Due on due Goal Creatinine. Due on due Goal JIG BUILDER Paperwork. Due on due Goal Tobacco Use. [...] on due Goal Lipid panel. Due on 024 due Goal JIG BUILDER Paperwork. Due on due Goal Unhealthy drug u se screening. Due on due Goal UDT. Due on due Goal AST (SGOT). Due on due Goal OARS. Due on due Goal Creatinine. Due on due Goal ALT (SGPT). Due on due Goal Order Annual PT. Due on due Goal KEY FILER Scanned. Due on due Goal PHQ-9. Due [...] vaccine ( ). Due on due Goal Lipid panel. Due on due Goal Hepatitis C scre ening. Due on due Goal PHQ-9. Due on du e Goal KEY FILER Scanned. Due on due Goal Order Annual PT. Due on due Goal ALT (SGPT). Due on due Goal Creatinine. Due on due Goal OARS. Due on due Goal AST (SGOT). Due on due Goal UDT. Due on due Goal JIG BUILDER Paperwork. Due on due Goal ALT (SGPT). [...] Goal Weight. Due on d ue Goal KEY FILER Scanned. Due on due Goal UDT. Due on due Goal JIG BUILDER Paperwork. Due on due Goal Order Annual PT. Due on due Goal OARS. Due on due Goal AST (SGOT). Due on due Goal CT-Colonography. Due on due Goal FIT-DNA. Due on due Goal Medication Recon ciliation. Due on due Goal KEY FILER Scanned. Due on due Goal Creatinine. Due on due Goal AST (SGOT). Due on due Goal Order Annual PT. Due on due Goal OARS. Due on due Goal ALT (SGPT). Due on due Goal JIG BUILDER Paperwork. Due on due Goal UDT. Due [...] Goal Lipid panel. Due on due Goal JIG BUILDER Paperwork. Due on due Goal Order Annual PT. Due on due Goal OARS. Due on due Goal KEY FILER Scanned. Due on due Goal UDT. Due on due Goal ALT (SGPT). Due on due Goal Creatinine. Due on due Goal Tobacco Use. Due on 022 due Goal Unhealthy drug u se screening. [...] Medication Recon ciliation. Due on due Goal JIG BUILDER Paperwork. Due on due Goal ALT (SGPT). Due on due Goal AST (SGOT). Due on due Goal KEY FILER Scanned. Due on 023 due Goal Creatinine. [...] vaccine ( ). Due on due Goal JIG BUILDER Paperwork. Due on due Goal Review Allergy [...] Order Annual PT. Due on due Goal KEY FILER Scanned. Due on due Goal Creatinine. Due on due Goal OARS. Due on due Goal Medication Recon ciliation. Due on due Goal Tobacco Use. Due on due Goal Lipid panel. Due on due Goal FIT. Due on due Goal Weight. Due on d ue Goal OARS. Due on due Goal Medication Recon ciliation. Due on due Goal KEY FILER Scanned. Due on due Goal Creatinine. Due on due Goal JIG BUILDER Paperwork. Due on due Goal ALT (SGPT). [...] Goal AST (SGOT). Due on due Goal JIG BUILDER Paperwork. Due on due Goal Order Annual PT. Due on due Goal Hepatitis C scre ening. Due on due Goal CT-Colonography. Due on due Goal Tobacco Use. Due on due Goal Update Social Hi story. Due on due Goal Unhealthy drug u se screening. Due on due Goal KEY FILER Scanned. Due on 023 due Goal OARS. Due on due Goal [...] vaccine ( 1st). Due on due Goal JIG BUILDER Paperwork. Due on due Goal Creatinine. Due on due Goal Order Annual PT. Due on due Goal AST (SGOT). Due on due Goal OARS. Due on due Goal UDT. Due on due Goal KEY FILER Scanned. Due on due Goal ALT (SGPT). [...] C scre ening. Due on due Goal KEY FILER Scanned. Due on due Goal ALT (SGPT). Due on due Goal UDT. Due on due Goal OARS. Due on due Goal Order Annual PT. Due on due Goal Creatinine. Due on due Goal JIG BUILDER Paperwork. Due on due Goal CT-Colonography. Due [...] Tobacco Use. Due on 022 due Goal Tobacco cessation counseling completed Goal UDT. Due on due Goal FIT. Due on due Goal Order Annual PT. Due on due Goal JIG BUILDER Paperwork. Due on due Goal OARS. Due on due Goal AST (SGOT). Due on due Goal ALT (SGPT). Due on due Goal Creatinine. Due on due Goal KEY FILER Scanned. Due on due Goal Zoster vaccine [...] Goal Tobacco Use. Due on due Goal Creatinine. Due on due Goal OARS. Due on due Goal JIG BUILDER Paperwork. Due on due Goal ALT (SGPT). Due on due Goal AST (SGOT). Due on due Goal Order Annual PT. Due on due Goal UDT. Due on due Goal KEY FILER Scanned. Due on due Goal FIT-DNA. Due [...] Goal AST (SGOT). Due on due Goal JIG BUILDER Paperwork. Due on due Goal Order Annual PT. Due on due Goal KEY FILER Scanned. Due on due Goal Creatinine. Due on due Goal Review Allergy L ist. Due on due Goal Unhealthy drug u se screening. Due on due Goal Height. Due on d ue Goal Update Social Hi story. Due on due Goal CT-Colonography. Due on due Goal Tobacco Use. Due on due Goal Zoster vaccine ( ). Due on due Goal Lipid panel. Due on due Goal FIT. Due on due Goal Weight. Due on d ue Goal PHQ-9. Due on du e Goal Hepatitis C scre ening. Due on due Goal FIT-DNA. Due on due Goal Medication Recon ciliation. Due on due Goal OARS. Due on due Goal UDT. Due on due Goal JIG BUILDER Paperwork. Due on due Goal AST (SGOT). Due on due Goal ALT (SGPT). Due on due Goal Zoster vaccine ( ). Due on due Goal Order Annual PT. Due on due Goal KEY FILER Scanned. Due on due Goal Creatinine. Due [...] Allergy L ist. Due on due Goal KEY FILER Scanned. Due on due Goal Tobacco Use. Due on due Goal JIG BUILDER Paperwork. Due on due Goal ALT (SGPT). [...] Allergy L ist. Due on due Goal Creatinine. Due on due Goal JIG BUILDER Paperwork. Due on due Goal PHQ-9. Due [...] Order Annual PT. Due on due Goal KEY FILER Scanned. Due on due Goal PHQ-9. Due on du e Goal Medication Recon ciliation. Due on due Goal CT-Colonography. Due on due Goal Height. Due on d ue Goal Lipid panel. Due on due Goal Weight. Due on d ue Goal Unhealthy drug u se screening. Due on due Goal FIT-DNA. Due on due Goal ALT (SGPT). Due on due Goal KEY FILER Scanned. Due on due Goal OARS. Due on due Goal JIG BUILDER Paperwork. Due on due Goal AST (SGOT). [...] due Goal OARS. Due on due Goal JIG BUILDER Paperwork. Due on due Goal KEY FILER Scanned. Due on due Goal Creatinine. Due on due Goal AST (SGOT). Due on due Goal ALT (SGPT). Due on due Goal Height. Due on d ue Goal Lipid panel. Due on due Goal Height. Due on d ue Goal PHQ-9. Due on du e Goal KEY FILER Scanned. Due on due Goal JIG BUILDER Paperwork. Due on due Goal Order Annual [...] Goal ALT (SGPT). Due on due Goal JIG BUILDER Paperwork. Due on due Goal KEY FILER Scanned. Due on due Goal Lipid panel. [...] Goal ALT (SGPT). Due on due Goal JIG BUILDER Paperwork. Due on due Goal AST (SGOT). Due on due Goal OARS. Due on due Goal KEY FILER Scanned. Due on due Goal Order Annual PT. Due on due Goal Medication Recon ciliation. Due on due Goal Height. Due on d ue Goal Unhealthy drug u se screening. Due on due Goal Review Allergy L ist. Due on due Goal ALT (SGPT). Due on due Goal Order Annual PT. Due on due Goal KEY FILER Scanned. Due on due Goal Height. Due [...] due Goal OARS. Due on due Goal JIG BUILDER Paperwork. Due on due Goal Creatinine. Due on due Goal Lipid panel. Due on due Goal CT-Colonography. Due on due Goal Review Allergy L ist. Due on due Goal UDT. Due on due Goal JIG BUILDER Paperwork. Due on due Goal OARS. Due on due Goal Order Annual PT. Due on due Goal AST (SGOT). Due on due Goal Creatinine. Due on due Goal ALT (SGPT). Due on due Goal KEY FILER Scanned. Due on due Goal Review Allergy L [...] u se screening. Due on due Goal FIT. Due on due Goal Lipid panel. Due on due Goal Zoster vaccine ( ). Due on due Goal UDT. Due on due Goal Creatinine. Due on due Goal ALT (SGPT). Due on due Goal KEY FILER Scanned. Due on due Goal Tobacco Use. Due on due Goal Update Social Hi story. Due on due Goal Height. Due on d ue Goal FIT-DNA. Due on due Goal Order Annual PT. Due on due Goal AST (SGOT). Due on due Goal OARS. Due on due Goal JIG BUILDER Paperwork. Due on due Goal CT-Colonography. Due [...] Order Annual PT. Due on due Goal KEY FILER Scanned. Due on due Goal JIG BUILDER Paperwork. Due on due Goal Review Allergy [...] due Goal OARS. Due on due Goal JIG BUILDER Paperwork. Due on due Goal KEY FILER Scanned. Due on due Goal Update Social Hi [...] vaccine ( ). Due on due Goal Order Annual PT. Due on due Goal OARS. Due on due Goal KEY FILER Scanned. Due on due Goal AST (SGOT). Due on due Goal JIG BUILDER Paperwork. Due on due Goal Creatinine. Due [...] due Goal Creatinine. Due on due Goal KEY FILER Scanned. Due on due Goal ALT (SGPT). Due on due Goal Order Annual PT. Due on due Goal OARS. Due on due Goal JIG BUILDER Paperwork. Due on due Goal UDT. Due on due Goal JIG BUILDER Paperwork. Due on due Goal UDT. Due [...] due Goal Creatinine. Due on due Goal KEY FILER Scanned. Due on due Goal ALT (SGPT). [...] Goal Weight. Due on d ue Goal Creatinine. Due on due Goal KEY FILER Scanned. Due on due Goal ALT (SGPT). Due on due Goal Order Annual PT. Due on due Goal OARS. Due on due Goal JIG BUILDER Paperwork. Due on due Goal Review Allergy [...] due Goal Creatinine. Due on due Goal KEY FILER Scanned. Due on due Goal ALT (SGPT). Due on due Goal Order Annual PT. Due on due Goal OARS. Due on due Goal JIG BUILDER Paperwork. Due on due Goal JIG BUILDER Paperwork. Due on due Goal UDT. Due [...] due Goal Creatinine. Due on due Goal KEY FILER Scanned. Due on due Goal ALT (SGPT). Due on due Goal Order Annual PT. Due on due Goal OARS. Due on due Goal ALT (SGPT). Due on due Goal Order Annual PT. Due on due Goal OARS. Due on due Goal JIG BUILDER Paperwork. Due on due Goal UDT. Due [...] due Goal Creatinine. Due on due Goal KEY FILER Scanned. Due on due Goal Order Annual PT. Due on due Goal JIG BUILDER Paperwork. Due on due Goal Creatinine. Due on due Goal ALT (SGPT). Due on due Goal KEY FILER Scanned. Due on due Goal UDT. Due on due Goal OARS. Due on due Goal AST (SGOT). Due on due Goal Update Social Hi story. Due on due Goal AST (SGOT). Due on due Goal Creatinine. Due on due Goal KEY FILER Scanned. Due on due Goal ALT (SGPT). Due on due Goal Order Annual PT. Due on due Goal OARS. Due on due Goal JIG BUILDER Paperwork. Due on due Goal UDT. Due [...] Tobacco Use. Due on 022 due Goal Weight. Due on d ue Goal Review Allergy L ist. Due on due Goal Update Social Hi story. Due on due Appointment Velasquez Abreu BOOKED Future Order: Radiology Order X Ray (CDIXR), Sent on: Sent History Of Present Illness Encounter Date Complaint History Of Prese nt Illness Comments: This i s my first evaluation of the patient who is routinely followed by my colleague Sandy Howell DNP.Velasquez is a 63 y/o male who presents for follow up and medication refill in the setting of chronic low back pain (R>L) with radiation into the posterior BLE d/t PAD as well as spinal stenosis. Pain has been worse this month. Notes he completed dental work a couple of days ago and continues to feel increased pain.Complains of L posterolateral leg pain, primarily in the lateral calf. Describes the pain as an ache with pain worsening with movement and rising from a sitting position. Previously stated he was surprised the pain was occurring in the L leg as pain is usually in the R leg. Still has yet to follow up with a interactive media marketing specialist to rule out any circulation issues but has an upcoming appointment on 04/17/24. Declines wanting to pursue any interventions for the low back or a spinal consultation until after he meets with his interactive media marketing specialist.Expresses concerns that he may have diabetes, as he has been urinating more frequently at night, he has blurred vision, and the bottoms of his feet are constantly burning. Also notes redness/rash at his right chest. Denies any prior chicken pox infection as a kid and has not had a shingles vaccine in the past d/t his fear of needles. Reports current medication provides 85% pain relief and allows for increased functionality. Continues to utilize MSER 15mg and [place] 5-325mg QID with significant benefit. Admits to using a few more of his opioid medications due to the increased pain. Presents w/o medications today. Denies OIC, which is managed with Colace, or other side effects from current medication regimen. No other concerns today. low back pain Severity level i s 9. Duration: chronic. The problem is worsening. Symptoms are aggravated by ascending stairs, daily activities, descending stairs, lifting, standing, walking, rising from sitting and movement. Symptoms are relieved by heat, pain meds/drugs and changing positions. low back pain Severity level i s 6. Duration: chronic. The problem is worsening. It occurs persistently. Symptoms are relieved by pain meds/drugs. Comments: Velasquez is a 63 y/o male who presents for follow up and medication refill in the setting of chronic low back pain (R>L) with radiation into the posterior BLE d/t PAD as well as spinal stenosis. Pain has been worse this month, especially over this last weekend.Complains of L posterolateral leg pain, primarily in the lateral calf. Describes the pain as an ache with pain worsening with movement and rising from a sitting position. He states he was surprised the pain was occurring in the L leg as pain is usually in the R leg. Still has yet to follow up with a interactive media marketing specialist to rule out any circulation issues but has an upcoming appointment on 04/17/24. Declines wanting to pursue any interventions for the low back or a spinal consultation until after he meets with his interactive media marketing specialist.Reports current medication provides 85% pain relief and allows for increased functionality. Continues to utilize MSER 15mg and [place] 5-325mg QID with significant benefit. Admits to using a few more of his opioid medications over the weekend due to the increased pain. Inquires about increasing the [place]. Denies OIC, which is managed with Colace, or other side effects from current medication regimen. No other concerns today. low back pain Severity level i s 6. Duration: chronic. The problem is fluctuating. It occurs persistently. Symptoms are relieved by pain meds/drugs. Comments: Velasquez is a 63 y/o male who presents for follow up and medication refill in the setting of chronic low back pain (R>L) with radiation into the posterior BLE d/t PAD as well as spinal stenosis. Pain has been fluctuating this month. Ongoing R hand pain has been the most bothersome.Have yet to follow up with a interactive media marketing specialist to rule out any circulation issues. Notes the soonest appointment he could schedule was in 05/2024. Would prefer if he meets with the specialist first prior to pursuing any procedural treatments. In the meantime, he is finding adequate benefit with the TENS unit and current medication regimen.Reports current medication provides 85% pain relief and allows for increased functionality. Continues to utilize MSER 15mg and Tramadol 50mg with significant benefit. Denies OIC, which is managed with Colace, or other side effects from current medication regimen. No other concerns today. Comments: Velasquez is a 63 y/o male who presents for follow up and medication refill in the setting of chronic low back pain (R>L) with radiation into the posterior BLE d/t PAD as well as spinal stenosis.His most bothersome area of pain is in the RIGHT leg and endorses muscle tremors/pain in calf with walking for approximately 0.2miles. He notes he was unable to finish EMG procedure for LE , due to severe pain, hence radiculopathy was not ruled out.. Upon discussion of procedural management, he notes he would like to see interactive media marketing specialist prior to pursuing any procedures, would like circulation issues ruled out. He started Gym[employer] membership . He continues to utilize [place] 5/325mg QID and MS Contin 15mg TID. His current medication regimen provides significant pain relief. He does not present with SE today. low back pain Duration: chroni c. The problem is stable. The client describes the pain as an ache, burning and tingling. Symptoms are aggravated by lifting, standing, walking, housework, movement, standing on one leg and. Symptoms are relieved by heat and pain meds/drugs. Comments: Velasquez is a 63 y/o male [...] pain meds/drugs and sitting. low back pain Duration: chroni c. The [...] is not certain. Velasquez is interested in youth career specialist and states he will attend an appointment prior to JUN.Velasquez manages with [place] 5/325 QID and MS Contin 15mg TID. The patient presents with #8 tabs of [place] 5/325mg and #6 tabs of MS Contin 15mg today. Also supplements with gabapentin 300mg #3 tabs TID with benefit. Current medications regimen provides significant pain relief. No SE reported and manages possible OIC with Senna. No other concerns today. low back pain [...] Notes he had done hand therapy in [place] before without much benefit.Reports current medication provides [...] Notes he had done hand therapy in [place] before without much benefit.Reports current medication provides 98% pain relief and allows for increased functionality. Continues to utilize MSER 15mg and Tramadol 50mg with significant benefit. Inquires about switching the Tramadol to [place] for a month as previous use of [...] positioning. Symptoms are relieved by pain meds/drugs. low [...] the gym at a community center in [place]. Notes the center is primarily for seniors. [...] seeing a neurologist. Have completed PT at [facility]. Unsure if the sessions helped with the pain. Patient recently visited [facility] for severe nausea and decreased [...] by heat, lying down and pain meds/drugs. low back pain Severity level [...] symptoms or changes. 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 Reports current medication regimen provides [...] he has recently found stable housing in [place].Reports current medication regimen provides moderate relief and [...] he has recently found stable housing in [place]. He states he is currently sleeping on [...] today. Comments: Velasquez is a 61 y/o male, who presents for follow up and medication refill in the setting of chronic low back pain with posterior BLE pain d/t PAD (R>L). He states his pain is worse this month d/t increased activity and stress. He states he does not feel safe in the senior care where he is currently staying as he is worried about being robbed. He notes he sometimes sleeps in his car, at [employer] in [place] or [facility].Patient presents without meds to count, d/o [...] by pain meds/drugs, physical therapy and rest. low back pain Severity level [...] he does not feel safe in the senior care where he is currently staying as he is worried about being robbed. He notes he sometimes sleeps in his car, at [employer] in [place] or [facility]. He notes he is currently on a waiting list for housing and the [facility] is helping him find a hotel. [...] meds/drugs and sitting. low back pain (comments) Vleasquez is a 60 y/o male, here for follow up and medication refill in the setting of chronic low back and R hand pain. He also reports leg pain in the setting of PAD, and is following up with vascular specialist. He was last seen 08/02/21. He states his 43 y/o nephew a week ago and he just returned from [place] for the .He reports he lost his [...] smoked some marijuana while he was in [place]. Denies side effects from current medication regimen.No [...] No other concerns today. hand pain right The location is right hand. He states the symptoms are chronic. low back pain (comments) Velasquez is here for an initial consult and presents with low back pain, initial onset 2-3 years ago. The pain radiates down the lateral right leg.Referred by PCP.Treatment Tried:lumbar injection - not helpful.PT at [facility], just started last week.recreational [...] on the way down. low back pain Severity level i s 6. Duration: chronic. It occurs persistently. Location of pain is lower back and right leg.The patient describes the pain as an ache. Symptoms are aggravated by running and walking. Symptoms are relieved by heat, massage, rest and sitting. Functional Status Date Functional Assessmen t No Information Medications Administered Medication Instructions Dosage Effective Dates (start - stop) Status Comments MS Contin 15 mg tablet,extended release take 1 tablet by ORAL route every 8 hours for chronic pain. Start Use Date: 04/15/2024-05/14/2024 - No Longer Active chronic pain, ok to fill today. Instructions Date Instruction Additional Cristianr lorenza Lifestyle education regarding di et Related to Body mass index [BMI] 25.0-25.9, adult Assessments Type Assessment Date assessment Chronic pain syndrome 4 impression This is my first trudy luation of the patient who is routinely followed by my colleague Sandy Howell DNP.Velasquez is a 63 y/o male here for chronic low back pain (R>L) with radiation into the BLE, SI joint pain, BL hip pain (R>L), and R hand pain. Hx of PAD and gout.Expresses concerns that he may have diabetes, as he has been urinating more frequently at night, he has blurred vision, and the bottoms of his feet are constantly burning. Also notes redness/rash at his right chest. Denies any prior chicken pox infection as a kid and has not had a shingles vaccine in the past d/t his fear of needles. Also notes increased pain in his mouth after dental work completed a couple of days ago assessment PAD impression Hx of PAD.Complains of L posterolateral leg pain, primarily in the lateral calf. Describes the pain as an ache with pain worsening with movement and rising from a sitting position. Notes he was surprised the pain was occurring in the L leg as pain is usually in the R leg.[Forwarded Hx]Followed up with vascular surgeon on 06/05/23 for ongoing leg pain, primarily in the R upper thigh with radiation into the groin. Ultrasound results were unremarkable.S/p BL Angiogram on 04/06/22 assessment Radiculopathy, lumbar region Mar impression Ongoing low back max n with radiation into BLE (R>L), worse when going from a sitting position to a standing position as well as prolonged walking. Pain likely from spinal stenosis with neurogenic claudication.[Forwarded Hx]Previous L5-S1 TFESI x3 with minimal benefit.Per outside records from vascular surgeon, there is occlusion of SFA on left side.Review of [facility] notes showed Grade 2 L5-S1 unstable spondylolithesis. Surgical options were discussed but patient was not interested in surgery at that time.EMG of the BLE on 12/22/23 could not rule out superimposed lumbosacral radiculopathy due to patient not tolerating needle study well.Last completed Lumbar MRI on 11/30/21 assessment Pain in right hand impression Ongoing [...] (R>L), likely related to R S1 nerve irritation. Expresses concerns that he may have diabetes. 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 States his last dose of Morphine and [place] was on Monday04/13/2024.Tried: Tramadol 50mg.MME is 75mg/day. Patient has been managing medications appropriately, and is not confused or oversedated during our office visit. [facility] queried and showed no outside prescriptions. UDT results from 12/20/23 previously reviewed and are consistent with current medication regimen. Appropriate to continue with opioid therapy assessment Encounter for therapeutic drug l evel monitoring Mental Status Date Cognitive Assessment Orientation - [place] ed to time, place, person, situation. Patient Care Teams Name Effective Dates (start - stop) Status Members No Information
--- NOTE | 2024-05-09 13:02 | ED.ABDPAIN ---
HPI - Abdominal Pain General Chief Complaint: Abdominal Pain Stated Complaint: Stomach and chest pain Time Seen by Provider: 05/09/24 11:52 History of Present Illness HPI narrative: This 63-year-old male comes in reporting upper epigastric discomfort sometimes radiating up to his chest. This has been present for the past 2 or 3 days. He states that it seemed to occur after having some spicy foods the a friend prepared for him 3 days ago. He does not report any diarrhea, fevers, nausea, vomiting, or constipation. Related Data Home Medications ?Medication ?Instructions ?Recorded ?Confirmed atorvastatin 80 mg tablet mg 04/26/22 03/24/23 hydrochlorothiazide 25 mg tablet mg 04/26/22 03/24/23 allopurinol 300 mg tablet 300 mg PO 08/22/22 03/24/23 gabapentin 600 mg tablet 600 mg PO 08/22/22 03/24/23 losartan 50 mg tablet 50 mg PO 08/22/22 03/24/23 tramadol 50 mg tablet 50 mg PO 08/22/22 03/24/23 cilostazol 100 mg tablet 100 mg PO BID 05/09/24 05/09/24 hydrocodone 7.5 mg-acetaminophen 1 tab PO QID PRN 05/09/24 05/09/24 325 mg tablet morphine 15 mg tablet,extended 15 mg PO 3XD 05/09/24 05/09/24 release Previous Rx's ?Medication ?Instructions ?Recorded loperamide 2 mg capsule (Imodium 2 mg PO Q6H PRN loose stool #20 01/20/24 A-D) caps pantoprazole 20 mg tablet,delayed 20 mg PO DAILY #20 tabs 05/09/24 release (Protonix) Allergies Allergy/AdvReac Type Severity Reaction Status Date / Time lisinopril Allergy Verified 03/04/24 12:47 Review of Systems Status of ROS Reports: 10 or more systems reviewed and unremarkable except as noted in History and below Narrative Constitutional: No fevers, no weight gain or loss. Eyes: No discharge. No vision changes. HENT: No congestion, no sore throat, no ear pain. Cardiovascular: No chest pain, no palpitations. Respiratory: No shortness of breath, no wheezes, no cough. Gastrointestinal: No vomiting, no diarrhea. Upper epigastric abdominal pain. Genitourinary: No dysuria, no hematuria. Musculoskeletal: Normal range of motion. Skin: No rashes, no pruritis. Neurological: No dizziness, weakness, sensory change, speech change. Endo/Heme/Allergies: No bruising or bleeding. No polydipsia. Pysch: no suicidality, no anxiety, no insomnia. All other systems reviewed and are negative. [facility] Medical History Oral infection ?K12.2 - Cellulitis and abscess of mouth (ICD-10) Social History Smoking Status: Current every day smoker What tobacco products do you use: cigarettes Do you use any of these nicotine containing products: None Second hand tobacco smoke exposure: No How often do you have a drink containing alcohol: never How often do you have six or more drinks on one occasion: Never AUDIT-C Alcohol total score: 0 Non-prescribed substance use: marijuana (any form) service: No Exam Narrative: Exam Narrative: Constitutional: Well-developed, well-nourished, no acute distress. HEENT: Normocephalic, atraumatic. Neck: Normal range of motion. Nontender. Supple. Heart: Regular. No murmurs. Normal rate. Intact distal pulses. Lungs: Clear to auscultation. No chest discomfort. No wheezes, rhonchi, or rales. Abdomen: Normal bowel sounds. Upper epigastric abdominal pain. No rebound tenderness. Genitalia: Deferred. Back: No midline tenderness. Normal range of motion. Extremities: Normal range of motion. No injury. Skin: Intact. No rash. Warm. No erythema or pallor. Neurologic: No altered sensation. No weakness. Alert and oriented. Psychiatric: No suicidality. No anxiety or depression. No insomnia. Nursing notes and vitals signs are reviewed. Const: Vital Signs, click to edit/add: Vital Signs - 24 hr 05/09/24 11:53 Temperature 97.2 F L Pulse Rate [Right Pulse Oximeter] 56 L Respiratory Rate 18 Blood Pressure [Ri ght Upper Arm] 163/65 H Pulse Oximetry 96 Oxygen Delivery Me thod Room Air Course Vital Signs Vital signs: Initial Vital Signs Temperature 97.2 F L 05/09/24 11:53 Temperature Source Temporal Artery Scan 05/09/24 11:53 Pulse Rate 56 L 05/09/24 11:53 Pulse Rhythm Regular 05/09/24 11:53 Pulse Strength 3+ Normal 05/09/24 11:53 Respiratory Rate 18 05/09/24 11:53 Blood Pressure 163/65 H 05/09/24 11:53 Blood Pressure Mean 97 05/09/24 11:53 Blood Pressure Position Sitting 05/09/24 11:53 Pulse Oximetry 96 05/09/24 11:53 Oxygen Delivery Method Room Air 05/09/24 11:53 Vital Signs Temperature 97.2 F L 05/09/24 11:53 Pulse Rate 56 L 05/09/24 11:53 Respiratory Rate 18 05/09/24 11:53 Blood Pressure 163/65 H 05/09/24 11:53 Pulse Oximetry 96 05/09/24 11:53 Oxygen Delivery Method Room Air 05/09/24 11:53 Temperature 97.2 F L 05/09/24 11:53 Pulse Rate 56 L 05/09/24 11:53 Respiratory Rate 18 05/09/24 11:53 Blood Pressure 163/65 H 05/09/24 11:53 Pulse Oximetry 96 05/09/24 11:53 Oxygen Delivery Method Room Air 05/09/24 11:53 Medications Administered Medications: Discontinued Medications Generic Name Dose Route Start Last Admin Trade Name Bernie PRN Reason Stop Dose Admin Lidocaine/Aluminum/Magnesium/Simeth 30 ml 05/09/24 12:27 05/09/24 12:33 Gi Cocktail (Visc Lido/Antacid) 30 Ml PO 05/09/24 12:28 30 ml ONCE ONE Administration MDM - Abdominal Pain MDM Narrative Medical decision making narrative: This patient has upper epigastric abdominal discomfort after taking some spicy foods prepared for him several days ago. He arrives with reassuring vital signs. He does not describe any other symptoms. I did discuss lab and imaging options with the patient and also recommended trying a GI cocktail. He agreed to the medicine and states that his pain is much better now after 10 or 15 minutes. His symptoms are likely related to a gastritis with some reflux esophagitis. He received a prescription for Protonix. He is okay to be discharged home. Discharge Plan Discharge Clinical Impression: Gastritis, Esophagitis, reflux Patient Disposition: Home, Self-Care Condition: Improved Additional Instructions: Take medication as needed and directed. Activity as tolerated. Follow up with MD return if worsening. Prescriptions: New pantoprazole [Protonix] 20 mg tablet,delayed release (DR/EC) 20 mg PO DAILY Qty: 20 2RF No Action gabapentin 600 mg tablet 600 mg PO losartan 50 mg tablet 50 mg PO tramadol 50 mg tablet 50 mg PO allopurinol 300 mg tablet 300 mg PO loperamide [Imodium A-D] 2 mg capsule 2 mg PO Q6H PRN (Reason: loose stool) Qty: 20 0RF atorvastatin 80 mg tablet hydrochlorothiazide 25 mg tablet cilostazol 100 mg tablet 100 mg PO BID hydrocodone-acetaminophen 7.5-325 mg tablet 1 tab PO QID PRN morphine 15 mg tablet extended release 15 mg PO 3XD Follow Up/Referrals: Darby Raimrez DO [Primary Care Provider] - Stand Alone Forms: [employer] Info Instructions
== END 2024-05-09 13:36 | disposition home or self-care (01) ==
PROVIDERS: Emergency Provider Emergency Medicine Emergency Medical Services; PCP Family Medicine
DX: K21.00 Gastro-esophageal reflux disease with esophagitis, without bleeding (principal)
CPT/HCPCS: 99283; 99284; A9270